=== PATIENT | female | born 1935 | race Caucasian/White ===

== ENCOUNTER 2021-10-26 15:06 | Emergency (ER) | payer OTHER, MEDICARE ==
--- OUTSIDE RECORDS SUMMARY | 2021-10-26 15:10 | XMS REPORT | Continuity of Care Document ---
:1935 Author Organization [facility] t Address [address] [place] [address] Care Team Providers Name Role Phone BECKY BRANT BANDA Primary Care Physician Unavailable SHANNON DELCID Attending Clinician Unavailable Shannon Delcid DO Attending Clinician YESICA GRIFFIN Attending Clinician Unavailable Danielle SORIANO, Mayuri Mckeon Attending Clinician 3, Ods Attending Clinician Unavailable Field-Hrt, Visual Attending Clinician Unavailable SHANNON DELCID Admitting Clinician Unavailable Payers Payer Name Policy Type Policy Number Effective Date Expiration Date S ource MEDICARE PART A \\T\\ [id number] 2001 B 00:00:00 [facility] [id number] 2012 MEDICARE SUPPLEMENT 00:00:00 MEDICARE PART A \\T\\ [id number] 2013 B - MEDICARE 00:00:00 [facility] MEDICARE [id number] SUPPLEMENT PLAN - [facility] Problems Condition Condition Condition Status Onset Resolution Last Treating Co mments Source Name Details Category Date Date Treatment Clinician Date OAG (open OAG (open Disease Active 2018-0 [place] [facility] angle angle 5-15 College glaucoma) glaucoma) 00:00: of suspect, suspect, 00 Medici n high risk, high risk, e bilateral bilateral Blepharopt Blepharopt Disease Active B osbaldo osis osis 5-17 College 00:00: of 00 Medicin e Open angle Open angle Disease Active 2012-02 Valentin roblero with with 1-06 College borderline borderline 00:00: of findings findings 00 Medici n and low and low e glaucoma glaucoma risk in risk in both eyes both eyes 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 2-13 Co llege eyes eyes 00:00: of 00 Medicin e Glaucoma Glaucoma Disease Active [place] [facility] suspect of suspect of 2-13 Co llege both eyes both eyes 00:00: of 00 Medicin e No known No known Disease Unive rs active active ity of problems problems [facility] Allergies, Adverse Reactions, Alerts Allergy Allergy Status Severity Reaction(s) Onset Inactive Treating Comm ents Source Name Type Date Date Clinician No Known DA Active U 2014-02 [facility] Allergie 0-22 Clear s 00:00: Guo 00 [facility] NO KNOWN Drug Active Univers ALLERGIE Class ity of S [facility] Social History Social Habit Start Date Stop Date Quantity Comments Source Exposure to Not sure [facility]-CoV-2 [facility] (event) Branch Alcohol intake 2021-05-26 2021-05-26 Current [facility] 00:00:00 00:00:00 non-drinker of [facility] alcohol Branch (finding) Tobacco use and 2017-12-18 2017-12-18 Never used Universit y of exposure 00:00:00 00:00:00 [facility] Tobacco Comment 2010-12-31 2010-12-31 lived with a [facility] of 00:00:00 00:00:00 smoker for 40 Medicine years Sex Ass[birth year] At [birth year] Universit y of 00:00:00 00:00:00 [facility] Smoking Status Start Date Stop Date Source Never smoker [facility] Medications Ordered Filled Start Stop Current Ordering Indication Dosage Frequency Signature Comments Components Source Medication Medication Date Date Medication? Clinician (SIG) Name Name iopamidol 2021- No [id number] 100mL 100 mL, Univers (ISOVUE 05-26 Intravenou ity o f 370-500 mL) 17:18: 17:18 s, ONCE, 1 [place] injection 00 :00 dose, On Medica l 100 mL 05/26/21 Branch at 1230, Routine NaCl 0.9% 2021- No 500mL at 999 Univ ers (NS) bolus 4-02 04-02 mL/hr, 500 it y of infusion 17:00: 18:29 mL, IV [place] 500 mL 00 :00 Infusion, Medical ONCE, 1 Branch dose, On 05/26/21 at 1200, STAT ARMOUR 0 Yes Take by [facility] THYROID OR 5-14 mouth. [place] 18:27: of 32 Medicin e LOSARTAN 0 Yes Take by [facility] POTASSIUM-H 5-14 mouth. Ruben august CTZ OR 18:27: of 32 Medicin e TRAMADOL 0 Yes Take by [facility] HCL OR 5-14 mouth. [place] 18:27: of 32 Medicin e aspirin 81 2018- Yes 81mg Take 81 mg [place] MG tablet 5-14 by mouth Ruben august 18:27: daily. of 32 Medicin e FISH OIL 2018-0 Yes [facility] 5-14 [place] 18:27: of 32 Medicin e Calcium 0 Yes Take by [facility] Carbonate-V 5-14 mouth. Ruben august itamin D 18:27: of (CALCIUM + 32 Medicin D OR) e Cyanocobala 0 Yes Take by [place] [facility] min 5-14 mouth. [place] (VITAMIN B 18:27: of 12 OR) 32 Medicin e metformin 0 Yes 500mg Take 500 [place] (GLUCOPHAGE 5-14 mg by [place] ) 500 MG 18:27: mouth 2 of tablet 32 times Medicin daily e (with meals). Multiple 0 Yes Take by [facility] Vitamins-Mi 5-14 mouth. Ruben august nerals 18:27: of (OCUVITE 32 Medicin ADULT 50+ e OR) acetaminoph 0 Yes [id number] 1{tbl} Take 1 Univers en-codeine 3-12 tablet by ity of 300-30 mg 00:00: mouth [place] tablet 00 every 8 Medical (eight) Branch hours as needed for Pain (scale 4-6). metFORMIN 2017-02 Yes 500mg Take 500 Uni vers 500 mg 0-25 mg by ity of tablet 19:19: mouth. [place] 58 Medical Branch levothyroxi 2017-02 Yes 50ug Take 50 Uni vers ne 50 mcg 0-25 mcg by ity of tablet 19:19: mouth [place] [address] every Medical morning. Branch losartan-hy 2017-02 Yes 1{tbl} Take 1 Tab Univers drochloroth 0-25 by mouth ity of iazide 19:18: daily. [place] (HYZAAR) Medical 100-12.5 mg Branch per tablet traMADOL 2017-02 Yes 50mg Take 50 mg Uni vers (ULTRAM) 50 0-25 by mouth ity of mg tablet 19:18: every 6 [place] [address] (six) Medical hours as Branch needed. VITAMIN B 2017-02 Yes Take by [facility] COMPLEX 0-25 mouth. ity of NO.12-NIACI 19:18: [place] N ORAL Medical Branch Fish 2017-02 Yes Take by [facility] [place] [facility] [place]-3 0-25 mouth. ity of Fatty Acids 19:18: [place] (FISH OIL) Medical 360-1,200 Branch mg Cap VITAMIN B 2017-02 Yes Take by [facility] COMP AND 0-25 mouth. ity of VIT C NO.6 19:18: [place] (VITAMIN B 12 Medical COMP WITH Branch VIT C NO.6 ORAL) CALCIUM 2017-02 Yes Take by [facility] [place] [facility] CARBONATE/V 0-25 mouth. ity of ITAMIN D3 19:18: [place] (CALCIUM Medical 500 + D, Branch D3, ORAL) aspirin 81 2017-02 Yes 81mg Take 81 mg U nivers mg chewable 0-25 by mouth ity of tablet 19:18: daily. [address] Biotin 1 mg 2017-02 Yes Take by Uni vers Tab 0-25 mouth. ity of 19:18: [address] Vital Signs Vital Name Observation Time Observation Value Comments Source Systolic blood 2021-05-26 18:17:00 154 mm[Hg] Univer sity of pressure [facility] Diastolic blood 2021-05-26 18:17:00 72 mm[Hg] [facility] rsity of pressure [facility] Respiratory rate 2021-05-26 18:17:00 14 /min [facility] [place] [facility] Oxygen saturation in 2021-05-26 18:17:00 98 /min [facility] Arterial blood by [facility] Pulse oximetry Branch Heart rate 2021-05-26 17:39:00 72 /min [facility] Body temperature 2021-05-26 16:33:00 36.78 [facility] [facility] [place] [facility] Body weight 2021-05-26 16:33:00 57.153 kg [facility] BMI 2021-05-26 16:33:00 23.05 kg/m2 [facility] Procedures Procedure Date / Time Performed Performing Clinician Sourc e URINALYSIS 2021-05-26 17:31:00 [facility] CT CERVICAL SPINE WO 2021-05-26 17:22:31 [facility] CONTRAST [facility] CT HEAD WO CONTRAST 2021-05-26 17:22:[facility] [place] [facility] ABDOMEN PELVIS W 2021-05-26 17:22:00 [facility] COMP. METABOLIC PANEL 2021-05-26 16:59:00 Singer Shannon [facility] ([id number]) [facility] CBC WITH DIFF 2021-05-26 16:59:00 [facility] LACTIC ACID WHOLE 2021-05-26 16:59:00 [facility] BLOOD [facility] Branch OCT, OPTIC NERVE - OU 2019-07-13 18:27:03 Mayuri Santos Mike [facility] BOTH EYES Medicine VILLATORO VISUAL FIELD 2019-07-13 18:27:01 Mayuri Santos Mike [facility] OU - BOTH EYES Medicine Plan of Care Planned Activity Planned Date Details Comments Source Future Scheduled TETANUS SHOT (ADULT) [facility] Test [code = TETANUS SHOT of [facility] (ADULT)] Future Scheduled FALL SCREEN [code = [facility] or [place] Test FALL SCREEN] of Medicine Future Scheduled OSTEOPOROSIS [facility] Arvin ege Test SCREENING [code = of Medicin e OSTEOPOROSIS SCREENING] Future Scheduled PNEUMOVAX >=65 [facility] Co llege Test (PPSV23) [code = of Medicine PNEUMOVAX >=65 (PPSV23)] Future Scheduled PREVNAR >= 65 [facility] Col lege Test (PCV13) [code = of Medicine PREVNAR >= 65 (PCV13)] Future Scheduled MEDICARE AWV [facility] Arvin ege Test (Initial) [code = of Medicin e MEDICARE AWV (Initial)] Future Scheduled FLU VACCINE > 6 [facility] C ollege Test MONTHS [code = FLU of Medici ne VACCINE > 6 MONTHS] Future Scheduled VILLATORO VISUAL 1 Occurrences [facility] Test FIELD - OU - BOTH starting 07/13/2019 of Medicine EYES [code = 88331] until 10/12/2020 Future Scheduled OCT, OPTIC NERVE - 1 Occurrences [facility] Test OU - BOTH EYES [code starting 07/13/2019 of Medicine = 13298] until 10/12/2020 Encounters Start End Encounter Admission Attending Care Care Encounter Source Date/Time Date/Time Type Type Clinicians Facility Department ID 2021-05-26 2021-05-26 Emergency X [facility] ERT [id number] Univers 11:35:00 13:35:00 SHANNON dawson of [facility] 2021-05-26 2021-05-26 Emergency [facility] [id number] Univers 11:35:00 13:35:00 Shannon MAHONEY 350.1.13.10 i ty [facility] [id number] [facility] [id number] [facility] 084 Branch 2020-10-12 2020-10-12 Outpatient SERVANDO GRIFFIN [facility] [id number] [facility] 13:51:12 16:04:54 YESICA august of Medicin e 2020-08-24 2020-08-24 Outpatient SERVANDO GRIFFIN [facility] [id number] [facility] 12:43:34 15:26:11 YESICA august of Medicin e 2019-07-13 2019-07-13 Office Mayuri Santos [facility] [id number] [facility] 12:58:46 13:38:46 Visit 3, Ods AMBULATOR 350.1.13.21 [place] Field-Hrt, Visual Y 0.2.7.2.686 [id number] [facility] carlos 300 e Results Test Description Test Time Test Comments Results Result Comments Source COMP. METABOLIC PANEL (86784) 2021-05-26 17:28:49 Test Item Value Reference Range Interpretation Comme nts NA (test code = 8563738583) 137 mmol/L 135-145 K (test code = 4201460957) 4.6 mmol/L 3.5-5.0 CL (test code = 3496393456) 101 mmol/L 98-108 CO2 TOTAL (test code = 6955245626) 24 mmol/L 23-31 AGAP (test code = 4833059771) 2-16 BUN (test code = 4106261651) 28 mg/dL 7-23 H GLUCOSE (test code = 9145577734) 116 mg/dL 70-110 H CREATININE (test code = 0.85 mg/dL 0.50-1.04 0392814507) TOTAL BILI (test code = 1.2 mg/dL 0.1-1.1 H 3808177162) CALCIUM (test code = 3621421734) 9.2 mg/dL 8.6-10.6 T PROTEIN (test code = 6283283650) 7.5 g/dL 6.3-8.2 ALBUMIN (test code = 8809190956) 4.6 g/dL 3.5-5.0 ALK PHOS (test code = 1748801530) 76 U/L 34-122 ALTv (test code = 1742-6) 17 U/L 5-35 AST(SGOT) (test code = 8864615640) 29 U/L 13-40 eGFR (test code = 9088422452) mL/min/1.73m2 SLICK (test code = SLICK) Association of Glomerular Filtration Rate (GFR) and Staging of Kidney Disease* + +-------- + ------+| GFR (mL/min/1.73 m2) ?| With Kidney Damage ?| ?Without Kidney Damage+ +-- + +| ?>90 ?| ?Stage one ?| ? Normal ?+ +------- + -------+| ?60-89 ?| ?Stage two ?| ? Decreased GFR ? + +-------- + ------+| ?30-59 ?| ?Stage three ?| ? Stage three ? + +-------- + ------+| ?15-29 ?| ?Stage four ? | ? Stage four ?+ +------- + -------+| ?<15 (or dialysis) ? ?| ?Stage five ? | ? Stage five ?+ +------- + -------+ *Each stage assumes the associated GFR level has been in effect for at least three months. ?Stages 1 to 5, with or without kidney disease, indicate chronic kidney disease. Notes: Determination of stages one and two (with eGFR >59mL/min/1.73 m2) requires estimation of kidney damage for at least three months as defined by structural or functional abnormalities of the kidney, manifested by either:Pathological abnormalities or Markers of kidney damage (including abnormalities in the composition of the blood or urine or abnormalities in imaging tests). Lab Interpretation (test code = Abnormal 22890-5) [facility] WITH [id number] 17:16:47 Test Item Value Reference Range Interpretation Comments WBC (test code = See_Comment [Automated 0190-2) message] The sy stem which generated this result transmitted reference range : 4.30 - 11.10 10*3/?L. The reference range was not used to interpret this result as normal/abnormal . RBC (test code = See_Comment [Automated 829-8) message] The sy stem which generated this result transmitted reference range : 3.93 - 5.25 10*6/?L. The reference range was not used to interpret this result as normal/abnormal . HGB (test code = 13.6 g/dL 11.6-15.0 718-7) HCT (test code = 42.1 % 35.7-45.2 4544-3) MCV (test code = 95.9 fL 80.6-95.5 H 787-2) MCH (test code = 31.0 pg 25.9-32.8 785-6) MCHC (test code = 32.3 g/dL 31.6-35.1 786-4) RDW-SD (test code = 54.6 fL 39.0-49.9 H 13213-4) RDW-CV (test code = 15.6 % 12.0-15.5 H 788-0) PLT (test code = See_Comment [Automated 777-3) message] The sy stem which generated this result transmitted reference range : 166 - 358 10*3/ ?L. The reference r jossue was not used to interpret this result as normal/abnormal . MPV (test code = 9.7 fL 9.5-12.9 51893-0) NRBC/100 WBC (test See_Comment [Automat ed code = 2802792002) message] The system which generated this result transmitted reference range : 0.0 - 10.0 /100 WBCs. The refer ence range was not u sed to interpret th is result as normal/abnormal . NRBC x10^3 (test code <0.01 See_Comment [Auto mated = 6670023339) message] The s ystem which generated this result transmitted reference range : 10*3/?L. The reference range was not used to interpret this result as normal/abnormal . GRAN MAT (NEUT) % 67.3 % (test code = 770-8) IMM GRAN % (test code 0.30 % = 3545392028) LYMPH % (test code = 21.7 % 736-9) MONO % (test code = 9.8 % 5905-5) EOS % (test code = 0.6 % 713-8) BASO % (test code = 0.3 % 706-2) GRAN MAT x10^3(ANC) 4.30 10*3/uL 1.88-7.09 (test code = 4673108997) IMM GRAN x10^3 (test <0.03 0.00-0.06 code = 1425405580) LYMPH x10^3 (test code 1.39 10*3/uL 1.32-3.29 = 731-0) MONO x10^3 (test code 0.63 10*3/uL 0.33-0.92 = 742-7) EOS x10^3 (test code = 0.04 10*3/uL 0.03-0.39 711-2) BASO x10^3 (test code <0.03 0.01-0.07 = 704-7) Lab Interpretation Abnormal (test code = 00278-3) [facility] [id number] 17:06:56 Test Item Value Reference Range Interpretation Comments LACTIC ACID (test code = 1.39 mmol/L 0.50-2.20 5863251839) Lab Interpretation (test code = Normal 32562-8) [facility] - OU - BOTH [id number] 19:00:13OCT Glaucoma RNFL Interpretation06/2019 OD OS Quality Good Good Interpretation Borderline N2020 G= 89Borderline YW3929 G= 87 Change Ytugcy0522 G= 482954 G= 851675 G= 90 Stable 2016 G= 437328 G= 895065 G= 85[facility] VISUAL FIELD - OU - BOTH [id number] 18:59:01VF Interpretation06/2019 OD24-2 OS24-2 Reliability Good Good Defect Scatter 2019 MD: -1.07 Scatter 2019 MD: -1.50 Deterioration Stable 2014 MD: -0.564447 MD: - 2.305751 MD: -0.361423 MD: -0.166388 MD: -1.92 [id number] MD: -0.699814 MD: - 2.704770 MD: -0.736850 MD: -2.545684 MD: -2.50[facility] XR FLUORO [id number] 12:20:00 Patient Name: RAVINDER AUSTIN Unit No: [id number] EXAMS: CPT CODE: [id number] XR [place]UORO NDL 75314 FLUOROSCOPICALLY GUIDED left prosthetic knee joint ASPIRATION COMMENT: After informed consent was obtained a 22-gauge needle is inserted into left prosthetic knee joint under fluoroscopic control using sterile technique. 2 mL of fluid was aspirated. This is sent to the lab for analysis. The patient tolerated the procedure well. 0.5 minutes of fluoroscopy time was used on this exam. at 1220 Reported and signed by: Vida Manley MD CC: Alexandra Matthews MD Technologist: Sanna Estrella RT.(R) Transcribed D/ (1220) [email or web address] [facility] NAME: RAVINDER AUSTIN [address] PHYS: Pascual Talley MD : 1935 AGE: 83 SEX: F [place], [place] [address] LOC: Y.LAB PHONE #: EXAM DATE: 05/07/2018 STATUS: DEP CLI FAX #: [phone] RAD #: D/C DT PAGE 1 Signed Report Patient Name: RAVINDER AUSTIN Unit No: [id number] EXAMS: CPT CODE: [id number] XR FLUORO [id number] (Continued) Orig Print D/T: S: 05/11/2018 (1223) [facility] [place] [facility] NAME: PATRICIA AUSTIN [address] PHYS: Alexandra Talley MD : 1935 AGE: 83 SEX: F [place], [place] [address] LOC: Y.LAB PHONE #: [phone] EXAM DATE: 05/07/2018 STATUS: DEP CLI FAX #: [phone] RAD #: D/C DT PAGE 2 Signed ReportCBC W/AUTO [id number] 12:31:00 Test Item Value Reference Range Interpretation Comments WHITE BLOOD CELL (test code = WBC) 11.5 K/mm3 5.8-11.0 H RED BLOOD CELL (test code = RBC) 4.27 M/mm3 4.2-5.4 N HEMOGLOBIN (test code = HGB) 12.8 g/dL 12-16 N HEMATOCRIT (test code = HCT) 38.1 % 37-47 N MEAN CELL VOLUME (test code = MCV) 89 fL 80-98 N MEAN CELL HGB (test code = MCH) 30.0 pg 27-34 N MEAN CELL HGB CONCENTRATION (test 33.6 g/dL 30.8-34.1 N code = MCHC) RED CELL DISTRIBUTION WIDTH (test 14.6 % 11-16 N code = RDW) PLT (test code = PLT) 261 K/mm3 130-400 N MEAN PLATELET VOLUME (test code = 10.8 fL 8.9-12.1 N MPV) NEUTROPHIL % (test code = NT%) 65.4 % 45-70 N LYMPHOCYTE % (test code = LY%) 26.0 % 20-40 N MONOCYTE % (test code = MO%) 7.8 % 3-10 N EOSINOPHIL % (test code = EO%) 0.3 % 1-5 L BASOPHIL % (test code = BA%) 0.2 % 0.0-1.1 N NEUTROPHIL # (test code = NT#) 7.53 K/mm3 2.00-7.50 H LYMPHOCYTE # (test code = LY#) 3.00 K/mm3 1.50-4.00 N MONOCYTE # (test code = MO#) 0.90 K/mm3 0.2-0.8 H EOSINOPHIL # (test code = EO#) 0.04 K/mm3 0.04-0.4 N BASOPHIL # (test code = BA#) 0.02 K/mm3 0.02-0.10 N MANUAL DIFF REQUIRED (test code = NO MANUAL DIFF MDIFF) NUCLEATED RED BLOOD CELL (test 0 % 0-0 N code = NRBC) SED [id number] 12:31:00 Test Item Value Reference Range Interpretation Comments SED RATE (test code = SEDW) 14 mm/hr 0-[id number] 12:04:00 Test Item Value Reference Range Interpretation Comments SYNOVIAL FLD COLOR (test BLOODY LT. YELLOW A code = COLSY) SYNOVIAL FLD APPEARANCE BLOODY CLEAR A (test code = APPSY) SYNOVIAL FLD VOLUME (test 0.5 mL code = VOLSY) SYNOVIAL FLD WBC (test code 4510.000 /MM3 0-200 H = WBCSY) SYNOVIAL FLD RBC (test code 2206382.000 /mm3 0-2 H = RBCSY) SYNOVIAL FLD POLY (test code 52 % 0-25 H = POLYSY) SYNOVIAL FLD LYMPHOCYTE 24 % 0-78 N (test code = LYMPHSY) SYNOVIAL FLD MONOCYTE (test 21 % 0-71 N code = MONOSY) SYNOVIAL FLD OTHER CELL EOSINOPHILS = 3 (test code = OTHERSY) SPECIMEN COMMENT: ASPIRATED PER DR MANLEY, LEFT KNEEC REACTIVE [id number] 11:55:00 Test Item Value Reference Range Interpretation Comments C REACTIVE PROTEIN (test code = < 0.2 mg/dL <0.9 CRP) CBC W/AUTO [id number] 11:45:00 Test Item Value Reference Range Interpretation Comments WHITE BLOOD CELL (test code = WBC) 11.5 K/mm3 5.8-11.0 H RED BLOOD CELL (test code = RBC) 4.27 M/mm3 4.2-5.4 N HEMOGLOBIN (test code = HGB) 12.8 g/dL 12-16 N HEMATOCRIT (test code = HCT) 38.1 % 37-47 N MEAN CELL VOLUME (test code = MCV) 89 fL 80-98 N MEAN CELL HGB (test code = MCH) 30.0 pg 27-34 N MEAN CELL HGB CONCENTRATION (test 33.6 g/dL 30.8-34.1 N code = MCHC) RED CELL DISTRIBUTION WIDTH (test 14.6 % 11-16 N code = RDW) PLT (test code = PLT) 261 K/mm3 130-400 N MEAN PLATELET VOLUME (test code = 10.8 fL 8.9-12.1 N MPV) NEUTROPHIL % (test code = NT%) 65.4 % 45-70 N LYMPHOCYTE % (test code = LY%) 26.0 % 20-40 N MONOCYTE % (test code = MO%) 7.8 % 3-10 N EOSINOPHIL % (test code = EO%) 0.3 % 1-5 L BASOPHIL % (test code = BA%) 0.2 % 0.0-1.1 N NEUTROPHIL # (test code = NT#) 7.53 K/mm3 2.00-7.50 H LYMPHOCYTE # (test code = LY#) 3.00 K/mm3 1.50-4.00 N MONOCYTE # (test code = MO#) 0.90 K/mm3 0.2-0.8 H EOSINOPHIL # (test code = EO#) 0.04 K/mm3 0.04-0.4 N BASOPHIL # (test code = BA#) 0.02 K/mm3 0.02-0.10 N MANUAL DIFF REQUIRED (test code = NO MANUAL DIFF MDIFF) NUCLEATED RED BLOOD CELL (test 0 % 0-0 N code = NRBC) SED [id number] 11:45:00 Test Item Value Reference Range Interpretation Comments SED RATE (test code = SEDW) mm/hr 0-[id number] 11:42:00 Test Item Value Reference Range Interpretation Comments SYNOVIAL FLD COLOR (test BLOODY LT. YELLOW A code = COLSY) SYNOVIAL FLD APPEARANCE BLOODY CLEAR A (test code = APPSY) SYNOVIAL FLD VOLUME (test 0.5 mL code = VOLSY) SYNOVIAL FLD WBC (test code 4510.000 /MM3 0-200 H = WBCSY) SYNOVIAL FLD RBC (test code 1663181.000 /mm3 0-2 H = RBCSY) SPECIMEN COMMENT: ASPIRATED PER DR MANLEY, LEFT KNEESYNOVIAL FLD CELL CT/DIFF 2018-05-07 11:41:00 Test Item Value Reference Range Interpretation Comments SYNOVIAL FLD COLOR (test LT. YELLOW code = COLSY) SYNOVIAL FLD APPEARANCE CLEAR (test code = APPSY) SYNOVIAL FLD VOLUME (test mL code = VOLSY) SYNOVIAL FLD WBC (test code 4510.000 /MM3 0-200 H = WBCSY) SYNOVIAL FLD RBC (test code 5057307.000 /mm3 0-2 H = RBCSY) SPECIMEN COMMENT: ASPIRATED PER DR MANLEY, LEFT KNEE"
--- NOTE | 2021-10-26 16:06 | RAD REPORT ---
EXAM DESCRIPTION: CT - CTHCSPWOC - 10/26/2021 3:46 pm CLINICAL HISTORY: Trauma, head and neck injury. trauma, head injury, blood thinners COMPARISON: No comparisons TECHNIQUE: Axial 5 mm thick images of the head were obtained. Axial 2 mm thick images of the cervical spine were obtained with sagittal and coronal reconstruction images generated and reviewed. All CT scans are performed using dose optimization technique as appropriate and may include automated exposure control or mA/KV adjustment according to patient size. FINDINGS: CT HEAD WITHOUT CONTRAST: No acute hemorrhage, hydrocephalus or extra-axial collection is identified.Moderate generalized brain atrophy is present with mild periventricular and deep white matter chronic microvascular ischemic ch anges.No areas of brain edema or midline shift. The paranasal sinuses and mastoids are clear.The calvarium is intact. CT CERVICAL SPINE WITHOUT CONTRAST: No fracture or subluxation.Mild cervical degenerative changes are present.No prevertebral soft tissue s swelling is identified. IMPRESSION: No acute intracranial or cervical spine findings.
--- NOTE | 2021-10-26 16:36 | RAD REPORT ---
EXAM DESCRIPTION: RAD - Lumbar Spine 3 Views - 10/26/2021 4:03 pm CLINICAL HISTORY: PAIN Radiculopathy COMPARISON: No comparisons FINDINGS: Diffuse osteopenia is seen. Disc thinning is present with vacuum disc degeneration at L2-3 and L3-4. Mild dextroscoliosis is present. Wedging of anterior superior aspects of the upper lumbar vertebra has a chronic appearance. Aortic atherosclerosis. 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 No acute fracture suspected, although degree of osteopenia does limit assessment.
--- NOTE | 2021-10-26 16:38 | RAD REPORT ---
EXAM DESCRIPTION: RAD - Thoracic Spine Ap/Lat - 10/26/2021 4:04 pm CLINICAL HISTORY: fall Radiculopathy COMPARISON: No comparisons FINDINGS: Diffuse osteopenia is noted. Mild wedge compression deformity of lower thoracic vertebral bodies are present, likely chronic. No significant malalignment. IMPRESSION: Mild thoracic spondylosis is present. No acute finding suspected.
[2021-10-26] MEDS ORDERED: ACETAMINOPHEN 325 MG TABLET ONE (16:45)
--- NOTE | 2021-10-26 17:14 | EDPHYS ---
Physician Documentation [facility] Name: Anna Cuello Age: 86 yrs Sex: Female : 1935 Arrival Date: 10/26/2021 Time: 15:18 Bed 2 Private MD: ED Physician Saeed Kim HPI: 10/26 23:43 This 86 yrs old Female presents to ER via EMS with complaints of fall. kb 23:43 Details of fall: The patient fell from an upright position, while walking. Onset: The kb symptoms/episode began/occurred just prior to arrival. Associated injuries: The patient sustained injury to the head, abrasion, hematoma, pain, neck injury, pain, pain with movement, tenderness, upper back injury, pain, pain with movement, tenderness, injury to the low back, pain, pain with movement, tenderness. Severity of symptoms: At their worst the symptoms were moderate, in the emergency department the symptoms are unchanged. The patient has not experienced similar symptoms in the past. The patient has not recently seen a physician. Pt was shopping at [employer] when her walker got away from her and she fell backwards. c/o headache, neck and back pain. Denies loc. Historical: - Allergies: 15:22 No Known Allergies; ld1 - Home Meds: 15:22 [employer] Thyroid 120 mg oral tab 1 tab once daily [Active]; allopurinol 300 mg Oral tab 1 tab ld1 once daily [Active]; metformin 500 mg Oral Tb24 1 tab once daily [Active]; tramadol 50 mg Oral tab 1 tab every 4-6 hours [Active]; losartan-hydrochlorothiazide 100-12.5 mg oral tab 1 tab once daily [Active]; methenamine hippurate 1 gram oral tab 1 tab 2 times per day [Active]; Xarelto 15 mg oral tab 1 tab once daily [Active]; amiodarone 200 mg Oral tab 1 tab once daily [Active]; - PMHx: 15:22 Hypothyroidism; Gout; Diabetes mellitus; Hypertensive disorder; ld1 - PSHx: 15:22 Total abdominal hysterectomy; ld1 - Immunization history:: Adult Immunizations up to date, Client reports receiving the 2nd dose of the Covid vaccine. - Social history:: Smoking status: Patient denies any tobacco usage or history of. Patient/guardian denies using alcohol. - Immunization history: Last tetanus immunization: unknown. ROS: 23:43 Constitutional: Negative for fever, chills, and weight loss. kb 23:43 Neck: Positive for pain with movement, pain at rest, bony tenderness. 23:43 Back: Positive for pain at rest, pain with movement, of the thoracic area and lumbar area. 23:43 Skin: Positive for abrasion(s). 23:43 Neuro: Positive for headache. 23:43 All other systems are negative. Exam: 23:43 Constitutional: This is a well developed, well nourished patient who is awake, alert, kb and in no acute distress. Eyes: Pupils equal round and reactive to light, extra-ocular motions intact. Lids and lashes normal. Conjunctiva and sclera are non-icteric and not injected. Cornea within normal limits. Periorbital areas with no swelling, redness, or edema. ENT: Moist Mucous membranes Cardiovascular: Regular rate and rhythm with a normal S1 and S2. No gallops, murmurs, or rubs. No pulse deficits. Respiratory: Respirations even and unlabored. No increased work of breathing. Talking in full sentences Abdomen/GI: Soft, non-tender. No distention MS/ Extremity: Pulses equal, no cyanosis. Neurovascular intact. Full, normal range of motion. Neuro: Awake and alert, GCS 15, oriented to person, place, time, and situation. Moves all extremities. Normal gait. Psych: Awake, alert, with orientation to person, place and time. Behavior, mood, and affect are within normal limits. 23:43 Head/face: Noted is no obvious of injury or deformity except abrasion(s), that are mild, of the right occipital area, hematoma, that is moderate, of the right occipital area. 23:43 Neck: C-spine: vertebral tenderness, that is mild, diffusely. 23:43 Back: vertebral tenderness, is appreciated at thoracic spine and lumbar spine. 23:43 Skin: injury, abrasion(s), small abrasion noted, of the right occipital area. Vital Signs: 15:21 BP 159 / 73; Pulse 84; Resp 18; Temp 97.9(TE); Pulse Ox 100% on R/A; Weight 63.96 kg; ld1 Height 5 ft. 4 in. (162.56 cm); Pain 9/10; 17:09 BP 176 / 94; Pulse 73; Resp 18; Pulse Ox 100% on R/A; Pain 5/10; ld1 15:21 Body Mass Index 24.20 (63.96 kg, 162.56 cm) ld1 Edmundo Coma Score: 15:28 Eye Response: spontaneous(4). Verbal Response: oriented(5). Motor Response: obeys ld1 commands(6). Total: 15. Trauma Score (Adult): 15:28 Eye Response: spontaneous(1); Verbal Response: oriented(1); Motor Response: obeys ld1 commands(2); Systolic BP: > 89 mm Hg(4); Respiratory Rate: 10 to 29 per min(4); [place] Score: 15; Trauma Score: 12 MDM: 15:18 Patient medically screened. kb 23:45 Data reviewed: vital signs, nurses notes. Data interpreted: Pulse oximetry: on room air kb is 100 %. Interpretation: normal. Counseling: I had a detailed discussion with the patient and/or guardian regarding: the historical points, exam findings, and any diagnostic results supporting the discharge/admit diagnosis, radiology results, the need for outpatient follow up, a family practitioner, to return to the emergency department if symptoms worsen or persist or if there are any questions or concerns that arise at home. 10/26 15:19 Order name: CT Head C Spine; Complete Time: 16:10 kb 10/26 15:19 Order name: Lumbar Spine (3 Views) XRAY; Complete Time: 16:53 kb 10/26 15:45 Order name: Thoracic Spine Ap/Lat; Complete Time: 16:53 EDMS Administered Medications: 17:09 Drug: Tylenol 650 mg Route: PO; ld1 Disposition Summary: 10/26/21 17:13 Discharge Ordered Location: Home kb Condition: Stable kb Diagnosis - Fall on same level from slipping, tripping and stumbling without subsequent kb striking against object - Unspecified injury of head, initial encounter kb - Abrasion of scalp kb - Cervicalgia kb - Back pain kb Followup: kb - With: Emergency Department - When: As needed - Reason: Worsening of condition Followup: kb - With: Private Physician - When: 2 - 3 days - Reason: Recheck today's complaints, Continuance of care, Re-evaluation by your physician Discharge Instructions: - Discharge Summary Sheet kb - Hematoma, [id number] kb - Musculoskeletal Pain kb - Head Injury, Adult, [id number] kb Forms: - Medication Reconciliation Form kb - Thank You Letter kb - Antibiotic Education kb - Prescription Opioid Use kb Addendum: 10/30/2021 07:36 Co-signature as Attending Physician, Saeed Kim MD. r n Signatures: Dispatcher [employer] EDMS Krystal Brady, RN OBGYN-C RN OBGYN-Ckb Saeed Kim MD MD rn Dibbern, Lauren, RN RN ld1 Corrections: (The following items were deleted from the chart) 10/26 15:26 15:22 PMHx: Hyperthyroidism; ld1 ld1 15:44 15:23 Thoracic Spine W obliques ordered. EDMS EDMS
--- NOTE | 2021-10-26 17:14 | ER ---
Nurse's Notes [facility] Name: Anna Cuello Age: 86 yrs Sex: Female : 1935 Arrival Date: 10/26/2021 Time: 15:18 Bed 2 Private MD: Diagnosis: Fall on same level from slipping, tripping and stumbling without subsequent striking against object;Unspecified injury of head, initial encounter;Abrasion of scalp;Cervicalgia;Back pain Presentation: 10/26 15:21 Chief complaint: EMS states: toned out to [employer] due to a fall. Pt reports walker ld1 getting "away from her", pt fell backwards and hit head on concrete. Pt c/o pain in the back of head. Denies LOC - pt is on blood thinners. Coronavirus screen: At this time, the client does not indicate any symptoms associated with coronavirus-19. Ebola Screen: No symptoms or risks identified at this time. Initial Sepsis Screen: Does the patient meet any 2 criteria? No. Patient's initial sepsis screen is negative. Does the patient have a suspected source of infection? No. Patient's initial sepsis screen is negative. Initial Sepsis Screen: Does the patient meet any 2 criteria?. Risk Assessment: Do you want to hurt yourself or someone else? Patient reports no desire to harm self or others. Onset of symptoms was October 26, 2021. 15:21 Method Of Arrival: EMS: [facility] ld1 15:21 Acuity: JERALD 3 ld1 15:28 Care prior to arrival: None. Mechanism of Injury: Fall from standing position. Trauma ld1 event details: Injury occurred in the [facility], Injury occurred: in a public building. Injury occurred: October 26, 2021. Triage Assessment: 15:22 General: Appears in no apparent distress. comfortable, Behavior is calm, cooperative, ld1 appropriate for age. Pain: Complains of pain in scalp Pain does not radiate. Pain currently is 9 out of 10 on a pain scale. Quality of pain is described as throbbing. EENT: No signs and/or symptoms were reported regarding the EENT system. EENT: Neuro: Neuro: Level of Consciousness is awake, alert, obeys commands, Oriented to person, place, time, situation, Appropriate for age Reports headache. Cardiovascular: Capillary refill < 3 seconds Patient's skin is warm and dry. Rhythm is irregular. Respiratory: Airway is patent Respiratory effort is even, unlabored. GI: Abdomen is round non-distended. : No signs and/or symptoms were reported regarding the genitourinary system. Derm: No signs and/or symptoms reported regarding the dermatologic system. Musculoskeletal: No signs and/or symptoms reported regarding the musculoskeletal system. Trauma Activation: Alert Physician: ED Physician; Name: ; Notified At: 15:19; Arrived At: Physician: General Surgeon; Name: ; Notified At: 15:19; Arrived At: Physician: Radiology; Name: ; Notified At: 15:19; Arrived At: Physician: Respiratory; Name: ; Notified At: 15:19; Arrived At: Physician: Lab; Name: ; Notified At: 15:19; Arrived At: Historical: - Allergies: 15:22 No Known Allergies; ld1 - Home Meds: 15:22 [employer] Thyroid 120 mg oral tab 1 tab once daily [Active]; allopurinol 300 mg Oral tab 1 tab ld1 once daily [Active]; metformin 500 mg Oral Tb24 1 tab once daily [Active]; tramadol 50 mg Oral tab 1 tab every 4-6 hours [Active]; losartan-hydrochlorothiazide 100-12.5 mg oral tab 1 tab once daily [Active]; methenamine hippurate 1 gram oral tab 1 tab 2 times per day [Active]; Xarelto 15 mg oral tab 1 tab once daily [Active]; amiodarone 200 mg Oral tab 1 tab once daily [Active]; - PMHx: 15:22 Hypothyroidism; Gout; Diabetes mellitus; Hypertensive disorder; ld1 - PSHx: 15:22 Total abdominal hysterectomy; ld1 - Immunization history:: Adult Immunizations up to date, Client reports receiving the 2nd dose of the Covid vaccine. - Social history:: Smoking status: Patient denies any tobacco usage or history of. Patient/guardian denies using alcohol. - Immunization history: Last tetanus immunization: unknown. Screenin:28 Abuse screen: Denies threats or abuse. Denies injuries from another. Tuberculosis ld1 screening: No symptoms or risk factors identified. 15:31 Nutritional screening: No deficits noted. Fall Risk None identified. ld1 Primary Survey: 15:28 NO uncontrolled hemorrhage observed. Breathing/Chest: Spontaneous respiratory effort, ld1 equal unlabored respirations, breath sounds clear bilaterally, regular pattern, symmetrical chest rise and fall. Circulation: No external hemorrhage present. Regular and strong central pulse, skin warm/dry/normal color. Disability Client is alert. Exposure/Environment: All clothing and personal items were removed. Forensic evidence collection is not deemed to be indicated at this time. Items placed in patient belonging bag. There is no evidence of uncontrolled external bleeding. Reassessment Breathing: Spontaneous respiratory effort, equal unlabored respirations, breath sounds clear bilaterally, regular pattern with symmetrical chest rise and fall. Circulation: No external hemorrhage noted. Regular and strong central pulse, skin warm/dry/normal color. Disability: Alert. Assessment: 15:27 Reassessment: See triage assessment. ld1 15:28 General: Appears in no apparent distress. comfortable, Behavior is calm, cooperative, ld1 appropriate for age. Pain: Complains of pain in scalp Pain does not radiate. Pain currently is 9 out of 10 on a pain scale. Quality of pain is described as throbbing, Pain began suddenly. Neuro: Level of Consciousness is awake, alert, obeys commands, Oriented to person, place, time, situation. EENT: No signs and/or symptoms were reported regarding the EENT system. Cardiovascular: Capillary refill < 3 seconds Patient's skin is warm and dry. Rhythm is irregular. Respiratory: Airway is patent Respiratory effort is even, unlabored. GI: Abdomen is round non-distended. : No signs and/or symptoms were reported regarding the genitourinary system. Derm: No signs and/or symptoms reported regarding the dermatologic system. Musculoskeletal: No signs and/or symptoms reported regarding the musculoskeletal system. Vital Signs: 15:21 BP 159 / 73; Pulse 84; Resp 18; Temp 97.9(TE); Pulse Ox 100% on R/A; Weight 63.96 kg; ld1 Height 5 ft. 4 in. (162.56 cm); Pain 9/10; 17:09 BP 176 / 94; Pulse 73; Resp 18; Pulse Ox 100% on R/A; Pain 5/10; ld1 15:21 Body Mass Index 24.20 (63.96 kg, 162.56 cm) ld1 Edmundo Coma Score: 15:28 Eye Response: spontaneous(4). Verbal Response: oriented(5). Motor Response: obeys ld1 commands(6). Total: 15. Trauma Score (Adult): 15:28 Eye Response: spontaneous(1); Verbal Response: oriented(1); Motor Response: obeys ld1 commands(2); Systolic BP: > 89 mm Hg(4); Respiratory Rate: 10 to 29 per min(4); [place] Score: 15; Trauma Score: 12 ED Course: 15:18 Patient arrived in ED. eb 15:18 Krystal Brady FNP-C is [facility]. kb 15:18 Saeed Kim MD is Attending Physician. kb 15:21 Nikki Barton RN is Primary Nurse. ld1 15:22 Triage completed. ld1 15:22 Arm band placed on right wrist. ld1 15:28 Patient has correct armband on for positive identification. Placed in gown. Bed in low ld1 position. Call light in reach. Side rails up X2. Patient maintains SpO2 saturation greater than 95% on room air. 15:28 Patient maintains SpO2 saturation greater than 95% on room air. ld1 15:31 No provider procedures requiring assistance completed. ld1 15:48 CT Head C Spine In Process Unspecified. EDMS 16:07 Lumbar Spine (3 Views) XRAY In Process Unspecified. EDMS 16:07 Thoracic Spine Ap/Lat In Process Unspecified. EDMS 17:09 Patient did not have IV access during this emergency room visit. ld1 17:09 Thermoregulation: warm blanket given to patient. ld1 Administered Medications: 17:09 Drug: Tylenol 650 mg Route: PO; ld1 Medication: 17:10 VIS not applicable for this client. ld1 Intake: 15:28 PO: 50ml (Water); Total: 50ml. ld1 Outcome: 17:09 Discharged to home via wheelchair, with family. ld1 17:09 Condition: stable 17:09 Discharge instructions given to patient, Instructed on discharge instructions, follow up and referral plans. Demonstrated understanding of instructions, follow-up care. 17:09 Patient's length of stay was not longer than 2 hours. ld1 17:13 Discharge ordered by . kb 17:19 Patient left the ED. ld1 Signatures: Dispatcher [employer] EDMS Jose Antonio, Krystal, [employer]UCKING [employer]WING MACHINE OPERATOR-C CHUCKING [employer] SAWING MACHINE OPERATOR-Ckb Carissa Fried Lauren, RN RN ld1 Corrections: (The following items were deleted from the chart) 15:26 15:22 PMHx: Hyperthyroidism; ld1 ld1
[2021-10-26 18:26] VITALS: TEMP 97.9; O2SAT 100
[2021-10-26 18:28] VITALS: BP 176/94
== END 2021-10-26 17:19 | disposition home or self-care (01) ==
LOC: ER 15:06
DX: S00.01XA Abrasion of scalp, initial encounter (principal); M54.2 Cervicalgia; M54.9 Dorsalgia, unspecified; W01.0XXA Fall on same level from slipping, tripping and stumbling without subsequent striking against object, initial encounter; E11.9 Type 2 diabetes mellitus without complications; I10 Essential (primary) hypertension; E03.9 Hypothyroidism, unspecified; Z79.01 Long term (current) use of anticoagulants
CPT/HCPCS: 70450; 72070; 72100; 72125; 99284

== ENCOUNTER 2024-05-08 14:27 | Emergency (ER) | payer OTHER, MEDICARE ==
--- OUTSIDE RECORDS SUMMARY | 2024-05-08 14:34 | XMS REPORT | Continuity of Care Document ---
Author Name Unknown Address [address] [facility] [address] [place] [address] [facility] [place] Address [address] [facility] [address] [place] [address] Care Team Providers Care Entry Analyst Name Role Phone MAYCOL PATEL Primary Care Physician Unavailab MIKE Wallace Attending Clinician Unavail able MIKE WALDEN Attending Clinician Unavail able JANETTE MUÑOZ Attending Clinician Unavailable JANETTE MUÑOZ Attending Clinician Unavailable JENNIFER HORTA Attending Clinician Unavailable Jennifer England Attending Clinician [phone] Unknown, Attending Attending Clinician UnavailMike Vuong MD Attending Clinician [phone] Alisha Escalera MD Attending Clinician [phone] ALISHA ESCALERA Attending Clinician Unavailable KAVYA TUBBS Attending Clinician UnavailKavya Chow Attending Clinician [phone] HILDA ALARCON Attending Clinician Unavailable Hilda Roach Attending Clinician [phone] Unknown, Attending Attending Clinician Unavailab jared Radiology Attending Clinician Unavailable RADIOLOGY Attending Clinician Unavailable Mike Walden MD Attending Clinician +[phone] [email or web address] Attending Clinician Unavail able NINA SAENZ Attending Clinician Unavailable Doctor Unassigned, [employer] Attending Clinician U everton Cooper RN, Cassandra Attending Clinician Unavailable Jong SORIANO, Beau Attending Clinician +- [phone] Jaki SORIANO, Gabrielle Attending Clinician [phone] ABE CARL Attending Clinician Unavailable Abe Carl DO Attending Clinician [phone] Jennifer Engalnd Attending Clinician + [phone] Samantha Attending Clinician UnavailRENNY [place] Attending Clinician Unavailable Renny Werner MD Attending Clinician +[phone] LIBIA NGUYEN Attending Clinician Unavailab Libia Delvalle DO Attending Clinician +[phone] [email or web address]_Tino_H Admitting Clinician Unavail able Beau Sunshine MD Admitting Clinician + [phone] BEAU SUNSHINE Admitting Clinician Unavailable Samantha Admitting Clinician Unavaila ABE Sheehan Admitting Clinician Unavailable RENNY WERNER Admitting Clinician Unavailable LIBIA NGUYEN Admitting Clinician Unavailab le Payers Payer Name Policy Type Policy Number Effective Date Expirati on Date Source MEDICARE PART A \\T\\ B [id number] 2001 00:00:00 [facility] MEDICARE SUPPLEMENT [id number] 2012 00:00:00 [place] [employer] [id number] 2001 00:00:00 [facility] OPTIONS (MEDICARE SUPPLEMENT) [id number] 2015 00:00:00 Problems Condition Name Condition Details Condition Category Status Onset Date Resolution Date Last Treatment Date Treating Clinician Comments Source Vaginitis Vaginitis Problem Active 805 00:00: 00 [facility] Bursitis of hip Bursitis of Hip Problem Active 130 00:00: 00 [facility] Hematoma Hematoma Disease Active 09-23 00:00: 00 [facility] Thoracic back pain Thoracic Back Pain Problem Active 07-02 00:00: 00 [facility] Low back pain Low Back Pain Problem Active 07-02 00:00: 00 [facility] Osteoporos is Osteoporos is Problem Active 07-02 00:00: 00 [facility] Compressio n fracture of thoracic spine Compressio n Fracture of Thoracic Spine Problem Active 07-02 00:00: 00 [facility] 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 Problem Active 07-02 00:00: 00 [facility] Pain of left shoulder joint Pain of Left Shoulder Joint Problem Active 06-01 00:00: 00 [facility] 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 Osteoarthr itis of Joint of Left Shoulder Region Problem Active 06-01 00:00: 00 [facility] Contractur e of Achilles tendon Contractur e of Achilles Tendon Problem Active 2016-02 00:00: 00 [facility] Plantar fasciitis Plantar Fasciitis Problem Active 2016-02 00:00: 00 [facility] Idiopathic osteoarthr itis Idiopathic Osteoarthr itis Problem Active 2016-02 00:00: 00 [facility] Urinary incontinen ce due to urethral sphincter incompeten ce Urinary Incontinen ce Due to Urethral Sphincter Incompeten ce Problem Active 2014-02 00:00: 00 [facility] Disorder of urethra Disorder of Urethra Problem Active 2014-02 00:00: 00 [facility] Posterior vaginal wall prolapse Posterior Vaginal Wall Prolapse Problem Active 2014-02 00:00: 00 [facility] Pelvic congestion syndrome Pelvic Congestion Syndrome Problem Active 2014-02 00:00: 00 [facility] Finding of female genital functions Finding of Female Genital Functions Problem Active 2014-02 00:00: 00 [facility] Urethral sphincter function - finding Urethral Sphincter Function - Finding Problem Active 2015-1 0-05 00:00: 00 [facility] Midline cystocele Midline Cystocele Problem Active 09-23 00:00: 00 [facility] 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 Female Proctocele without Uterine Prolapse Problem Active 09-23 00:00: 00 [facility] Uterovagin al prolapse Uterovagin al Prolapse Problem Active 09-23 00:00: 00 [facility] Urinary incontinen ce Urinary Incontinen ce Problem Active 09-23 00:00: 00 [facility] Mixed urinary incontinen ce Mixed Urinary Incontinen ce Problem Active 09-23 00:00: 00 [facility] Increased frequency of urination Increased Frequency of Urination Problem Active 09-23 00:00: 00 [facility] Urgent desire to urinate Urgent Desire to Urinate Problem Active 09-23 00:00: 00 [facility] Incomplete uterovagin al prolapse Incomplete Uterovagin al Prolapse Problem Active 08-09 00:00: 00 [facility] Vaginitis and vulvovagin itis Vaginitis and Vulvovagin itis Problem Active 04-18 00:00: 00 [facility] Lateral cystocele Lateral Cystocele Problem Active 04-18 00:00: 00 [facility] 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 Problem Active 09-07 00:00: 00 [facility] Deep vein phlebitis and thrombophl ebitis of the leg Deep Vein Phlebitis and Thrombophl ebitis of the Leg Problem Active 10-03 00:00: 00 [facility] Unstable knee Unstable Knee Problem Active 10-03 00:00: 00 [facility] Radiculiti s due to displaceme nt of lumbar interverte bral disc Radiculiti s Due to Displaceme nt of Lumbar Interverte bral Disc Problem Active 07-14 00:00: 00 [facility] Spondyloli sthesis L5/S1 level Spondyloli sthesis L5/S1 Level Problem Active 07-14 00:00: 00 [facility] Degenerati on of lumbar interverte bral disc Degenerati on of Lumbar Interverte bral Disc Problem Active 05-16 00:00: 00 [facility] Procedure aiding diagnosis Procedure Aiding Diagnosis Problem Active 2009-02 00:00: 00 [facility] Myofascial low back pain Myofascial Low Back Pain Problem Active 2009-02 00:00: 00 [facility] Atrophic vaginitis Atrophic [facility]aginitis [facility] Granulatio n of tissue Granulatio n of Tissue Problem Active [facility] No known active problems No known active problems Disease [facility] Allergies, Adverse Reactions, Alerts Allergy Name Allergy Type Status Severity Reaction(s) Onset Date Inactive Date Treating Clinician Comments Source CIPROFLO XACIN DRUG INGREDI Active Rash 09-23 00:00: 00 [facility] Ciproflo xacin Propensi ty to adverse reaction s Active Rash 09-23 00:00: 00 [facility] No Known Allergie s DA Active U 2014-02 00:00: 00 [facility] SHELLFIS H DERIVED Allergy to substanc e Active [facility] NO KNOWN ALLERGIE S Drug Class Active [facility] Social History Social Habit Start Date Stop Date Quantity Comments Source Gender identity [facility] function 2024-04-12 00:00:00 2024-04-12 00:00:00 [facility] Alcoholic beverage intake 2024-04-12 00:00:00 2024-04-12 00:00:00 Current non-drinker of alcohol (finding) [facility] Alcohol intake 2022-12-16 00:00:00 2022-12-16 00:00:00 Current non-drinker of alcohol (finding) [facility] Tobacco use and exposure 2022-09-23 00:00:00 2022-09-23 00:00:00 Smokeless tobacco non-user [facility] Exposure to SARS-CoV-2 (event) 2022-07-14 00:00:00 2022-07-24 09:04:00 Not sure [facility] Sex assigned at 1935 00:00:00 1935 00:00:00 [facility] Smoking Status Start Date Stop Date Source Never smoked tobacco [facility] Medications Ordered Medication Name Filled Medication Name Start Date Stop Date Current Medication? Ordering Clinician Indication Dosage Frequency Signature (SIG) Comments Components Source ondansetron 4 mg disintegrat ing tablet 04-23 00:00: 00 04-29 05:59 :00 Yes [id number] 4mg Take 1 tablet by mouth every 8 (eight) hours as needed for Nausea and Vomiting (N/V) for up to 5 days. [facility] rivastigmin e 9.5 mg/24 hour transdermal patch 04-15 00:00: 00 04-15 00:00 :00 Yes [id number] 1{patch } Apply 1 Patch to skin in the morning. [facility] cefdinir 300 mg capsule 04-13 00:00: 00 04-21 05:59 :00 Yes [id number] 300mg Take 1 capsule by mouth every 12 (twelve) hours for 7 days. [facility] Nitrofurant oin&Nit. Macrocryst 100 mg capsule 03-28 00:00: 00 04-03 05:59 :00 Yes [id number] 100mg Take 1 capsule by mouth in the morning and 1 capsule in the evening. Do all this for 5 days. [facility] rivastigmin e 9.5 mg/24 hour patch 2023-02 00:00: 00 04-12 00:00 :00 No [id number] 1{patch } Apply 1 Patch to skin in the morning. [facility] rivastigmin e 9.5 mg/24 hour patch -05 00:00: 00 12-07 00:00 :00 No [id number] APPLY 1 PATCH TOPICALLY TO THE SKIN IN THE MORNING [facility] traMADOL (ULTRAM) 50 mg tablet 2022-02 0 15:19: 59 12-16 00:00 :00 No 50mg Take 50 mg by mouth every 6 (six) hours as needed. [facility] aspirin 81 mg chewable tablet 2022-02 15:19: 46 12-16 00:00 :00 No 81mg Take 81 mg by mouth daily. [facility] polyethylen e glycol 3350 17 gram powder 10-01 00:00: 00 Yes [id number] 17g Take 1 Packet by mouth in the morning. [facility] traMADOL (ULTRAM) 50 mg tablet 09-30 17:51: 41 Yes 50mg Take 50 mg by mouth every 6 (six) hours as needed. [facility] aspirin 81 mg chewable tablet 09-30 17:51: 41 Yes 81mg Take 81 mg by mouth daily. [facility] CALCIUM CARBONATE/V ITAMIN D3 (CALCIUM 500 + D, D3, ORAL) 09-30 17:51: 41 Yes Take by mouth. [facility] Fish Oil-Covel-3 Fatty Acids (FISH OIL) 360-1,200 mg Cap 09-30 17:51: 41 Yes Take by mouth. [facility] Biotin 1 mg Tab 09-30 17:51: 41 Yes Take by mouth. [facility] levothyroxi ne 50 mcg tablet 09-30 17:51: 41 Yes 50ug Take 1 tablet by mouth every morning. [facility] metFORMIN 500 mg tablet 09-30 12:35: 06 09-30 00:00 :00 No 500mg Take 500 mg by mouth. [facility] acetaminoph en 325 mg tablet 09-30 00:00: 00 Yes [id number] 650mg Take 2 tablets by mouth every 6 (six) hours as needed for Pain (scale 4-6). [facility] amitriptyli ne 10 mg tablet 09-30 00:00: 00 12-07 00:00 :00 No [id number] 10mg Take 1 tablet by mouth at bedtime. [facility] traMADOL (ULTRAM) 50 mg tablet 09-29 13:37: 13 Yes 50mg Take 50 mg by mouth every 6 (six) hours as needed. [facility] VITAMIN B COMPLEX NO.12-NIACI N ORAL 09-29 13:37: 13 Yes Take by mouth. [facility] Fish Oil-Covel-3 Fatty Acids (FISH OIL) 360-1,200 mg Cap 09-29 13:37: 13 Yes Take by mouth. [facility] aspirin 81 mg chewable tablet 09-29 13:37: 13 Yes 81mg Take 81 mg by mouth daily. [facility] Biotin 1 mg Tab 09-29 13:37: 13 Yes Take by mouth. [facility] metFORMIN 500 mg tablet 09-29 13:37: 13 Yes 500mg Take 500 mg by mouth. [facility] levothyroxi ne 50 mcg tablet 09-29 13:37: 13 Yes 50ug Take 50 mcg by mouth every morning. [facility] iopamidol (ISOVUE 300-500 mL) injection 200 mL 09-29 02:00: 00 09-29 02:00 :00 No [id number] 200mL 200 mL, Intravenou s, ONCE, 1 dose, On 09/28/22 at 2100, Routine [facility] rivaroxaban 20 mg tablet 09-29 00:00: 00 10-30 04:59 :00 No 20mg Take 1 tablet by mouth in the morning for 30 days. Indication s: Atrial FIbrillati on [facility] acetaminoph en 325 mg tablet 09-29 00:00: 00 10-14 04:59 :00 No [id number] 650mg Take 2 tablets by mouth every 6 (six) hours as needed for Pain (scale 1-3) for up to 14 days. [facility] amitriptyli ne 10 mg tablet 09-29 00:00: 00 10-14 04:59 :00 No [id number] 10mg Take 1 tablet by mouth at bedtime for 14 days. [facility] polyethylen e glycol 3350 powder 17 g 09-27 19:30: 00 Yes 17g 17 g, Oral, DAILY, First dose on Fri09/27/22 at 1430, Until Discontinu ed, Routine [facility] ondansetron (ZOFRAN (PF)) injection 4 mg 09-27 19:16: 44 Yes 4mg 4 mg, Slow IV Push, Q6HPRN, Nausea and Vomiting (N/V), Starting on Fri09/27/22 at 1416
Do ses of ondansetro n 16 mg and above need to be administer ed via IV piggyback. For Dose >=24mg ECG monitoring is advisable.
[facility] bisacodyL (DULCOLAX) suppository 10 mg 09-27 19:16: 29 Yes 10mg 10 mg, Rectal, QHSPRN, Starting on Fri09/27/22 at 1416, Until Discontinu ed, Routine, Constipati on unresolved by oral medication s [facility] glycerin/mi neral oil (AGLO ENEMA) (COMPOUNDED ) Enem 225 mL 09-27 17:45: 00 09-27 19:27 :00 No 225mL 225 mL, Rectal, ONCE, 1 dose, On Fri09/27/22 at 1245, Routine [facility] melatonin (MELATIN) tablet 3 mg 09-27 06:15: 00 09-27 06:04 :00 No 3mg 3 mg, Oral, ONCE, 1 dose, On Fri09/27/22 at 0115, Routine [facility] iopamidol (ISOVUE 370-500 mL) injection 60 mL 09-26 20:50: 00 09-26 20:50 :00 No [id number] 60mL 60 mL, Intravenou s, ONCE, 1 dose, On Jalyn 09/26/22 at 1615, Routine [facility] NaCl 0.9% (NS) bolus infusion 500 mL 09-26 18:45: 00 09-26 21:38 :07 No 500mL at 999 mL/hr, 500 mL, IV Piggyback, ONCE, 1 dose, On Fri09/26/22 at 1345, STAT [facility] lactated ringers IV infusion 500 mL 09-26 17:00: 00 09-26 19:07 :11 No 500mL at 999 mL/hr, 500 mL, Intravenou s, ONCE, 1 dose, On Fri09/26/22 at 1200, STAT [facility] ondansetron (ZOFRAN (PF)) injection 4 mg 09-26 14:00: 00 09-26 13:21 :00 No 4mg 4 mg, Slow IV Push, ONCE, On Fri09/26/22 at 0900, For 1 dose
Do ses of ondansetro n 16 mg and above need to be administer ed via IV piggyback. For Dose >=24mg ECG monitoring is advisable.
[facility] ondansetron (ZOFRAN (PF)) injection 4 mg 09-26 05:15: 00 09-26 05:14 :00 No 4mg 4 mg, Slow IV Push, ONCE, On Fri09/26/22 at 0015, For 1 dose
Do ses of ondansetro n 16 mg and above need to be administer ed via IV piggyback. For Dose >=24mg ECG monitoring is advisable.
[facility] sodium chloride tablet 1 g 09-25 22:00: 00 Yes 1g 1 g, Oral, TID MEALS, First dose on Fri09/25/22 at 1700, Until Discontinu ed, Routine [facility] heparin (porcine) injection 5,000 Units 09-25 19:00: 00 09-25 19:59 :41 No 5000U 5,000 Units, Subcutaneo us, Q8H, First dose on Fri09/25/22 at 1400, Until Discontinu ed, Routine [facility] levothyroxi ne (SYNTHROID) tablet 50 mcg 09-25 11:00: 00 Yes 50ug 50 mcg, Oral, QAM-0600, First dose on Fri09/25/22 at 0600, Until Discontinu ed, Routine [facility] traMADOL (ULTRAM) 50 mg tablet 09-24 14:19: 14 Yes 50mg Take 50 mg by mouth every 6 (six) hours as needed. [facility] VITAMIN B COMPLEX NO.12-NIACI N ORAL 09-24 14:19: 14 Yes Take by mouth. [facility] Fish Oil-Covel-3 Fatty Acids (FISH OIL) 360-1,200 mg Cap 09-24 14:19: 14 Yes Take by mouth. [facility] aspirin 81 mg chewable tablet 09-24 14:19: 14 Yes 81mg Take 81 mg by mouth daily. [facility] Biotin 1 mg Tab 09-24 14:19: 14 Yes Take by mouth. [facility] metFORMIN 500 mg tablet 09-24 14:19: 14 Yes 500mg Take 500 mg by mouth. [facility] pantoprazol e (PROTONIX) EC tablet 20 mg 09-24 14:00: 00 Yes 20mg 20 mg, Oral, DAILY, First dose on Fri09/24/22 at 0900, Until Discontinu ed, Routine [facility] levothyroxi ne 50 mcg tablet 09-24 11:02: 13 Yes 50ug Take 50 mcg by mouth every morning. [facility] iopamidol (ISOVUE 300-100 mL) injection 300 mL 09-24 02:00: 00 09-24 02:00 :00 No [id number] 300mL 300 mL, Intravenou s, ONCE, 1 dose, On Fri09/23/22 at 2100, Routine [facility] FENTanyl PF (SUBLIMAZE (PF)) injection 09-23 21:46: 50 09-23 21:46 :50 No Slow IV Push, PRN, Starting on Fri09/23/22 at 1646, Until Fri09/23/22 at 1646, Routine, Intra-op [facility] lactated ringers IV infusion 1,000 mL 09-23 21:30: 00 09-24 13:06 :53 No 1000mL at 42 mL/hr, 1,000 mL, IV Infusion, CONTINUOUS , Starting on Fri09/23/22 at 1630, Until Fri09/24/22 at 0806, Routine [facility] acetaminoph en (TYLENOL) tablet 650 mg 09-23 21:14: 01 Yes 650mg 650 mg, Oral, Q6HPRN, Starting on Fri09/23/22 at 1614, Until Discontinu ed, Routine, Pain (scale 1-3) [facility] lactated ringers IV infusion 1,000 mL 09-23 20:45: 00 09-23 20:25 :00 No 1000mL at 999 mL/hr, 1,000 mL, Intravenou s, ONCE, 1 dose, On Fri09/23/22 at 1545, STAT [facility] iopamidol (ISOVUE 370-500 mL) injection 100 mL 09-23 16:21: 00 09-23 16:21 :00 No [id number] 100mL 100 mL, Intravenou s, ONCE, 1 dose, On Fri09/23/22 at 1145, Routine [facility] NaCl 0.9% (NS) IV infusion 1,000 mL 09-23 16:15: 00 09-23 18:15 :00 No 1000mL at 999 mL/hr, Intravenou s, ONCE, 1 dose, On Fri09/23/22 at 1115, AGNIESZKA [facility] rivastigmin e 9.5 mg/24 hour patch 08-16 00:00: 00 02-28 00:00 :00 No [id number] 1{patch } Apply 1 Patch to skin in the morning. [facility] cephALEXin 500 mg capsule 07-24 00:00: 00 08-01 04:59 :00 No [id number] 500mg Take 1 capsule by mouth in the morning and 1 capsule in the evening. Do all this for 7 days. [facility] morpHINE (2 mg/mL) injection 2 mg 06-17 17:45: 00 06-17 17:22 :00 No 2mg 2 mg, Slow IV Push, ONCE, 1 dose, On Fri06/17/22 at 1245, STAT [facility] iopamidol (ISOVUE 370-500 mL) injection 80 mL 06-17 16:58: 00 06-17 16:58 :00 No [id number] 80mL 80 mL, Intravenou s, ONCE, 1 dose, On Fri06/17/22 at 1215, Routine [facility] ondansetron (ZOFRAN (PF)) injection 4 mg 06-17 16:45: 00 06-17 17:19 :00 No 4mg 4 mg, Slow IV Push, ONCE, 1 dose, On Fri06/17/22 at 1145, AGNISEZKA [facility] acetaminoph en (TYLENOL) tablet 650 mg 06-17 16:45: 00 06-17 17:15 :00 No 650mg 650 mg, Oral, ONCE, 1 dose, On Fri06/17/22 at 1145, AGNIESZKA [facility] iopamidol (ISOVUE 370-500 mL) injection 100 mL 05-26 17:18: 00 05-26 17:18 :00 No [id number] 100mL 100 mL, Intravenou s, ONCE, 1 dose, On 05/26/21 at 1230, Routine [facility] NaCl 0.9% (NS) bolus infusion 500 mL 05-26 17:00: 00 05-26 18:29 :00 No 500mL at 999 mL/hr, 500 mL, IV Infusion, ONCE, 1 dose, On 05/26/21 at 1200, STAT [facility] acetaminoph en-codeine 300-30 mg tablet -12 00:00: 00 09-30 00:00 :00 No [id number] 1{tbl} Take 1 tablet by mouth every 8 (eight) hours as needed for Pain (scale 4-6). [facility] metFORMIN 500 mg tablet 2017-02 19:19: 58 Yes 500mg Take 500 mg by mouth. [facility] levothyroxi ne 50 mcg tablet 2017-02 19:19: 58 Yes 50ug Take 50 mcg by mouth every morning. [facility] CALCIUM CARBONATE/V ITAMIN D3 (CALCIUM 500 + D, D3, ORAL) 2017-02 19:18: 12 Yes Take by mouth. [facility] aspirin 81 mg chewable tablet 2017-02 19:18: 12 Yes 81mg Take 81 mg by mouth daily. [facility] Biotin 1 mg Tab 2017-02 19:18: 12 Yes Take by mouth. [facility] traMADOL (ULTRAM) 50 mg tablet 2017-02 19:18: 12 Yes 50mg Take 50 mg by mouth every 6 (six) hours as needed. [facility] Fish Oil-Covel-3 Fatty Acids (FISH OIL) 360-1,200 mg Cap 2017-02 19:18: 12 Yes Take by mouth. [facility] Fish Oil-Covel-3 Fatty Acids (FISH OIL) 360-1,200 mg Cap 2017-02 19:18: 12 Yes Take by mouth. [facility] [place] Thyroid 60 mg tablet [place] Thyroid 60 mg tablet 10-01 00:00: 00 No [place] Thyroid 60 mg tablet [facility] Ultram 50 mg tablet Ultram 50 mg tablet 10-01 00:00: 00 No Ultram 50 mg tablet [facility] [place] Thyroid 60 mg tablet [place] Thyroid 60 mg tablet 10-01 00:00: 00 No [place] Thyroid 60 mg tablet [facility] Ultram 50 mg tablet Ultram 50 mg tablet 10-01 00:00: 00 No Ultram 50 mg tablet [facility] hydrocodone 5 mg-acetamin ophen 325 mg tablet hydrocodone 5 mg-acetamin ophen 325 mg tablet No hydrocodon e 5 mg-acetami nophen 325 mg tablet [facility] hydroxychlo roquine 200 mg tablet hydroxychlo roquine 200 mg tablet No hydroxychl oroquine 200 mg tablet [facility] ivermectin 3 mg tablet ivermectin 3 mg tablet No ivermectin 3 mg tablet [facility] losartan 100 mg-hydrochl orothiazide 12.5 mg tablet RX by other MD losartan 100 mg-hydrochl orothiazide 12.5 mg tablet RX by other MD No losartan 100 mg-hydroch lorothiazi de 12.5 mg tablet RX by other MD [facility] losartan 100 mg-hydrochl orothiazide 25 mg tablet losartan 100 mg-hydrochl orothiazide 25 mg tablet No losartan 100 mg-hydroch lorothiazi de 25 mg tablet [facility] methenamine hippurate 1 gram tablet methenamine hippurate 1 gram tablet No methenamin e hippurate 1 gram tablet [facility] metoprolol succinate ER 50 mg tablet,exte nded release 24 hr metoprolol succinate ER 50 mg tablet,exte nded release 24 hr No metoprolol succinate ER 50 mg tablet,ext ended release 24 hr [facility] mupirocin 2 % topical ointment mupirocin 2 % topical ointment No mupirocin 2 % topical ointment [facility] prednisone 10 mg tablet Take 1 tablet every day by oral route. prednisone 10 mg tablet Take 1 tablet every day by oral route. No prednisone 10 mg tablet Take 1 tablet every day by oral route. [facility] rivastigmin e 4.6 mg/24 hour transdermal patch APPLY 1 PATCH TO THE SKIN EVERY MORNING rivastigmin e 4.6 mg/24 hour transdermal patch APPLY 1 PATCH TO THE SKIN EVERY MORNING No rivastigmi ne 4.6 mg/24 hour transderma l patch APPLY 1 PATCH TO THE SKIN EVERY MORNING [facility] Xarelto 15 mg tablet Xarelto 15 mg tablet No Xarelto 15 mg tablet [facility] allopurinol 300 mg tablet allopurinol 300 mg tablet No allopurino l 300 mg tablet [facility] [place] Thyroid 60 mg tablet 1 tablet, 60 MG, Once a day [place] Thyroid 60 mg tablet 1 tablet, 60 MG, Once a day No [place] Thyroid 60 mg tablet 1 tablet, 60 MG, Once a day [facility] aspirin 81 mg tablet 1 tablet, 81 MG, Once a day aspirin 81 mg tablet 1 tablet, 81 MG, Once a day No aspirin 81 mg tablet 1 tablet, 81 MG, Once a [facility] diclofenac sodium 50 mg tablet,avtar yed release diclofenac sodium 50 mg tablet,avtar yed release No diclofenac sodium 50 mg tablet,del ayed release [facility] fluconazole 150 mg tablet Take 1 tablet every day by oral route for 5 days. fluconazole 150 mg tablet Take 1 tablet every day by oral route for 5 days. No 1 Q1D fluconazol e 150 mg tablet Take 1 tablet every day by oral route for 5 days. [facility] losartan 100 mg-hydrochl orothiazide 12.5 mg tablet losartan 100 mg-hydrochl orothiazide 12.5 mg tablet No losartan 100 mg-hydroch lorothiazi de 12.5 mg tablet [facility] losartan 100 mg-hydrochl orothiazide 25 mg tablet losartan 100 mg-hydrochl orothiazide 25 mg tablet No losartan 100 mg-hydroch lorothiazi de 25 mg tablet [facility] metformin ER 500 mg tablet,exte nded release 24 hr metformin ER 500 mg tablet,exte nded release 24 hr No metformin ER 500 mg tablet,ext ended release 24 hr [facility] methenamine hippurate 1 gram tablet TAKE ONE TABLET BY MOUTH TWICE A DAY methenamine hippurate 1 gram tablet TAKE ONE TABLET BY MOUTH TWICE A DAY No methenamin e hippurate 1 gram tablet TAKE ONE TABLET BY MOUTH TWICE A DAY [facility] metoprolol succinate ER 50 mg tablet,exte nded release 24 hr metoprolol succinate ER 50 mg tablet,exte nded release 24 hr No metoprolol succinate ER 50 mg tablet,ext ended release 24 hr [facility] Adult Low Dose Aspirin 81 mg tablet,avtar yed release RX by other Adult Low Dose Aspirin 81 mg tablet,avtar yed release RX by other No Adult Low Dose Aspirin 81 mg tablet,del ayed release RX by other MD [facility] allopurinol 300 mg tablet allopurinol 300 mg tablet No allopurino l 300 mg tablet [facility] mupirocin 2 % topical ointment mupirocin 2 % topical ointment No mupirocin 2 % topical ointment [facility] amiodarone 200 mg tablet amiodarone 200 mg tablet No amiodarone 200 mg tablet [facility] nystatin 100,000 unit/gram topical powder APPLY TO THE AFFECTED AREA(S) BY TOPICAL ROUTE 2 TIMES PER DAY nystatin 100,000 unit/gram topical powder APPLY TO THE AFFECTED AREA(S) BY TOPICAL ROUTE 2 TIMES PER DAY No nystatin 100,000 unit/gram topical powder APPLY TO THE AFFECTED AREA(S) BY TOPICAL ROUTE 2 TIMES PER DAY [facility] azithromyci n 500 mg tablet azithromyci n 500 mg tablet No azithromyc in 500 mg tablet [facility] diclofenac 1 % topical gel APPLY 2 GRAMS TO THE AFFECTED AREA(S) BY TOPICAL ROUTE 4 TIMES PER DAY diclofenac 1 % topical gel APPLY 2 GRAMS TO THE AFFECTED AREA(S) BY TOPICAL ROUTE 4 TIMES PER DAY No diclofenac 1 % topical gel APPLY 2 GRAMS TO THE AFFECTED AREA(S) BY TOPICAL ROUTE 4 TIMES PER DAY [facility] terconazole 0.4 % vaginal cream Insert 1 applicatorf ul every day by vaginal route for 7 days. terconazole 0.4 % vaginal cream Insert 1 applicatorf ul every day by vaginal route for 7 days. No 1applic ator(s) ful Q1D terconazol e 0.4 % vaginal cream Insert 1 applicator ful every day by vaginal route for 7 days. [facility] hydrocodone 5 mg-acetamin ophen 325 mg tablet hydrocodone 5 mg-acetamin ophen 325 mg tablet No hydrocodon e 5 mg-acetami nophen 325 mg tablet [facility] Vitamin B-6 Vitamin B-6 No Vi tamin B-6 [facility] hydroxychlo roquine 200 mg tablet hydroxychlo roquine 200 mg tablet No hydroxychl oroquine 200 mg tablet [facility] ivermectin 3 mg tablet ivermectin 3 mg tablet No ivermectin 3 mg tablet [facility] Vitamin B12 Vitamin B12 No Vi tamin B12 [facility] Vitamin C Vitamin C No Vitamin C [facility] losartan 100 mg-hydrochl orothiazide 12.5 mg tablet RX by other losartan 100 mg-hydrochl orothiazide 12.5 mg tablet RX by other MD No losartan 100 mg-hydroch lorothiazi de 12.5 mg tablet RX by other MD [facility] losartan 100 mg-hydrochl orothiazide 25 mg tablet losartan 100 mg-hydrochl orothiazide 25 mg tablet No losartan 100 mg-hydroch lorothiazi de 25 mg tablet [facility] Vitamin D3 Vitamin D3 No Vitamin D3 [facility] methenamine hippurate 1 gram tablet methenamine hippurate 1 gram tablet No methenamin e hippurate 1 gram tablet [facility] Xarelto 15 mg tablet Xarelto 15 mg tablet No Xarelto 15 mg tablet [facility] prednisone 10 mg tablet Take 1 tablet every day by oral route. prednisone 10 mg tablet Take 1 tablet every day by oral route. No prednisone 10 mg tablet Take 1 tablet every day by oral route. [facility] Xarelto 15 mg tablet Xarelto 15 mg tablet No Xarelto 15 mg tablet [facility] clindamycin 2 % vaginal cream Insert 1 applicatorf ul every day by vaginal route for 5 days. clindamycin 2 % vaginal cream Insert 1 applicatorf ul every day by vaginal route for 5 days. No clindamyci n 2 % vaginal cream Insert 1 applicator ful every day by vaginal route for 5 days. [facility] Adult Low Dose Aspirin 81 mg tablet,avtar yed release RX by other Adult Low Dose Aspirin 81 mg tablet,avtar yed release RX by other MD No Adult Low Dose Aspirin 81 mg tablet,del ayed release RX by other MD [facility] allopurinol 300 mg tablet allopurinol 300 mg tablet No allopurino l 300 mg tablet [facility] estradiol 0.01% (0.1 mg/gram) vaginal cream Insert 0.5 g twice a week by vaginal route at bedtime for 90 days. estradiol 0.01% (0.1 mg/gram) vaginal cream Insert 0.5 g twice a week by vaginal route at bedtime for 90 days. No .5g Q3.5D estradiol 0.01% (0.1 mg/gram) vaginal cream Insert 0.5 g twice a week by vaginal route at bedtime for 90 days. [facility] amiodarone 200 mg tablet amiodarone 200 mg tablet No amiodarone 200 mg tablet [facility] amitriptyli ne 10 mg tablet amitriptyli ne 10 mg tablet No amitriptyl ine 10 mg tablet [facility] azithromyci n 500 mg tablet azithromyci n 500 mg tablet No azithromyc in 500 mg tablet [facility] cephalexin 500 mg capsule TAKE ONE CAPSULE BY MOUTH EVERY MORNING AND 1 CAPSULE EVERY EVENING FOR 7 DAYS cephalexin 500 mg capsule TAKE ONE CAPSULE BY MOUTH EVERY MORNING AND 1 CAPSULE EVERY EVENING FOR 7 DAYS No cephalexin 500 mg capsule TAKE ONE CAPSULE BY MOUTH EVERY MORNING AND 1 CAPSULE EVERY EVENING FOR 7 DAYS [facility] diclofenac 1 % topical gel APPLY 2 GRAMS TO THE AFFECTED AREA(S) BY TOPICAL ROUTE 4 TIMES PER DAY diclofenac 1 % topical gel APPLY 2 GRAMS TO THE AFFECTED AREA(S) BY TOPICAL ROUTE 4 TIMES PER DAY No diclofenac 1 % topical gel APPLY 2 GRAMS TO THE AFFECTED AREA(S) BY TOPICAL ROUTE 4 TIMES PER DAY [facility] diclofenac sodium 50 mg tablet,avtar yed release diclofenac sodium 50 mg tablet,avtar yed release No diclofenac sodium 50 mg tablet,del ayed release [facility] fluconazole 150 mg tablet fluconazole 150 mg tablet No fluconazol e 150 mg tablet [facility] Immunizations Ordered Immunization Name Filled Immunization Name Date Status Comments Source Influenza, adjuvanted, trivalent, PF (FLUAD) 2023-12-08 00:00:00 Completed [facility] Vital Signs Vital Name Observation Time Observation Value Comments S aaronrachael Systolic blood pressure 2024-04-23 15:47:00 120 mm[Hg] [facility] Diastolic blood pressure 2024-04-23 15:47:00 76 mm[Hg] [facility] Heart rate 2024-04-23 15:47:00 76 /min [facility] Body temperature 2024-04-23 15:47:00 36.61 Mena [facility] Respiratory rate 2024-04-23 15:47:00 18 /min [facility] Body weight 2024-04-23 15:47:00 49.896 kg Univ [facility] BMI 2024-04-23 15:47:00 21.48 kg/m2 [facility] Oxygen saturation in Arterial blood by Pulse oximetry 2024-04-23 15:47:00 100 /min [facility] Respiratory rate 2024-04-13 15:56:00 18 /min [facility] Body weight 2024-04-13 15:56:00 49.896 kg Univ [facility] BMI 2024-04-13 15:56:00 21.48 kg/m2 [facility] Oxygen saturation in Arterial blood by Pulse oximetry 2024-04-13 15:56:00 100 /min [facility] Systolic blood pressure 2024-04-13 15:56:00 105 mm[Hg] [facility] Diastolic blood pressure 2024-04-13 15:56:00 58 mm[Hg] [facility] Heart rate 2024-04-13 15:56:00 67 /min [facility] Body temperature 2024-04-13 15:56:00 36.39 Mena [facility] Systolic blood pressure 2024-04-12 16:33:00 115 mm[Hg] [facility] Diastolic blood pressure 2024-04-12 16:33:00 77 mm[Hg] [facility] Heart rate 2024-04-12 16:33:00 60 /min [facility] Body height 2024-04-12 16:33:00 152.4 cm [facility] Body weight 2024-04-12 16:33:00 50.349 kg Univ [facility] BMI 2024-04-12 16:33:00 21.68 kg/m2 [facility] Systolic blood pressure 2024-03-28 20:36:00 138 mm[Hg] [facility] Diastolic blood pressure 2024-03-28 20:36:00 79 mm[Hg] [facility] Heart rate 2024-03-28 20:36:00 77 /min [facility] Body temperature 2024-03-28 20:36:00 36.44 Mena [facility] Respiratory rate 2024-03-28 20:36:00 16 /min [facility] Body height 2024-03-28 20:36:00 144.8 cm [facility] Body weight 2024-03-28 20:36:00 49.896 kg [facility] BMI 2024-03-28 20:36:00 23.80 kg/m2 [facility] Oxygen saturation in Arterial blood by Pulse oximetry 2024-03-28 20:36:00 96 /min [facility] Systolic blood pressure 2024-03-27 16:21:00 128 mm[Hg] [facility] Diastolic blood pressure 2024-03-27 16:21:00 79 mm[Hg] [facility] Heart rate 2024-03-27 16:21:00 93 /min [facility] Body temperature 2024-03-27 16:21:00 36.89 Mena [facility] Respiratory rate 2024-03-27 16:21:00 21 /min [facility] Body height 2024-03-27 16:21:00 144.8 cm [facility] Body weight 2024-03-27 16:21:00 49.896 kg [facility] BMI 2024-03-27 16:21:00 23.80 kg/m2 [facility] Oxygen saturation in Arterial blood by Pulse oximetry 2024-03-27 16:21:00 97 /min [facility] Body Weight 2023-12-15 00:00:00 127 [lb_av] [facility] BP Systolic 2023-12-15 00:00:00 122 mm[Hg] [facility] Diastolic 2023-12-15 00:00:00 63 mm[Hg] [facility] Systolic blood pressure 2023-12-08 15:10:00 137 mm[Hg] [facility] Diastolic blood pressure 2023-12-08 15:10:00 74 mm[Hg] [facility] Heart rate 2023-12-08 15:10:00 68 /min [facility] Respiratory rate 2023-12-08 15:10:00 18 /min [facility] Body height 2023-12-08 15:10:00 147.3 cm [facility] Oxygen saturation in Arterial blood by Pulse oximetry 2023-12-08 15:10:00 99 /min [facility] BP Systolic 2023-09-29 00:00:00 130 mm[Hg] [facility] BP Diastolic 2023-09-29 00:00:00 67 mm[Hg] [facility] Body Weight 2023-09-29 00:00:00 127 [lb_av] [facility] Systolic blood pressure 2023-09-04 19:54:00 119 mm[Hg] [facility] Diastolic blood pressure 2023-09-04 19:54:00 69 mm[Hg] [facility] Heart rate 2023-09-04 19:54:00 79 /min [facility] Body temperature 2023-09-04 19:54:00 36.11 Mena [facility] Respiratory rate 2023-09-04 19:54:00 18 /min [facility] Body weight 2023-09-04 19:54:00 58.06 kg [facility] BMI 2023-09-04 19:54:00 26.75 kg/m2 [facility] Oxygen saturation in Arterial blood by Pulse oximetry 2023-09-04 19:54:00 100 /min [facility] Height 2023-03-25 00:00:00 58 [in_i] [facility] Body Weight 2023-03-25 00:00:00 122 [lb_av] [facility] BMI (Body Mass Index) 2023-03-25 00:00:00 25.5 kg/m2 [facility] Systolic blood pressure 2022-12-16 19:45:00 123 mm[Hg] [facility] Diastolic blood pressure 2022-12-16 19:45:00 75 mm[Hg] [facility] Heart rate 2022-12-16 19:45:00 64 /min [facility] Respiratory rate 2022-12-16 19:45:00 18 /min [facility] Body height 2022-12-16 19:45:00 147.3 cm [facility] Body weight 2022-12-16 19:45:00 55.339 kg [facility] BMI 2022-12-16 19:45:00 25.50 kg/m2 [facility] Oxygen saturation in Arterial blood by Pulse oximetry 2022-12-16 19:45:00 99 /min [facility] Systolic blood pressure 2022-09-30 16:57:00 127 mm[Hg] [facility] Diastolic blood pressure 2022-09-30 16:57:00 68 mm[Hg] [facility] Heart rate 2022-09-30 16:57:00 69 /min [facility] Body temperature 2022-09-30 16:57:00 36.56 Mena [facility] Respiratory rate 2022-09-30 16:57:00 18 /min [facility] Oxygen saturation in Arterial blood by Pulse oximetry 2022-09-30 16:57:00 95 /min [facility] Body height 2022-09-24 01:08:00 147.3 cm [facility] Body weight 2022-09-24 01:08:00 56 kg [facility] BMI 2022-09-24 01:08:00 25.80 kg/m2 [facility] Systolic blood pressure 2022-09-23 18:15:00 104 mm[Hg] [facility] Diastolic blood pressure 2022-09-23 18:15:00 80 mm[Hg] [facility] Heart rate 2022-09-23 18:15:00 81 /min [facility] Body temperature 2022-09-23 18:15:00 36.11 Mena [facility] Respiratory rate 2022-09-23 18:15:00 14 /min [facility] Oxygen saturation in Arterial blood by Pulse oximetry 2022-09-23 18:15:00 96 /min [facility] Body height 2022-09-23 16:06:00 152.4 cm [facility] Body weight 2022-09-23 16:06:00 53.978 kg [facility] BMI 2022-09-23 16:06:00 23.24 kg/m2 [facility] Systolic blood pressure 2022-08-16 15:02:00 108 mm[Hg] [facility] Diastolic blood pressure 2022-08-16 15:02:00 70 mm[Hg] [facility] Heart rate 2022-08-16 15:02:00 74 /min [facility] Body height 2022-08-16 15:02:00 147.3 cm [facility] Body weight 2022-08-16 15:02:00 58.968 kg [facility] BMI 2022-08-16 15:02:00 27.17 kg/m2 [facility] Oxygen saturation in Arterial blood by Pulse oximetry 2022-08-16 15:02:00 98 /min [facility] Systolic blood pressure 2022-07-24 14:25:00 105 mm[Hg] [facility] Diastolic blood pressure 2022-07-24 14:25:00 74 mm[Hg] [facility] Heart rate 2022-07-24 14:25:00 87 /min [facility] Body temperature 2022-07-24 14:25:00 36.56 Mena [facility] Respiratory rate 2022-07-24 14:25:00 16 /min [facility] Body height 2022-07-24 14:25:00 147.3 cm [facility] Body weight 2022-07-24 14:25:00 54.545 kg [facility] BMI 2022-07-24 14:25:00 25.13 kg/m2 [facility] Oxygen saturation in Arterial blood by Pulse oximetry 2022-07-24 14:25:00 97 /min [facility] Systolic blood pressure 2022-07-04 22:10:00 145 mm[Hg] [facility] Diastolic blood pressure 2022-07-04 22:10:00 80 mm[Hg] [facility] Respiratory rate 2022-07-04 22:10:00 14 /min [facility] Oxygen saturation in Arterial blood by Pulse oximetry 2022-07-04 22:10:00 96 /min [facility] Heart rate 2022-07-04 20:53:00 73 /min [facility] Body temperature 2022-07-04 20:53:00 35.83 Mena [facility] Body height 2022-07-04 20:53:00 157.5 cm [facility] Body weight 2022-07-04 20:53:00 55.339 kg [facility] BMI 2022-07-04 20:53:00 22.31 kg/m2 [facility] Height 2022-07-02 00:00:00 57 [in_i] [facility] BMI (Body Mass Index) 2022-07-02 00:00:00 25.8 kg/m2 [facility] Body Weight 2022-07-02 00:00:00 119 [lb_av] [facility] Systolic blood pressure 2022-06-17 20:00:00 153 mm[Hg] [facility] Diastolic blood pressure 2022-06-17 20:00:00 79 mm[Hg] [facility] Heart rate 2022-06-17 20:00:00 74 /min [facility] Respiratory rate 2022-06-17 20:00:00 15 /min [facility] Oxygen saturation in Arterial blood by Pulse oximetry 2022-06-17 20:00:00 97 /min [facility] Body temperature 2022-06-17 15:30:00 36.44 Mena [facility] Body height 2022-06-17 15:30:00 152.4 cm [facility] Body weight 2022-06-17 15:30:00 55.339 kg [facility] BMI 2022-06-17 15:30:00 23.83 kg/m2 [facility] Systolic blood pressure 2021-12-26 00:29:00 148 mm[Hg] [facility] Diastolic blood pressure 2021-12-26 00:29:00 65 mm[Hg] [facility] Heart rate 2021-12-26 00:29:00 66 /min [facility] Respiratory rate 2021-12-26 00:29:00 16 /min [facility] Oxygen saturation in Arterial blood by Pulse oximetry 2021-12-26 00:29:00 97 /min [facility] Body temperature 2021-12-25 22:55:00 36.28 Mena [facility] Body weight 2021-12-25 22:55:00 56.7 kg [facility] BMI 2021-12-25 22:55:00 22.86 kg/m2 [facility] Systolic blood pressure 2021-05-26 18:17:00 154 mm[Hg] [facility] Diastolic blood pressure 2021-05-26 18:17:00 72 mm[Hg] [facility] Respiratory rate 2021-05-26 18:17:00 14 /min [facility] Oxygen saturation in Arterial blood by Pulse oximetry 2021-05-26 18:17:00 98 /min [facility] Heart rate 2021-05-26 17:39:00 72 /min [facility] Body temperature 2021-05-26 16:33:00 36.78 Mena [facility] Body weight 2021-05-26 16:33:00 57.153 kg [facility] BMI 2021-05-26 16:33:00 23.05 kg/m2 [facility] Systolic blood pressure 2022-09-30 16:57:00 127 mm[Hg] [facility] Diastolic blood pressure 2022-09-30 16:57:00 68 mm[Hg] [facility] Heart rate 2022-09-30 16:57:00 69 /min [facility] Body temperature 2022-09-30 16:57:00 36.56 Mena [facility] Respiratory rate 2022-09-30 16:57:00 18 /min [facility] Oxygen saturation in Arterial blood by Pulse oximetry 2022-09-30 16:57:00 95 /min [facility] Systolic blood pressure 2022-09-25 15:00:00 124 mm[Hg] [facility] Diastolic blood pressure 2022-09-25 15:00:00 56 mm[Hg] [facility] Heart rate 2022-09-25 15:00:00 63 /min [facility] Respiratory rate 2022-09-25 15:00:00 11 /min [facility] Body temperature 2022-09-25 13:00:00 36.06 Mena [facility] Oxygen saturation in Arterial blood by Pulse oximetry 2022-09-25 13:00:00 91 /min [facility] Body height 2022-09-24 01:08:00 147.3 cm [facility] Body weight 2022-09-24 01:08:00 56 kg [facility] BMI 2022-09-24 01:08:00 25.80 kg/m2 [facility] Procedures Procedure Date / Time Performed Performing Clinician Source POCT URINALYSIS 2024-04-13 00:00:00 Alisha Escalera [facility] URINE CULTURE 2024-03-28 20:55:00 Alisha Escalera [facility] POCT URINALYSIS 2024-03-28 20:44:00 Alisha Escalera [facility] FLU VACC([id number]),65+YR,0.5 ML,IM,ADJUVANTED,TIV(FLUAD ) 2023-12-08 15:24:52 Mike Walden [facility] POCT URINALYSIS 2023-09-04 00:00:00 Kavya Tubbs [facility] RADEX PELVIS 1/2 VIEWS 2023-03-25 00:00:00 [facility] RADEX SPI LUMBOSAC 2/3 VIEWS 2023-03-25 00:00:00 [facility] XR HIPS 2 VW LEFT 2023-03-17 18:40:30 Requisition, Pap er [facility] XR PELVIS <3 VW 2023-03-17 18:40:19 Requisition, Paper [facility] PATIENT QUESTIONNAIRE 2022-10-08 05:01:00 Doctor Unassigned, [place] [facility] BASIC METABOLIC PANEL (NA, K, CL, CO2, GLUCOSE, BUN, CREATININE, CA) 2022-09-30 10:43:00 Raymundo Umana [facility] CBC WITH DIFF 2022-09-30 10:43:00 Jm Peraltad io, [facility] MAGNESIUM 2022-09-30 10:43:00 Jm menendez, [facility] PHOSPHORUS 2022-09-30 10:43:00 Jm menendez, [facility] PHOSPHORUS 2022-09-30 10:43:00 Jmtimmy Peraltad io, [facility] MAGNESIUM 2022-09-30 10:43:00 Jm Kathrynd io, [facility] BASIC METABOLIC PANEL (NA, K, CL, CO2, GLUCOSE, BUN, CREATININE, CA) 2022-09-30 10:43:[address] [facility] CBC WITH DIFF 2022-09-30 10:43:00 Jm menendez, [facility] PHOSPHORUS 2022-09-29 09:54:00 [facility] MAGNESIUM 2022-09-29 09:54:00 [facility] BASIC METABOLIC PANEL (NA, K, CL, CO2, GLUCOSE, BUN, CREATININE, CA) 2022-09-29 09:54:00 [facility]y [facility] CBC WITH DIFF 2022-09-29 09:54:00 [facility] PHOSPHORUS 2022-09-29 09:54:00 [facility] MAGNESIUM 2022-09-29 09:54:00 [facility] BASIC METABOLIC PANEL (NA, K, CL, CO2, GLUCOSE, BUN, CREATININE, CA) 2022-09-29 09:54:00 [facility] CBC WITH DIFF 2022-09-29 09:54:00 [facility] IR EMBOLIZATION ARTERIAL OR VENOUS HEMORRHAGE OR LYMPHATIC EXTRAVASATION 2022-09-29 01:05:00 [facility] IR EMBOLIZATION ARTERIAL OR VENOUS HEMORRHAGE OR LYMPHATIC EXTRAVASATION 2022-09-29 01:05:00 [facility] PREPARE PACKED RBC 2022-09-28 20:15:41 Adri [facility] PREPARE PACKED RBC 2022-09-28 20:15:41 [facility] HB ABO GROUPING 2022-09-28 18:36[facility] (NA, K, CL, CO2, GLUCOSE, BUN, CREATININE, CA) 2022-09-28 18:36:00 Adri [facility] PROTHROMBIN TIME / INR 2022-09-28 18:36:00 Surekha Rush [facility] BASIC METABOLIC PANEL (NA, K, CL, CO2, GLUCOSE, BUN, CREATININE, CA) 2022-09-28 18:36:00 Adri [facility] PROTHROMBIN TIME / INR 2022-09-28 18:36:00 Surekha Rush [facility] HB ABO GROUPING 2022-09-28 18:36:00 Yovany Rush [facility] PHOSPHORUS 2022-09-28 11:19:00 [facility] MAGNESIUM 2022-09-28 11:19:00 [facility] BASIC METABOLIC PANEL (NA, K, CL, CO2, GLUCOSE, BUN, CREATININE, CA) 2022-09-28 11:19:00 [facility]y [facility] CBC WITH DIFF 2022-09-28 11:19:00 [facility] PHOSPHORUS 2022-09-28 11:19:00 [facility] MAGNESIUM 2022-09-28 11:19:00 [facility] BASIC METABOLIC PANEL (NA, K, CL, CO2, GLUCOSE, BUN, CREATININE, CA) 2022-09-28 11:19:00 [facility] CBC WITH DIFF 2022-09-28 11:19:00 [facility] POCT GLUCOSE (AUTOMATED) 2022-09-27 13:21:00 Joseph Sunshine [facility] POCT GLUCOSE (AUTOMATED) 2022-09-27 13:21:00 Joseph Sunshine [facility] PHOSPHORUS 2022-09-27 13:20:00 [facility] MAGNESIUM 2022-09-27 13:20:00 [facility] BASIC METABOLIC PANEL (NA, K, CL, CO2, GLUCOSE, BUN, CREATININE, CA) 2022-09-27 13:20:00 [facility] CBC WITH DIFF 2022-09-27 13:20:00 [facility] PHOSPHORUS 2022-09-27 13:20:00 [facility] MAGNESIUM 2022-09-27 13:20:00 [facility] BASIC METABOLIC PANEL (NA, K, CL, CO2, GLUCOSE, BUN, CREATININE, CA) 2022-09-27 13:20:00 [facility] CBC WITH DIFF 2022-09-27 13:20:00 [facility] SODIUM URINE 2022-09-27 09:50:00 Gabrielle Pollack [facility] SODIUM URINE 2022-09-27 09:50:00 Gabrielle Pollack [facility] CT ABDOMEN PELVIS W CONTRAST 2022-09-26 21:00:50 Adri [facility] CT ABDOMEN PELVIS W CONTRAST 2022-09-26 21:00:50 Adri, Feras [facility] XR KUB 2022-09-26 17:20:00 [facility] X[facility] KUB 2022-09-26 17:20:00 Yovany Rush [facility] POCT GLUCOSE (AUTOMATED) 2022-09-26 13:23:00 Joseph Sunshine [facility] POCT GLUCOSE (AUTOMATED) 2022-09-26 13:23:00 Joseph Sunshine [facility] PHOSPHORUS 2022-09-26 08:44:00 [facility] MAGNESIUM 2022-09-26 08:44:00 [facility] BASIC METABOLIC PANEL (NA, K, CL, CO2, GLUCOSE, BUN, CREATININE, CA) 2022-09-26 08:44:00 [facility] CBC WITH DIFF 2022-09-26 08:44:00 [facility] PHOSPHORUS 2022-09-26 08:44:00 [facility] MAGNESIUM 2022-09-26 08:44:00 vEie [facility] BASIC METABOLIC PANEL (NA, K, CL, CO2, GLUCOSE, BUN, CREATININE, CA) 2022-09-26 08:44:00 [facility] CBC WITH DIFF 2022-09-26 08:44:00 [facility] CBC WITHOUT DIFF 2022-09-26 01:46:00 JenniferGeorginaWendy U [facility] CBC WITHOUT DIFF 2022-09-26 01:46:00 JenniferBriena U [facility] URINALYSIS 2022-09-25 15:20:00 [facility] URINE CULTURE 2022-09-25 15:20:00 Yovany Rush [facility] URINALYSIS 2022-09-25 15:20:00 [facility] URINE CULTURE 2022-09-25 15:20:00 Adri, Feras [facility] CBC WITHOUT DIFF 2022-09-25 14:30:00 JenniferWendy johnson [facility] FIBRINOGEN 2022-09-25 14:30:00 Adri, [facility] ACTIVATED PARTIAL THRMPLAS SANIA 2022-09-25 14:30:00 Adri, [facility] PROTHROMBIN TIME / INR 2022-09-25 14:30:00 Adri, [facility] CBC WITHOUT DIFF 2022-09-25 14:30:00 JenniferWendy [facility] PROTHROMBIN TIME / INR 2022-09-25 14:30:00 Adri, Surekha [facility] ACTIVATED PARTIAL THRMPLAS SANIA 2022-09-25 14:30:00 Adri, [facility] FIBRINOGEN 2022-09-25 14:30:00 Adri, [facility] PHOSPHORUS 2022-09-25 09:24:00 [facility] MAGNESIUM 2022-09-25 09:24:00 [facility] BASIC METABOLIC PANEL (NA, K, CL, CO2, GLUCOSE, BUN, CREATININE, CA) 2022-09-25 09:24:00 [facility] CBC WITH DIFF 2022-09-25 09:24:00 [facility] PHOSPHORUS 2022-09-25 09:24:00 [facility] MAGNESIUM 2022-09-25 09:24:00 [facility] BASIC METABOLIC PANEL (NA, K, CL, CO2, GLUCOSE, BUN, CREATININE, CA) 2022-09-25 09:24:00 [facility] CBC WITH DIFF 2022-09-25 09:24:00 [facility] XR KNEE <3 VW RIGHT 2022-09-25 08:11:00 Ellis Rogers [facility] XR KNEE <3 VW RIGHT 2022-09-25 08:11:00 Ellis Rogers [facility] CBC WITHOUT DIFF 2022-09-25 01:05:00 Jennifer Wendy Avila [facility] CBC WITHOUT DIFF 2022-09-25 01:05:00 Wendy Rodriguez [facility] CBC WITHOUT DIFF 2022-09-24 14:45:00 Juan David finnegan [facility] CBC WITHOUT DIFF 2022-09-24 14:45:00 Juan David finnegan [facility] PHOSPHORUS 2022-09-24 10:14:00 [facility] MAGNESIUM 2022-09-24 10:14:00 [facility] BASIC METABOLIC PANEL (NA, K, CL, CO2, GLUCOSE, BUN, CREATININE, CA) 2022-09-24 10:14:00 [facility] CBC WITH DIFF 2022-09-24 10:14:00 [facility] PHOSPHORUS 2022-09-24 10:14:00 [facility] MAGNESIUM 2022-09-24 10:14:00 [facility] BASIC METABOLIC PANEL (NA, K, CL, CO2, GLUCOSE, BUN, CREATININE, CA) 2022-09-24 10:14:00 [facility] CBC WITH DIFF 2022-09-24 10:14:00 [facility] CBC WITHOUT DIFF 2022-09-24 06:37:00 Juan David finnegan [facility] CBC WITHOUT DIFF 2022-09-24 06:37:00 Juan David finnegan [facility] CBC WITHOUT DIFF 2022-09-24 03:19:00 Juan David finnegan [facility] CBC WITHOUT DIFF 2022-09-24 03:19:00 Juan David finnegan [facility] XR HIP 1 VW RIGHT 2022-09-24 01:22:00 Jeri Bond [facility] XR FEMUR 2 VW RIGHT 2022-09-24 01:22:00 Jeri Bond [facility] XR FEMUR 2 VW RIGHT 2022-09-24 01:22:00 Jeri Bond [facility] XR HIP 1 VW RIGHT 2022-09-24 01:22:00 Jeri Bond [facility] IR EMBOLIZATION ARTERIAL OR VENOUS HEMORRHAGE OR LYMPHATIC EXTRAVASATION 2022-09-24 00:05:48 Juan David Adhikari [facility] IR EMBOLIZATION ARTERIAL OR VENOUS HEMORRHAGE OR LYMPHATIC EXTRAVASATION 2022-09-24 00:05:48 Juan David Adhikari [facility] CBC WITHOUT DIFF 2022-09-23 19:55:00 Juan David finnegan [facility] COMP. METABOLIC PANEL ([id number]) 2022-09-23 19:55:00 Jong [facility] LIPASE 2022-09-23 19:55:00 Jong [facility] PROTHROMBIN TIME / INR 2022-09-23 19:55:00 Hakan Sunshine [facility] ACTIVATED PARTIAL THRMPLAS SANIA 2022-09-23 19:55:00 Jong [facility] HB ABO GROUPING 2022-09-23 19:55:00 Beau Sunshine [facility] LIPASE 2022-09-23 19:55:00 Beau Sunshine [facility] COMP. METABOLIC PANEL ([id number]) 2022-09-23 19:55:00 Jong [facility] CBC WITHOUT DIFF 2022-09-23 19:55:00 Juan David finnegan [facility] PROTHROMBIN TIME / INR 2022-09-23 19:55:00 Hakan Sunshine [facility] ACTIVATED PARTIAL THRMPLAS SANIA 2022-09-23 19:55:00 Jong [facility] HB ABO GROUPING 2022-09-23 19:55:00 Beau Sunshine [facility] ABORH CONFIRMATION (LAB ONLY) 2022-09-23 17:01:00 Abe Carl [facility] ABORH CONFIRMATION (LAB ONLY) 2022-09-23 17:01:00 Carl, [facility] CT TRAUMA HEAD WO CONTRAST 2022-09-23 16:32:30 Singer [facility] CT TRAUMA THORAX W CONTRAST 2022-09-23 16:32:30 Singer [facility] CT TRAUMA CERVICAL SPINE WO CONTRAST 2022-09-23 16:32:30 Singer [facility] CT TRAUMA ABDOMEN PELVIS W CONTRAST 2022-09-23 16:32:30 Carl, [facility] CT TRAUMA HEAD WO CONTRAST 2022-09-23 16:32:30 Carl, [facility] CT TRAUMA CERVICAL SPINE WO CONTRAST 2022-09-23 16:32:30 Carl [facility] CT TRAUMA ABDOMEN PELVIS W CONTRAST 2022-09-23 16:32:30 Singer [facility] CT TRAUMA THORAX W CONTRAST 2022-09-23 16:32:30 Singer [facility] XR CHEST 1 VW 2022-09-23 16:29:36 Singer [facility] XR CHEST 1 VW 2022-09-23 16:29:36 Singer [facility] LIPASE 2022-09-23 16:10:00 Singer Abe [facility] COMP. METABOLIC PANEL ([id number]) 2022-09-23 16:10:00 Singer [facility] CBC WITHOUT DIFF 2022-09-23 16:10:00 Abe Carl [facility] PROTHROMBIN TIME / INR 2022-09-23 16:10:00 Jaison Carl [facility] ACTIVATED PARTIAL THRMPLAS SANIA 2022-09-23 16:10:00 Singer [facility] HB ABO GROUPING 2022-09-23 16:10:00 Abe Carl [facility] CBC WITHOUT DIFF 2022-09-23 16:10:00 Abe Carl [facility] COMP. METABOLIC PANEL ([id number]) 2022-09-23 16:10:00 Carl, Abe [facility] LIPASE 2022-09-23 16:10:00 Abe Carl [facility] PROTHROMBIN TIME / INR 2022-09-23 16:10:00 Jaison alberts [facility] ACTIVATED PARTIAL THRMPLAS SANIA 2022-09-23 16:10:00 Abe Carl [facility] HB ABO GROUPING 2022-09-23 16:10:00 [facility]RE[facility]IZATIONS 2022-09-23 05:01:00 Doctor Unassigned, [employer] [facility] EMERGENCY DEPARTMENT DOCUMENTS 2022-09-23 05:01:00 Doctor Unassigned, [employer] [facility] EMERGENCY DEPARTMENT DOCUMENTS 2022-09-23 05:01:00 Doctor Unassigned, [employer] [facility] EMERGENCY SERVICES AGREEMENTS AND AUTHORIZATIONS 2022-09-23 05:01:00 Doctor Unassigned, [employer] [facility] NOTICE OF BILLING PRACTICES FOR MEDICARE PATIENTS 2022-08-16 14:51:41 Doctor Unassigned, [employer] [facility] NOTICE OF BILLING PRACTICES FOR MEDICARE PATIENTS 2022-08-16 14:51:41 Doctor Unassigned, [employer] [facility] POCT URINALYSIS 2022-07-24 14:28:00 Alisha Escalera [facility] POCT URINALYSIS 2022-07-24 14:28:00 Alisha Escalera [facility] URINE CULTURE 2022-07-24 14:27:00 Alisha Escalera [facility] PATIENT FINANCIAL POLICY 2022-07-24 14:04:26 Doctor Unassigned, [employer] [facility] NO SHOW OR MISSED APPOINTMENT POLICY ACKNOWLEDGEMENT 2022-07-24 14:04:01 Doctor Unassigned, [employer] [facility] ASSIGNMENT OF BENEFITS 2022-07-24 14:03:34 Docto r Unassigned, [employer] [facility] CONSENT/REFUSAL FOR DIAGNOSIS AND TREATMENT 2022-07-24 14:03:10 Doctor Unassigned, [employer] [facility] CONSENT/REFUSAL FOR DIAGNOSIS AND TREATMENT 2022-07-24 14:03:10 Doctor Unassigned, [employer] [facility] CT CERVICAL SPINE WO CONTRAST 2022-07-04 22:07:17 Abe Carl [facility] CT HEAD WO CONTRAST 2022-07-04 22:07:17 Cici Carl [facility] CT HEAD WO CONTRAST 2022-07-04 22:07:17 Cici Carl [facility] CT CERVICAL SPINE WO CONTRAST 2022-07-04 22:07:17 Abe Carl [facility] EMERGENCY SERVICES AGREEMENTS AND AUTHORIZATIONS 2022-07-04 05:01:00 Doctor Unassigned, [employer] [facility] EMERGENCY DEPARTMENT DOCUMENTS 2022-07-04 05:01:00 Doctor Unassigned, [employer] [facility] XR, thoracic spine, 2 view 2022-07-02 00:00:00 [facility] DEXA, axial skeleton + vertebral fracture assessment 2022-07-02 00:00:00 [facility] HB ECG ROUTINE & RHYTHM STRIP 2022-06-17 17:36:30 Renny Werner [facility] TROPONIN I 2022-06-17 17:13:00 Renny Werner [facility] COMP. METABOLIC PANEL ([id number]) 2022-06-17 17:13:00 Renny Werner [facility] CBC WITH DIFF 2022-06-17 17:13:00 Renny Werner [facility] CT TRAUMA THORAX W CONTRAST 2022-06-17 17:09:48 Renny Werner [facility] CT TRAUMA ABDOMEN PELVIS W CONTRAST 2022-06-17 17:09:48 Renny Werner [facility] CT TRAUMA HEAD WO CONTRAST 2022-06-17 17:08:39 Renny Werner [facility] CT TRAUMA CERVICAL SPINE WO CONTRAST 2022-06-17 17:08:39 Renny Werner [facility] CT TRAUMA THORACIC SPINE WO CONTRAST 2022-06-17 17:08:39 Renny Werner [facility] CT TRAUMA LUMBAR SPINE WO CONTRAST 2022-06-17 17:08:39 Renny Werner [facility] CT TRAUMA HEAD WO CONTRAST 2021-12-25 23:36:02 Libia Bronson [facility] CT TRAUMA CERVICAL SPINE WO CONTRAST 2021-12-25 23:36:02 Libia Nguyen [facility] URINALYSIS 2021-05-26 17:31:00 Abe Carl [facility] CT CERVICAL SPINE WO CONTRAST 2021-05-26 17:22:31 Abe Carl [facility] CT HEAD WO CONTRAST 2021-05-26 17:22:31 Cici Carl [facility] CT ABDOMEN PELVIS W CONTRAST 2021-05-26 17:22:00 Singer [facility] COMP. METABOLIC PANEL ([id number]) 2021-05-26 16:59:00 Singer [facility] CBC WITH DIFF 2021-05-26 16:59:00 Singer [facility] LACTIC ACID WHOLE BLOOD 2021-05-26 16:59:00 Singer [facility] Tubal Ligation 1973-05-25 00:00:00 [facility] Hyste[facility] Knee Replacement [facility] Pacemaker/Defibrillator [facility] Encounters Start Date/Time End Date/Time Encounter Type Admission Type Attending [facility] Care Facility Care Department Encounter ID Source 2024-05-08 12:40:00 2024-05-08 12:40:00 Outpatient R JANETTE MUÑOZ SHAHNAZ [facility] [id number] [facility] 2024-04-23 09:30:00 2024-04-23 10:10:50 Outpatient R JENNIFER HORTA [facility] [id number] [facility] 2024-04-23 09:30:00 2024-04-23 10:10:50 Urgent Care Jennifer Horta Unknown, [facility] 1.2.840.114 350.1.13.10 4.2.7.2.686 [id number] [facility] 2024-04-15 00:00:00 2024-04-15 16:51:08 Telephone Mike Walden [facility] DENZEL GARCIA?BRIAN [facility] 1..840.114 350.1.13.10 4.2.7.2.686 [id number] [facility] 2024-04-13 09:20:00 2024-04-13 09:40:00 Urgent Care HortaJennifer Unknown, Attending [facility] RADHA?BRIAN [facility] 1.840.114 350.1.13.10 4.2.7.2.686 [id number] [facility] 2024-04-13 09:20:00 2024-04-13 09:20:00 Outpatient R JENNIFER HORTA [facility] [id number] [facility] 2024-04-12 10:40:00 2024-04-12 11:19:28 Office Visit Mike Walden [facility] 1.840.114 350.1.13.10 4.2.7.2.686 [id number] [facility] 2024-04-12 10:40:00 2024-04-12 11:19:28 Outpatient R MIKE WALDEN [facility] [id number] [facility] 2024-03-31 00:00:00 2024-03-31 18:44:59 Telephone Jw Alisha [facility] 1..840.114 350.1.13.10 4.2.7.2.686 [id number] [facility] 2024-03-30 00:00:00 2024-03-30 10:52:21 Telephone Jw Alisha [facility] 1..840.114 350.1.13.10 4.2.7.2.686 [id number] [facility] 2024-03-29 00:00:00 2024-03-29 10:04:51 Telephone Mike Walden Chidi [facility] 1.2.840.114 350.1.13.10 4.2.7.2.686 [id number] [facility] 2024-03-28 14:20:00 2024-03-28 14:57:40 Outpatient R ALISHA ESCALERA [facility] [id number] [facility] 2024-03-28 14:20:00 2024-03-28 14:57:40 Urgent Care Alisha Escalera Unknown, Attending [facility] 1.2.840.114 350.1.13.10 4.2.7.2.686 [id number] [facility] 2024-03-27 10:40:00 2024-03-27 11:07:19 Outpatient R KAVYA TUBBS [facility] [id number] [facility] 2024-03-27 10:40:00 2024-03-27 11:00:00 Urgent Care Kavya Tubbs Unknown, Attending [facility] 1.2.840.114 350.1.13.10 4.2.7.2.686 [id number] [facility] 2023-12-15 00:00:00 2023-12-15 00:00:00 CHARANJIT Zhang: [address], [address], [place] [address] , Ph. [phone] [facility] _[facility] Office* [id number] [facility] 2023-12-08 15:20:00 2023-12-08 15:20:00 Office Visit Yahir, Mike Chidi [facility] 1..840.114 350.1.13.10 4.2.7.2.686 [id number] [facility] 2023-12-08 15:20:00 2023-12-08 13:53:31 Outpatient R MIKE WALDEN [facility] [id number] [facility] 2023-09-29 00:00:00 2023-09-29 00:00:00 CHARANJIT Zhang: [address], [address], [place] [address] , Ph. [phone] [facility] _[place] [facility]* [id number] [facility] 2023-09-04 15:00:00 2023-09-04 15:09:28 Outpatient R HILDA ALARCON [facility] [id number] [facility] 2023-09-04 15:00:00 2023-09-04 15:09:28 Urgent Care Hilda Alarcon Unknown, Attending [facility] 1..840.114 350.1.13.10 4.2.7.2.686 [id number] [facility] 2023-03-25 00:00:00 2023-03-25 00:00:00 Naz Isidro MD: [address] [place] [address] , Ph. [phone] [facility] - [facility] [place] - [facility] [id number] [facility] 2023-03-17 12:20:09 2023-03-17 23:59:00 Hospital Encounter Radiology [facility] 1..840.114 350.1.13.10 4.2.7.2.686 [id number] [facility] 2023-03-17 12:17:05 2023-03-17 12:19:00 Outpatient R RADIOLOGY [facility] [id number] [facility] 2023-03-17 12:17:05 2023-03-17 12:19:00 Hospital Encounter Radiology [facility] 1.114 350.1.13.10 4.2.7.2.686 [id number] [facility] 2023-02-26 00:00:00 2023-02-26 00:00:[address] [facility] [address] 1.84.114 350.1.13.10 4.2.7.2.686 [id number] [facility] 2023-02-19 00:00:00 2023-02-19 00:00:00 Outpatient [facility] _Fisher_H [facility] [id number] [facility] 2022-12-16 15:00:00 2022-12-16 15:34:04 Outpatient R MIKE WALDEN [facility] [id number] [facility] 2022-12-16 15:00:00 2022-12-16 15:34:04 Office Visit Yahir Mike Murillo [facility] RADHA?[facility]RIAN [facility] 1.84.114 350.1.13.10 4.2.7.2.686 [id number] [facility] 2022-10-08 00:00:00 2022-10-08 00:00:00 Orders Only Doctor Unassigned, [place] [facility] 1.114 350.1.13.10 4.2.7.2.686 [id number] [facility] 2022-10-04 00:00:00 2022-10-04 00:00:00 Telephone Yahir Mike [facility] RADHA?[facility] 1.2.840.114 350.1.13.10 4.2.7.2.686 [id number] [facility] 2022-10-01 00:00:00 2022-10-01 00:00:00 Transition of Care Cassandra Cooper 1.2.840.114 350.1.13.10 4.2.7.2.686 [id number] [facility] 2022-09-23 14:33:00 2022-09-30 15:30:00 Hospital [facility] 1.2.840.114 350.1.13.10 4.2.7.2.686 [id number] [facility] 2022-09-25 00:00:00 2022-09-25 00:00:00 Mike Maloney 1.2.840.1 22911.1.1 3.104.2.7 .3.078302 .8 [id number] [facility] 2022-09-23 10:58:00 2022-09-23 13:20:00 Emergency X [facility] ERT [id number] [facility] 2022-09-23 10:58:00 2022-09-23 13:20:00 Emergency X ABE CARL [facility] ERT [id number] [facility] 2022-09-23 10:58:00 2022-09-23 13:20:00 Emergency Abe Carl 1.2.840.1 88464.1.1 3.104.2.7 .3.181916 .8 [id number] [facility] 2022-09-23 00:00:00 2022-09-23 00:00:00 Travel 1.2.840.1 70006.1.1 3.104.2.7 .3.152204 .8 1.2.840.114 350.1.13.10 4.2.7.3.698 [id number] [facility] 2022-08-24 00:00:00 2022-08-24 00:00:00 Outpatient [facility] _Fisher_[facility] [id number] [facility] 2022-08-16 10:20:00 2022-08-16 11:15:44 Outpatient MIKE DODD [facility] [id number] [facility] 2022-08-16 10:20:00 2022-08-16 11:15:44 Office Visit Mike Walden 1.2.840.1 00513.1.1 3.104.2.7 .3.076957 .8 [id number] [facility] 2022-08-16 00:00:00 2022-08-16 00:00:00 Orders Only Doctor Unassigned, [employer] 1.2.840.1 31775.1.1 3.104.2.7 .3.942778 .8 [id number] [facility] 2022-08-16 00:00:00 2022-08-16 00:00:00 Telephone Mike Walden Gene 1.2.840.1 41251.1.1 3.104.2.7 .3.435100 .8 [id number] [facility] 2022-08-16 00:00:00 2022-08-16 00:00:00 Travel 1.2.840.1 58880.1.1 3.104.2.7 .3.241297 .8 1.2.840.114 350.1.13.10 4.2.7.3.698 [id number] [facility] 2022-07-24 09:20:00 2022-07-24 09:41:38 Urgent Care Unknown, Attending Jennifer Horta 1.2.840.1 89701.1.1 3.104.2.7 .3.578994 .8 [id number] [facility] 2022-07-24 09:20:00 2022-07-24 09:20:00 Outpatient R JENNIFER HORTA [facility] [id number] [facility] 2022-07-24 00:00:00 2022-07-24 00:00:00 Orders Only Doctor Unassigned, [employer] 1.2.840.1 88189.1.1 3.104.2.7 .3.012537 .8 [id number] [facility] 2022-07-24 00:00:00 2022-07-24 00:00:00 Travel 1.2.840.1 69068.1.1 3.104.2.7 .3.128836 .8 1.2.840.114 350.1.13.10 4.2.7.3.698 [id number] [facility] 2022-07-16 00:00:00 2022-07-16 00:00:00 Outpatient DINA_Dana parson_ [facility] AOSM [id number] [facility] 2022-07-04 15:50:00 2022-07-04 17:59:00 Emergency X [facility] ERT [id number] [facility] 2022-07-04 15:50:00 2022-07-04 17:59:00 Emergency Singer Abe 1.2.840.1 22450.1.1 3.104.2.7 .3.214194 .8 [id number] [facility] 2022-07-04 00:00:00 2022-07-04 00:00:00 Travel 1.2.840.1 68586.1.1 3.104.2.7 .3.937684 .8 1.2.840.114 350.1.13.10 4.2.7.3.698 084.8 [id number] [facility] 2022-07-02 00:00:00 2022-07-02 00:00:00 Outpatient FOG_Dana Ovalle AO AO [id number] [facility] 2022-07-02 00:00:00 2022-07-02 00:00:00 Outpatient FOG_Dana Ovalle AO AO [id number] [facility] 2022-07-02 00:00:00 2022-07-02 00:00:00 Ashutosh Bhandari MD: [address] [place] [phone] , Ph. [phone] [facility] [place] [facility] [place] [facility] F[facility] [id number] [facility] 2022-06-17 10:23:00 2022-06-17 15:50:00 Emergency X [facility] ERT [id number] [facility] [facility] 20[facility]-17 10:23:00 2022-06-17 15:50:00 Emergency Renny Werner [facility] [id number] 350.1.13.10 4.2.7.2.686 [id number] [id number] [facility] 2021-12-25 17:57:00 2021-12-25 19:32:00 Emergency X [facility] ERT [id number] [facility] 2021-12-25 17:57:00 2021-12-25 19:32:00 Emergency Libia Nguyen [facility] .2.840.114 350.1.13.10 4.2.7.2.686 [id number] [id number] [facility] 2021-06-04 00:00:00 2021-06-04 00:00:00 Outpatient FOG_Dana Ovalle [facility] [id number] [facility] 2021-05-26 11:35:00 2021-05-26 13:35:00 Emergency X [facility] ERT [id number] [facility] 2021-05-26 11:35:00 2021-05-26 13:35:00 Emergency Abe Carl [facility] [id number] 350.1.13.10 4.2.7.2.686 [id number] [id number] [facility] Results Test Description Test Time Test Comments Results Result Co mments Source [facility] Specific [id number] 20:52:00* Test Item Value Reference Range Interpretation Comme nts POCT U SP GRAV (test code = 3255) 1.015 mg/dl 1.005-1.025 POCT PH U (test code = 3254) 5 mg/dl 5-8 POCT U LEUK EST (test code = 3263) + Negative - Negative POCT U NIT (test code = 3262) negative Negative - Negati ve POCT U PROT (test code = 3259) Negative Negative - Negative POCT U GLU (test code = 3256) negative Negative - Negati ve POCT U KETONE (test code = 3258) negative Negative - Negative POCT U UROBILI (test code = 3260) normal 0.2-1 POCT U BILI (test code = 3261) negative Negative - Negative POCT U BLD (test code = 3257) about 250 Negative - Negati ve POCT U COLOR (test code = 3266) pale yellow POCT U APPEAR (test code = 3267) clear Lab Interpretation (test cod e = 81395-9) Abnormal [facility] W Specific [id number] 19:55:00* Test Item Value Reference Range Interpretation Comme nts POCT U SP GRAV (test code = 3255) 1.015 mg/dl 1.005-1.025 POCT PH U (test code = 3254) 5 mg/dl 5-8 POCT U LEUK EST (test code = 3263) negative Negative - Negative POCT U NIT (test code = 3262) negative Negative - Negati ve POCT U PROT (test code = 3259) negative Negative - Negative POCT U GLU (test code = 3256) negative Negative - Negati ve POCT U KETONE (test code = 3258) negative Negative - Negative POCT U UROBILI (test code = 3260) negative 0.2-1 POCT U BILI (test code = 3261) negative Negative - Negative POCT U BLD (test code = 3257) about 50 Negative - Negati ve POCT U COLOR (test code = 3266) yellow POCT U APPEAR (test code = 3267) hazy [facility] 2 VW [id number] 00:48:52XR PELVIS <3 VW, XR HIPS 2 VW LEFT HISTORY: ?left hip pain COMPARISON: ?none available. Findings:The osseous structures are demineralized. 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 Metallic coils project over the rightproximal thigh. No abnormal soft tissue calcification.[facility] PELVIS <3 [id number] 00:48:52XR PELVIS <3 VW, XR HIPS 2 VW LEFT HISTORY: ?left hip pain COMPARISON: ?none available. Findings:The osseous structures are demineralized. 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 Metallic coils project over the rightproximal thigh. No abnormal soft tissue calcification.[facility]2023-08-07 11:34:36* Test Item Value Reference Range Interpretation Comme nts PHOSPHORUS (test code = 5614809056) 3.5 mg/dL 2.5-5.0 Lab Interpretation (test cod e = 92091-5) Normal [facility]2023-08-07 11:34:36* Test Item Value Reference Range Interpretation Comme nts MAGNESIUM (test code = 6026213310) 2.1 mg/dL 1.7-2.4 Lab Interpretation (test cod e = 96910-7) Normal [facility] (NA, K, CL, CO2, GLUCOSE, BUN, CREATININE, CA)2022-09-30 11:34:36* Test Item Value Reference Range Interpretation Comme nts NA (test code = 8933907736) 133 mmol/L 135-145 L K (test code = 0234151540) 4.2 mmol/L 3.5-5.0 CL (test code = 2386259660) 105 mmol/L 98-108 CO2 TOTAL (test code = 9383713247) 21 mmol/L 23-31 L AGAP (test code = 2899963736) 7 2-16 BUN (test code = 1336230358) 18 mg/dL 7-23 GLUCOSE (test code = 0647549714) 92 mg/dL 70-110 CREATININE (test code = 4801158174) 0.84 mg/dL 0.50-1.04 CALCIUM (test code = 1998984160) 7.8 mg/dL 8.6-10.6 L eGFR (test code = 3313342069) 64.3 mL/min/1.73m2 SLICK (test code = SLICK) Association of Glomerular Filtration Rate (GFR) and Staging of Kidney Disease* + --+ --+ ------+| GFR (mL/min/1.73 m2) ?| With Kidney Damage ?| ?Without Kidney Damage+ --------+ --------+ +| ?>90 ?| ?Stage one ?| ? Normal ?+ ---+ ---+ -------+| ?60-89 ?| ?Stage two ?| ? Decreased GFR ? + --+ --+ ------+| ?30-59 ?| ?Stage three ?| ? Stage three ? + --+ --+ ------+| ?15-29 ?| ?Stage four ? | ? Stage four ?+ ---+ ---+ -------+| ?<15 (or dialysis) ? ?| ?Stage five ? | ? Stage five ?+ ---+ ---+ -------+ *Each stage assumes the associated GFR [...] imaging tests). Lab Interpretation (test code = 69780-4) Abnormal [facility] METABOLIC PANEL (NA, K, CL, CO2, GLUCOSE, BUN, CREATININE, CA)2022-09-30 11:34:36* Test Item Value Reference Range Interpretation Comme nts NA (test code = 3168152489) 133 mmol/L 135-145 L K (test code = 7103270317) 4.2 mmol/L 3.5-5.0 CL (test code = 8372637301) 105 mmol/L 98-108 CO2 TOTAL (test code = 0004098120) 21 mmol/L 23-31 L AGAP (test code = 2864352278) 7 2-16 BUN (test code = 2293982213) 18 mg/dL 7-23 GLUCOSE (test code = 1166125500) 92 mg/dL 70-110 CREATININE (test code = 5078844244) 0.84 mg/dL 0.50-1.04 CALCIUM (test code = 6294419457) 7.8 mg/dL 8.6-10.6 L eGFR (test code = 6515852368) 64.3 mL/min/1.73m2 SLCIK (test code = SLICK) Association of Glomerular Filtration Rate (GFR) and Staging of Kidney Disease* + --+ --+ ------+| GFR (mL/min/1.73 m2) ?| With Kidney Damage ?| ?Without Kidney Damage+ --------+ --------+ +| ?>90 ?| ?Stage one ?| ? Normal ?+ ---+ ---+ -------+| ?60-89 ?| ?Stage two ?| ? Decreased GFR ? + --+ --+ ------+| ?30-59 ?| ?Stage three ?| ? Stage three ? + --+ --+ ------+| ?15-29 ?| ?Stage four ? | ? Stage four ?+ ---+ ---+ -------+| ?<15 (or dialysis) ? ?| ?Stage five ? | ? Stage five ?+ ---+ ---+ -------+ *Each stage assumes the associated GFR [...] imaging tests). Lab Interpretation (test code = 37771-9) Abnormal [facility]2023-08-07 11:34:36* Test Item Value Reference Range Interpretation Comme nts MAGNESIUM (test code = 4193163528) 2.1 mg/dL 1.7-2.4 Lab Interpretation (test cod e = 32427-9) Normal [facility]2023-08-07 11:34:36* Test Item Value Reference Range Interpretation Comme nts PHOSPHORUS (test code = 9684606695) 3.5 mg/dL 2.5-5.0 Lab Interpretation (test cod e = 88501-3) Normal [facility] WITH [id number] 11:05:15* Test Item Value Reference Range Interpretation Comme nts WBC (test code = 6690-2) 7.37 See_Comment [Automated messa ge] The system which generated this result transmitted reference range: 4.30 - 11.10 10*3/?L. The reference range was not used to interpret this result as normal/abnormal. RBC (test code = 789-8) 2.64 See_Comment L [Automated messa ge] The system which generated this result transmitted reference range: 3.93 - 5.25 10*6/?L. The reference range was not used to interpret this result as normal/abnormal. HGB (test code = 718-7) 8.1 g/dL 11.6-15.0 L HCT (test code = 4544-3) 24.6 % 35.7-45.2 L MCV (test code = 787-2) 93.2 fL 80.6-95.5 MCH (test code = 785-6) 30.7 pg 25.9-32.8 MCHC (test code = 786-4) 32.9 g/dL 31.6-35.1 RDW-SD (test code = 79407-9) 56.2 fL 39.0-49.9 H RDW-CV (test code = 788-0) 17.1 % 12.0-15.5 H PLT (test code = 777-3) 215 See_Comment [Automated messa ge] The system which generated this result transmitted reference range: 166 - 358 10*3/?L. The reference range was not used to interpret this result as normal/abnormal. MPV (test code = 03305-6) 9.5 fL 9.5-12.9 NRBC/100 WBC (test code = 8851365311) 0.0 See_Comment [Automated me ssage] The system which generated this result transmitted reference range: 0.0 - 10.0 /100 WBCs. The reference range was not used to interpret this result as normal/abnormal. NRBC x10^3 (test code = 3549269938) See_Comment [Automated messa ge] The system which generated this result transmitted reference range: 10*3/?L. The reference range was not used to interpret this result as normal/abnormal. GRAN MAT (NEUT) % (test code = 770-8) 61.2 % IMM GRAN % (test code = 8647799578) 0.50 % LYMPH % (test code = 736-9) 22.4 % MONO % (test code = 5905-5) 13.0 % EOS % (test code = 713-8) 2.6 % BASO % (test code = 706-2) 0.3 % GRAN MAT x10^3(ANC) (test code = 1600119466) 4.51 10*3/uL 1.88-7.09 IMM GRAN x10^3 (test code = 8086202709) 0.04 10*3/uL 0.00-0.06 LYMPH x10^3 (test code = 731-0) 1.65 10*3/uL 1.32-3.29 MONO x10^3 (test code = 742-7) 0.96 10*3/uL 0.33-0.92 H EOS x10^3 (test code = 711-2) 0.19 10*3/uL 0.03-0.39 BASO x10^3 (test code = 704-7) 0.01-0.07 Lab Interpretation (test code = 15044-2) Abnormal [facility] WITH [id number] 11:05:15* Test Item Value Reference Range Interpretation Comme nts WBC (test code = 6690-2) 7.37 See_Comment [Automated messa ge] The system which generated this result transmitted reference range: 4.30 - 11.10 10*3/?L. The reference range was not used to interpret this result as normal/abnormal. RBC (test code = 789-8) 2.64 See_Comment L [Automated messa ge] The system which generated this result transmitted reference range: 3.93 - 5.25 10*6/?L. The reference range was not used to interpret this result as normal/abnormal. HGB (test code = 718-7) 8.1 g/dL 11.6-15.0 L HCT (test code = 4544-3) 24.6 % 35.7-45.2 L MCV (test code = 787-2) 93.2 fL 80.6-95.5 MCH (test code = 785-6) 30.7 pg 25.9-32.8 MCHC (test code = 786-4) 32.9 g/dL 31.6-35.1 RDW-SD (test code = 39295-5) 56.2 fL 39.0-49.9 H RDW-CV (test code = 788-0) 17.1 % 12.0-15.5 H PLT (test code = 777-3) 215 See_Comment [Automated messa ge] The system which generated this result transmitted reference range: 166 - 358 10*3/?L. The reference range was not used to interpret this result as normal/abnormal. MPV (test code = 29042-6) 9.5 fL 9.5-12.9 NRBC/100 WBC (test code = 8920348285) 0.0 See_Comment [Automated [facility] ssage] The system which generated this result transmitted reference range: 0.0 - 10.0 /100 WBCs. The reference range was not used to interpret this result as normal/abnormal. NRBC x10^3 (test code = 4165576463) See_Comment [Automated messa ge] The system which generated this result transmitted reference range: 10*3/?L. The reference range was not used to interpret this result as normal/abnormal. GRAN MAT (NEUT) % (test code = 770-8) 61.2 % IMM GRAN % (test code = 0791645760) 0.50 % LYMPH % (test code = 736-9) 22.4 % MONO % (test code = 5905-5) 13.0 % EOS % (test code = 713-8) 2.6 % BASO % (test code = 706-2) 0.3 % GRAN MAT x10^3(ANC) (test code = 1792791064) 4.51 10*3/uL 1.88-7.09 IMM GRAN x10^3 (test code = 7241089537) 0.04 10*3/uL 0.00-0.06 LYMPH x10^3 (test code = 731-0) 1.65 10*3/uL 1.32-3.29 MONO x10^3 (test code = 742-7) 0.96 10*3/uL 0.33-0.92 H EOS x10^3 (test code = 711-2) 0.19 10*3/uL 0.03-0.39 BASO x10^3 (test code = 704-7) 0.01-0.07 Lab Interpretation (test code = 27764-0) Abnormal [facility] Packed RBC (in units), 1 Units 2022-09-28 20:15:41* Test Item Value Reference Range Interpretation Comme nts Cross Match Result (test code = 4409) Compatible ISBT Blood Type Code (test code = 297871) 6200 Unit Blood Type (test code = 4410) A Pos Unit Number (test code = 4411) [id number] Blood Expiration Date & Time (test code = 579744) [id number] Status Information (test code = 4412) Issued Product Identification (test code = 4413) Red Blood Cells Product Code (test code = 4414) [id number] Performed at [facility] B Laboratory Services [facility] Blood [address] [place] [address]Hdgb Free: [phone] No. [id number] [facility] Packed RBC (in units), 1 Units 2022-09-28 20:15:41* Test Item Value Reference Range Interpretation Comme nts Cross Match Result (test code = 4409) Compatible ISBT Blood Type Code (test code = 370566) 6200 Unit Blood Type (test code = 4410) A Pos Unit Number (test code = 4411) [id number] Blood Expiration Date & Time (test code = 879173) [id number] Status Information (test code = 4412) Issued Product Identification (test code = 4413) Red Blood Cells Product Code (test code = 4414) [id number] Performed at [facility] Laboratory Services - [facility] Blood [address] [address]Sopt Free: [phone] No. [id number] [facility] and Screen - ONCE [id number] 18:52:00* Test Item Value Reference Range Interpretation Comme nts ABO & RH (test code = 20) A POSITIVE IAT (test code = 1185) Negative [facility] - ONCE [id number] 18:52:00* Test Item Value Reference Range Interpretation Comme nts ABO & RH (test code = 20) A POSITIVE IAT (test code = 1185) Negative [facility] (NA, K, CL, CO2, GLUCOSE, BUN, CREATININE, CA)2022-09-27 13:59:08* Test Item Value Reference Range Interpretation Comme nts NA (test code = 6857830367) 136 mmol/L 135-145 K (test code = 0774007723) 5.0 mmol/L 3.5-5.0 Slight hemolysis CL (test code = 3362425573) 105 mmol/L 98-108 CO2 TOTAL (test code = 9175632181) 26 mmol/L 23-31 AGAP (test code = 5568963523) 5 2-16 BUN (test code = 0343232040) 16 mg/dL 7-23 Slight hemolysis GLUCOSE (test code = 0187816040) 88 mg/dL 70-110 CREATININE (test code = 3032734631) 0.71 mg/dL 0.50-1.04 CALCIUM (test code = 2862936819) 8.0 mg/dL 8.6-10.6 L eGFR (test code = 8807679545) 78.1 mL/min/1.73m2 SLICK (test code = SLICK) Association of Glomerular Filtration Rate (GFR) and Staging of Kidney Disease* + -----+ --------+ +| GFR (mL/min/1.73 m2) ?| With Kidney Damage ?| ?Without Kidney Damage+ +------- +---- --+| ?>90 ?| ?Stage one ?| ? Normal ?+ ------+ ---------+--------- +| ?60-89 ?| ?Stage two ?| ? Decreased GFR ? + -----+ --------+ +| ?30-59 ?| ?Stage three ?| ? Stage three ? + -----+ --------+ +| ?15-29 ?| ?Stage four ? | ? Stage four ?+ ------+ ---------+--------- +| ?<15 (or dialysis) ? ?| ?Stage five ? | ? Stage five ?+ ------+ ---------+--------- + *Each stage assumes the associated GFR level [...] imaging tests). Lab Interpretation (test code = 33030-5) Abnormal [facility]2023-[facility]-04 13:59:08* Test Item Value Reference Range Interpretation Comme nts PHOSPHORUS (test code = 5933829535) 2.7 mg/dL 2.5-5.0 Lab Interpretation (test cod e = 32691-8) Normal [facility]2023-[facility]-04 13:59:08* Test Item Value Reference Range Interpretation Comme nts MAGNESIUM (test code = 2909269617) 2.1 mg/dL 1.7-2.4 Lab Interpretation (test cod e = 51621-7) Normal [facility] WITH [id number] 13:33:50* Test Item Value Reference Range Interpretation Comme nts WBC (test code = 6690-2) 8.17 See_Comment [Automated [employer]] The system which generated this result transmitted reference range: 4.30 - 11.10 10*3/?L. The reference range was not used to interpret this result as normal/abnormal. RBC (test code = 789-8) 2.31 See_Comment L [Automated messa ge] The system which generated this result transmitted reference range: 3.93 - 5.25 10*6/?L. The reference range was not used to interpret this result as normal/abnormal. HGB (test code = 718-7) 7.1 g/dL 11.6-15.0 L HCT (test code = 4544-3) 21.7 % 35.7-45.2 L MCV (test code = 787-2) 93.9 fL 80.6-95.5 MCH (test code = 785-6) 30.7 pg 25.9-32.8 MCHC (test code = 786-4) 32.7 g/dL 31.6-35.1 RDW-SD (test code = 14613-2) 51.5 fL 39.0-49.9 H RDW-CV (test code = 788-0) 15.5 % 12.0-15.5 PLT (test code = 777-3) 219 See_Comment [Automated messa ge] The system which generated this result transmitted reference range: 166 - 358 10*3/?L. The reference range was not used to interpret this result as normal/abnormal. MPV (test code = 42429-1) 9.9 fL 9.5-12.9 NRBC/100 WBC (test code = 1984296536) 0.0 See_Comment [Automated [facility] ssage] The system which generated this result transmitted reference range: 0.0 - 10.0 /100 WBCs. The reference range was not used to interpret this result as normal/abnormal. NRBC x10^3 (test code = 2393866239) See_Comment [Automated messa ge] The system which generated this result transmitted reference range: 10*3/?L. The reference range was not used to interpret this result as normal/abnormal. GRAN MAT (NEUT) % (test code = 770-8) 65.9 % IMM GRAN % (test code = 5797685629) 0.40 % LYMPH % (test code = 736-9) 20.9 % MONO % (test code = 5905-5) 10.9 % EOS % (test code = 713-8) 1.8 % BASO % (test code = 706-2) 0.1 % GRAN MAT x10^3(ANC) (test code = 3387807638) 5.38 10*3/uL 1.88-7.09 IMM GRAN x10^3 (test code = 1755281932) 0.03 10*3/uL 0.00-0.06 LYMPH x10^3 (test code = 731-0) 1.71 10*3/uL 1.32-3.29 MONO x10^3 (test code = 742-7) 0.89 10*3/uL 0.33-0.92 EOS x10^3 (test code = 711-2) 0.15 10*3/uL 0.03-0.39 BASO x10^3 (test code = 704-7) 0.01-0.07 Lab Interpretation (test code = 48159-0) Abnormal [facility] GLUCOSE (AUTOMATED)2022-09-27 13:22:50* Test Item Value Reference Range Interpretation Comme [facility] POCT GLU (test code = 4954463770) 107 mg/dL 70-110 Lab Interpretation (test cod e = 11773-5) Normal [facility] GLUCOSE (AUTOMATED)2022-09-27 13:22:50* Test Item Value Reference Range Interpretation Comme nts POCT GLU (test code = 3583114287) 107 mg/dL 70-110 Lab Interpretation (test cod e = 71200-9) Normal [facility] GLUCOSE (AUTOMATED)2022-09-26 13:28:15* Test Item Value Reference Range Interpretation Comme [facility] POCT GLU (test code = 9678345940) 135 mg/dL 70-110 H Lab Interpretation (test cod e = 54188-2) Abnormal [facility]wood[facility]th[facility] Time / [id number] 15:04:31* Test Item Value Reference Range Interpretation Comme nts PROTIME PATIENT (test code = 5964-2) 12.6 See_Comment [Automated [employer] ge] The system which generated this result transmitted reference range: 10.1 - 12.6 Seconds. The reference range was not used to interpret this result as normal/abnormal. INR (test code = 6301-6) 1.1 Normal INR <1.1; Warfarin Therapeutic range 2.0 to 3.0 or 2.5 to 3.5, depending upon the indications. Lab Interpretation (test code = 69285-8) Normal [facility] [id number] 15:04:31* Test Item Value Reference Range Interpretation Comme nts APTT Patient (test code = 3173-2) 30 See_Comment [Automated messa ge] The system which generated this result transmitted reference range: 26 - 36 Seconds. The reference range was not used to interpret this result as normal/abnormal. Lab Interpretation (test code = 68691-3) Normal [facility]wood[facility]2023-08-02 15:04:31* Test Item Value Reference Range Interpretation Comme nts Fibrinogen (test code = 2947596486) 291 mg/dL 167-453 Lab Interpretation (test cod e = 65565-8) Normal [facility] [id number] 15:04:31* Test Item Value Reference Range Interpretation Comme nts APTT Patient (test code = 3173-2) 30 See_Comment [Automated messa ge] The system which generated this result transmitted reference range: 26 - 36 Seconds. The reference range was not used to interpret this result as normal/abnormal. Lab Interpretation (test code = 14845-0) Normal [facility]2023-08-02 15:04:31* Test Item Value Reference Range Interpretation Comme nts Fibrinogen (test code = 7811385692) 291 mg/dL 167-453 Lab Interpretation (test cod e = 66422-5) Normal [facility]2023-08-02 15:04:31* Test Item Value Reference Range Interpretation Comme nts Fibrinogen (test code = 1458567212) 291 mg/dL 167-453 Lab Interpretation (test cod e = 48076-5) Normal [facility] [id number] 15:04:31* Test Item Value Reference Range Interpretation Comme nts APTT Patient (test code = 3173-2) 30 See_Comment [Automated messa ge] The system which generated this result transmitted reference range: 26 - 36 Seconds. The reference range was not used to interpret this result as normal/abnormal. Lab Interpretation (test code = 09869-8) Normal [facility]woodPro[facility] Time / [id number] 15:04:31* Test Item Value Reference Range Interpretation Comme nts PROTIME PATIENT (test code = 5964-2) 12.6 See_Comment [Automated messa ge] The system which generated this result transmitted reference range: 10.1 - 12.6 Seconds. The reference range was not used to interpret this result as normal/abnormal. INR (test code = 6301-6) 1.1 Normal INR <1.1; Warfarin Therapeutic range 2.0 to 3.0 or 2.5 to 3.5, depending upon the indications. Lab Interpretation (test code = 86371-3) Normal [facility] WITHOUT [id number] 14:45:10* Test Item Value Reference Range Interpretation Comme nts WBC (test code = 6690-2) 8.20 See_Comment [Automated message] The system which generated this result transmitted reference range: 4.30 - 11.10 10*3/?L. The reference range was not used to interpret this result as normal/abnormal. RBC (test code = 789-8) 2.45 See_Comment L [Automated message] The system which generated this result transmitted reference range: 3.93 - 5.25 10*6/?L. The reference range was not used to interpret this result as normal/abnormal. HGB (test code = 718-7) 7.6 g/dL 11.6-15.0 L HCT (test code = 4544-3) 23.4 % 35.7-45.2 L MCH (test code = 785-6) 31.0 pg 25.9-32.8 MCV (test code = 787-2) 95.5 fL 80.6-95.5 MCHC (test code = 786-4) 32.5 g/dL 31.6-35.1 PLT (test code = 777-3) 191 See_Comment [Automated message] The system which generated this result transmitted reference range: 166 - 358 10*3/?L. The reference range was not used to interpret this result as normal/abnormal. MPV (test code = 60771-7) 9.9 fL 9.5-12.9 RDW-CV (test code = 788-0) 15.1 % 12.0-15.5 RDW-SD (test code = 38884-2) 52.1 fL 39.0-49.9 H NRBC x10^3 (test code = 9636617132) See_Comment [Automated messa ge] The system which generated this result transmitted reference range: 10*3/?L. The reference range was not used to interpret this result as normal/abnormal. NRBC/100 WBC (test code = 4802713141) 0.0 See_Comment [Automated messa ge] The system which generated this result transmitted reference range: 0.0 - 10.0 /100 WBCs. The reference range was not used to interpret this result as normal/abnormal. IPF % (test code = 2896309094) Lab Interpretation (test code = 22720-1) Abnormal [facility] WITHOUT [id number] 14:45:10* Test Item Value Reference Range Interpretation Comme nts WBC (test code = 6690-2) 8.20 See_Comment [Automated message] The system which generated this result transmitted reference range: 4.30 - 11.10 10*3/?L. The reference range was not used to interpret this result as normal/abnormal. RBC (test code = 789-8) 2.45 See_Comment L [Automated message] The system which generated this result transmitted reference range: 3.93 - 5.25 10*6/?L. The reference range was not used to interpret this result as normal/abnormal. HGB (test code = 718-7) 7.6 g/dL 11.6-15.0 L HCT (test code = 4544-3) 23.4 % 35.7-45.2 L MCH (test code = 785-6) 31.0 pg 25.9-32.8 MCV (test code = 787-2) 95.5 fL 80.6-95.5 MCHC (test code = 786-4) 32.5 g/dL 31.6-35.1 PLT (test code = 777-3) 191 See_Comment [Automated message] The system which generated this result transmitted reference range: 166 - 358 10*3/?L. The reference range was not used to interpret this result as normal/abnormal. MPV (test code = 19781-4) 9.9 fL 9.5-12.9 RDW-CV (test code = 788-0) 15.1 % 12.0-15.5 RDW-SD (test code = 65504-7) 52.1 fL 39.0-49.9 H NRBC x10^3 (test code = 0350640895) See_Comment [Automated messa ge] The system which generated this result transmitted reference range: 10*3/?L. The reference range was not used to interpret this result as normal/abnormal. NRBC/100 WBC (test code = 9749614981) 0.0 See_Comment [Automated messa ge] The system which generated this result transmitted reference range: 0.0 - 10.0 /100 WBCs. The reference range was not used to interpret this result as normal/abnormal. IPF % (test code = 0039339643) Lab Interpretation (test code = 25232-0) Abnormal [facility] WITHOUT [id number] 06:46:54* Test Item Value Reference Range Interpretation Comme nts WBC (test code = 6690-2) 10.61 See_Comment [Automated message] The system which generated this result transmitted reference range: 4.30 - 11.10 10*3/?L. The reference range was not used to interpret this result as normal/abnormal. RBC (test code = 789-8) 2.75 See_Comment L [Automated message] The system which generated this result transmitted reference range: 3.93 - 5.25 10*6/?L. The reference range was not used to interpret this result as normal/abnormal. HGB (test code = 718-7) 8.5 g/dL 11.6-15.0 L HCT (test code = 4544-3) 25.7 % 35.7-45.2 L MCH (test code = 785-6) 30.9 pg 25.9-32.8 MCV (test code = 787-2) 93.5 fL 80.6-95.5 MCHC (test code = 786-4) 33.1 g/dL 31.6-35.1 PLT (test code = 777-3) 185 See_Comment [Automated message] The system which generated this result transmitted reference range: 166 - 358 10*3/?L. The reference range was not used to interpret this result as normal/abnormal. MPV (test code = 73998-2) 9.8 fL 9.5-12.9 RDW-CV (test code = 788-0) 15.1 % 12.0-15.5 RDW-SD (test code = 31220-1) 51.7 fL 39.0-49.9 H NRBC x10^3 (test code = 4372337709) See_Comment [Automated [employer]] The system which generated this result transmitted reference range: 10*3/?L. The reference range was not used to interpret this result as normal/abnormal. NRBC/100 WBC (test code = 8761790305) 0.0 See_Comment [Automated [employer]] The system which generated this result transmitted reference range: 0.0 - 10.0 /100 WBCs. The reference range was not used to interpret this result as normal/abnormal. IPF % (test code = 3411783792) Lab Interpretation (test code = 37347-8) Abnormal [facility] Confirmation (Lab Only)2022-09-23 17:25:00* Test Item Value Reference Range Interpretation Comme nts ABO & RH (test code = 20) A Positive [facility] Confirmation (Lab Only)2022-09-23 17:25:00* Test Item Value Reference Range Interpretation Comme nts ABO & RH (test code = 20) A Positive [facility] Confirmation (Lab Only)2022-09-23 17:25:00* Test Item Value Reference Range Interpretation Comme nts ABO & [facility] (test code = 20) [facility] Test Item Value Reference Range Interpretation Comme nts NA (test code = 7476125233) 134 mmol/L 135-145 L K (test code = 3899538413) 4.6 mmol/L 3.5-5.0 CL (test code = 7593009633) 102 mmol/L 98-108 CO2 TOTAL (test code = 9377164416) 24 mmol/L 23-31 AGAP (test code = 2787962564) 8 2-16 BUN (test code = 9176894184) 29 mg/dL 7-23 H GLUCOSE (test code = 7929711873) 146 mg/dL 70-110 H CREATININE (test code = 1773887373) 1.04 mg/dL 0.50-1.04 TOTAL BILI (test code = 1883757495) 1.1 mg/dL 0.1-1.1 CALCIUM (test code = 0544093795) 8.5 mg/dL 8.6-10.6 L T PROTEIN (test code = 9609471108) 6.2 g/dL 6.3-8.2 L ALBUMIN (test code = 0789636750) 3.5 g/dL 3.5-5.0 ALK PHOS (test code = 7313041978) 69 U/L 34-122 ALTv (test code = 1742-6) 15 U/L 5-35 AST(SGOT) (test code = 8665951072) 27 U/L 13-40 eGFR (test code = 1098272944) 50.2 mL/min/1.73m2 SLICK (test code = SLICK) Association of Glomerular Filtration Rate (GFR) and Staging of Kidney Disease* + --+ --+ ------+| GFR (mL/min/1.73 m2) ?| With Kidney Damage ?| ?Without Kidney Damage+ --------+ --------+ +| ?>90 ?| ?Stage one ?| ? Normal ?+ ---+ ---+ -------+| ?60-89 ?| ?Stage two ?| ? Decreased GFR ? + --+ --+ ------+| ?30-59 ?| ?Stage three ?| ? Stage three ? + --+ --+ ------+| ?15-29 ?| ?Stage four ? | ? Stage four ?+ ---+ ---+ -------+| ?<15 (or dialysis) ? ?| ?Stage five ? | ? Stage five ?+ ---+ ---+ -------+ *Each stage assumes the associated GFR [...] imaging tests). Lab Interpretation (test code = 83048-2) [facility] 16:36:20* Test Item Value Reference Range Interpretation Comme [facility] LIPASE (test code = 4947114371) 92 U/L 0-220 Lab Interpretation (test cod e = 38411-6) Normal [facility]23[facility] 16:31:21* Test Item Value Reference Range Interpretation Comme [facility] APTT Patient (test code = 3173-2) 32 See_Comment [Automated message] The system which generated this result transmitted reference range: 23 - 38 Seconds. The reference range was not used to interpret this result as normal/abnormal. SLICK (test code = SLICK) [facility] patient population mean normal value for aPTT is 30 seconds. Lab Interpretation (test code = 07865-7) Normal [facility]wood[facility]throm[facility] Time / [id number] 16:29:19* Test Item Value Reference Range Interpretation Comme [facility] PROTIME PATIENT (test code = 5964-2) 21.4 See_Comment H [Automated messa ge] The system which generated this result transmitted reference range: 12.0 - 14.7 Seconds. The reference range was not used to interpret this result as normal/abnormal. INR (test code = 6301-6) 1.9 Normal INR <1.1; Warfarin Therapeutic range 2.0 to 3.0 or 2.5 to 3.5, depending upon the indications. Lab Interpretation (test code = 63893-0) Abnormal [facility]wood[facility] Without [id number] 16:17:21* Test Item Value Reference Range Interpretation Comme [facility] WBC (test code = 6690-2) 11.67 See_Comment H [Automated message] The system which generated this result transmitted reference range: 4.30 - 11.10 10*3/?L. The reference range was not used to interpret this result as normal/abnormal. RBC (test code = 789-8) 3.71 See_Comment L [Automated message] The system which generated this result transmitted reference range: 3.93 - 5.25 10*6/?L. The reference range was not used to interpret this result as normal/abnormal. HGB (test code = 718-7) 11.5 g/dL 11.6-15.0 L HCT (test code = 4544-3) 35.2 % 35.7-45.2 L MCH (test code = 785-6) 31.0 pg 25.9-32.8 MCV (test code = 787-2) 94.9 fL 80.6-95.5 MCHC (test code = 786-4) 32.7 g/dL 31.6-35.1 PLT (test code = 777-3) 224 See_Comment [Automated message] The system which generated this result transmitted reference range: 166 - 358 10*3/?L. The reference range was not used to interpret this result as normal/abnormal. MPV (test code = 85632-2) 9.8 fL 9.5-12.9 RDW-CV (test code = 788-0) 14.5 % 12.0-15.5 RDW-SD (test code = 05615-3) 50.3 fL 39.0-49.9 H NRBC x10^3 (test code = 5089522121) See_Comment [Automated [employer]] The system which generated this result transmitted reference range: 10*3/?L. The reference range was not used to interpret this result as normal/abnormal. NRBC/100 WBC (test code = 5622359464) 0.0 See_Comment [Automated [employer]] The system which generated this result transmitted reference range: 0.0 - 10.0 /100 WBCs. The reference range was not used to interpret this result as normal/abnormal. IPF % (test code = 7701756195) Lab Interpretation (test code = 16474-4) [facility]wood[facility] - The Type and Screen expires at midnight on the 3rd day after it was drawn. A current Type and Screen is required when RBCs are requested. For all other blood products, a Type and Scr een performed during the current hospitalizati...2022-09-23 16:14:00* Test Item Value Reference Range Interpretation Comme nts ABO & RH (test code = 20) A Positive IAT (test code = 1185) Negative [facility]woodPO[facility] URINAL[facility] W SPECIFIC [id number] 14:28:00* Test Item Value Reference Range Interpretation Comme nts POCT U SP GRAV (test code = 3255) 1.005 mg/dl 1.005-1.025 POCT PH U (test code = 3254) 6 mg/dl 5-8 POCT U LEUK EST (test code = 3263) trace Negative - Negative POCT U NIT (test code = 3262) negative Negative - Negati ve POCT U PROT (test code = 3259) negative Negative - Negative POCT U GLU (test code = 3256) negative Negative - Negati ve POCT U KETONE (test code = 3258) negative Negative - Negative POCT U UROBILI (test code = 3260) negative 0.2-1 POCT U BILI (test code = 3261) negative Negative - Negative POCT U BLD (test code = 3257) about 250 Negative - Negati ve POCT U COLOR (test code = 3266) yellow POCT U APPEAR (test code = 3267) [facility] URINALYSIS W SPECIFIC [id number] 14:28:00* Test Item Value Reference Range Interpretation Comme nts POCT U SP GRAV (test code = 3255) 1.005 mg/dl 1.005-1.025 POCT PH U (test code = 3254) 6 mg/dl 5-8 POCT U LEUK EST (test code = 3263) trace Negative - Negative POCT U NIT (test code = 3262) negative Negative - Negati ve POCT U PROT (test code = 3259) negative Negative - Negative POCT U GLU (test code = 3256) negative Negative - Negati ve POCT U KETONE (test code = 3258) negative Negative - Negative POCT U UROBILI (test code = 3260) negative 0.2-1 POCT U BILI (test code = 3261) negative Negative - Negative POCT U BLD (test code = 3257) about 250 Negative - Negati ve POCT U COLOR (test code = 3266) yellow POCT U APPEAR (test code = 3267) [facility] URINALYSIS W SPECIFIC [id number] 14:28:00* Test Item Value Reference Range Interpretation Comme nts POCT U SP GRAV (test code = 3255) 1.005 mg/dl 1.005-1.025 POCT PH U (test code = 3254) 6 mg/dl 5-8 POCT U LEUK EST (test code = 3263) trace Negative - Negative POCT U NIT (test code = 3262) negative Negative - Negati ve POCT U PROT (test code = 3259) negative Negative - Negative POCT U GLU (test code = 3256) negative Negative - Negati ve POCT U KETONE (test code = 3258) negative Negative - Negative POCT U UROBILI (test code = 3260) negative 0.2-1 POCT U BILI (test code = 3261) negative Negative - Negative POCT U BLD (test code = 3257) about 250 Negative - Negati ve POCT U COLOR (test code = 3266) yellow POCT U APPEAR (test code = 3267) [facility]woodTROPONIN [id number] 18:08:25* Test Item Value Reference Range Interpretation Comme nts TROPONIN I (test code = 8991999586) 0.002 ng/mL <=0.034 SLICK (test code = SLICK) Reference (Normal) Range (defined by the 99th percentile reference limit): <= 0.034 ng/mL Note: Cardiac troponin begins to rise 3-4 hours after the onset of ischemia. Repeat in 4-6 hours if the sample was drawn within 3-4 hours of the onset of the symptom and found normal. Diagnosis of myocardial injury is made with acute changes in cTn concentrations with at least one serial sample above the 99th percentile upper reference limit (URL), taken together with the patient's clinical presentation. Biotin has been reported to cause a negative bias, interpret results relative to patient's use of biotin. Lab Interpretation (test code = 00896-1) Normal [facility]wood[facility]. METABOLIC PANEL (51806)2022-06-17 17:58:24* Test Item Value Reference Range Interpretation Comme nts NA (test code = 1117414294) 136 mmol/L 135-145 K (test code = 3190732394) 4.7 mmol/L 3.5-5.0 CL (test code = 2920780883) 106 mmol/L 98-108 CO2 TOTAL (test code = 5838773455) 25 mmol/L 23-31 AGAP (test code = 7872459321) 5 2-16 BUN (test code = 4516319148) 27 mg/dL 7-23 H GLUCOSE (test code = 4607966186) 100 mg/dL 70-110 CREATININE (test code = 5379644684) 0.84 mg/dL 0.50-1.04 TOTAL BILI (test code = 9170241308) 1.0 mg/dL 0.1-1.1 CALCIUM (test code = 5951254236) 8.5 mg/dL 8.6-10.6 L T PROTEIN (test code = 5736016666) 6.4 g/dL 6.3-8.2 ALBUMIN (test code = 8958266429) 3.7 g/dL 3.5-5.0 ALK PHOS (test code = 6519711125) 69 U/L 34-122 ALTv (test code = 1742-6) 20 U/L 5-35 AST(SGOT) (test code = 6005694576) 34 U/L 13-40 eGFR (test code = 5117047439) 64.3 mL/min/1.73m2 SLICK (test code = SLICK) Association of Glomerular Filtration Rate (GFR) and Staging of Kidney Disease* + --+ --+ ------+| GFR (mL/min/1.73 m2) ?| With Kidney Damage ?| ?Without Kidney Damage+ --------+ --------+ +| ?>90 ?| ?Stage one ?| ? Normal ?+ ---+ ---+ -------+| ?60-89 ?| ?Stage two ?| ? Decreased GFR ? + --+ --+ ------+| ?30-59 ?| ?Stage three ?| ? Stage three ? + --+ --+ ------+| ?15-29 ?| ?Stage four ? | ? Stage four ?+ ---+ ---+ -------+| ?<15 (or dialysis) ? ?| ?Stage five ? | ? Stage five ?+ ---+ ---+ -------+ *Each stage assumes the associated GFR [...] imaging tests). Lab Interpretation (test code = 46757-0) Abnormal [facility] WITH [id number] 17:42:40* Test Item Value Reference Range Interpretation Comme nts WBC (test code = 6690-2) 8.31 See_Comment [Automated [employer]] The system which generated this result transmitted reference range: 4.30 - 11.10 10*3/?L. The reference range was not used to interpret this result as normal/abnormal. RBC (test code = 789-8) 3.86 See_Comment L [Automated [employer]] The system which generated this result transmitted reference range: 3.93 - 5.25 10*6/?L. The reference range was not used to interpret this result as normal/abnormal. HGB (test code = 718-7) 12.1 g/dL 11.6-15.0 HCT (test code = 4544-3) 36.3 % 35.7-45.2 MCV (test code = 787-2) 94.0 fL 80.6-95.5 MCH (test code = 785-6) 31.3 pg 25.9-32.8 MCHC (test code = 786-4) 33.3 g/dL 31.6-35.1 RDW-SD (test code = 25251-2) 48.1 fL 39.0-49.9 RDW-CV (test code = 788-0) 14.1 % 12.0-15.5 PLT (test code = 777-3) 205 See_Comment [Automated [employer]] The system which generated this result transmitted reference range: 166 - 358 10*3/?L. The reference range was not used to interpret this result as normal/abnormal. MPV (test code = 33988-0) 10.1 fL 9.5-12.9 NRBC/100 WBC (test code = 0437387819) 0.0 See_Comment [Automated [facility] ssage] The system which generated this result transmitted reference range: 0.0 - 10.0 /100 WBCs. The reference range was not used to interpret this result as normal/abnormal. NRBC x10^3 (test code = 2382718577) See_Comment [Automated messa ge] The system which generated this result transmitted reference range: 10*3/?L. The reference range was not used to interpret this result as normal/abnormal. GRAN MAT (NEUT) % (test code = 770-8) 75.9 % IMM GRAN % (test code = 3739985244) 0.20 % LYMPH % (test code = 736-9) 16.8 % MONO % (test code = 5905-5) 6.5 % EOS % (test code = 713-8) 0.4 % BASO % (test code = 706-2) 0.2 % GRAN MAT x10^3(ANC) (test code = 8134930202) 6.30 10*3/uL 1.88-7.09 IMM GRAN x10^3 (test code = 9967469633) 0.00-0.06 LYMPH x10^3 (test code = 731-0) 1.40 10*3/uL 1.32-3.29 MONO x10^3 (test code = 742-7) 0.54 10*3/uL 0.33-0.92 EOS x10^3 (test code = 711-2) 0.03 10*3/uL 0.03-0.39 BASO x10^3 (test code = 704-7) 0.01-0.07 Lab Interpretation (test code = 86513-0) Abnormal [facility]. METABOLIC PANEL (87385)2021-05-26 17:28:49* Test Item Value Reference Range Interpretation Comme nts NA (test code = 6485809796) 137 mmol/L 135-145 K (test code = 5447176651) 4.6 mmol/L 3.5-5.0 CL (test code = 2748665180) 101 mmol/L 98-108 CO2 TOTAL (test code = 8574381489) 24 mmol/L 23-31 AGAP (test code = 4512902441) 2-16 BUN (test code = 9623612696) 28 mg/dL 7-23 H GLUCOSE (test code = 3749930830) 116 mg/dL 70-110 H CREATININE (test code = 9976105257) 0.85 mg/dL 0.50-1.04 TOTAL BILI (test code = 5337418153) 1.2 mg/dL 0.1-1.1 H CALCIUM (test code = 2810679391) 9.2 mg/dL 8.6-10.6 T PROTEIN (test code = 8965791728) 7.5 g/dL 6.3-8.2 ALBUMIN (test code = 0423026233) 4.6 g/dL 3.5-5.0 ALK PHOS (test code = 3595010053) 76 U/L 34-122 ALTv (test code = 1742-6) 17 U/L 5-35 AST(SGOT) (test code = 6636523682) 29 U/L 13-40 eGFR (test code = 7364363705) mL/min/1.73m2 SLICK (test code = SLICK) Association of Glomerular Filtration Rate (GFR) and Staging of Kidney Disease* + --+ --+ ------+| GFR (mL/min/1.73 m2) ?| With Kidney Damage ?| ?Without Kidney Damage+ --------+ --------+ +| ?>90 ?| ?Stage one ?| ? Normal ?+ ---+ ---+ -------+| ?60-89 ?| ?Stage two ?| ? Decreased GFR ? + --+ --+ ------+| ?30-59 ?| ?Stage three ?| ? Stage three ? + --+ --+ ------+| ?15-29 ?| ?Stage four ? | ? Stage four ?+ ---+ ---+ -------+| ?<15 (or dialysis) ? ?| ?Stage five ? | ? Stage five ?+ ---+ ---+ -------+ *Each stage assumes the associated GFR [...] imaging tests). Lab Interpretation (test code = 02506-0) Abnormal [facility] WITH [id number] 17:16:47* Test Item Value Reference Range Interpretation Comme nts WBC (test code = 6690-2) See_Comment [Automated messa ge] The system which generated this result transmitted reference range: 4.30 - 11.10 10*3/?L. The reference range was not used to interpret this result as normal/abnormal. RBC (test code = 789-8) See_Comment [Automated messa ge] The system which generated this result transmitted reference range: 3.93 - 5.25 10*6/?L. The reference range was not used to interpret this result as normal/abnormal. HGB (test code = 718-7) 13.6 g/dL 11.6-15.0 HCT (test code = 4544-3) 42.1 % 35.7-45.2 MCV (test code = 787-2) 95.9 fL 80.6-95.5 H MCH (test code = 785-6) 31.0 pg 25.9-32.8 MCHC (test code = 786-4) 32.3 g/dL 31.6-35.1 RDW-SD (test code = 07824-2) 54.6 fL 39.0-49.9 H RDW-CV (test code = 788-0) 15.6 % 12.0-15.5 H PLT (test code = 777-3) See_Comment [Automated messa ge] The system which generated this result transmitted reference range: 166 - 358 10*3/?L. The reference range was not used to interpret this result as normal/abnormal. MPV (test code = 13949-4) 9.7 fL 9.5-12.9 NRBC/100 WBC (test code = 5099527474) See_Comment [Automated [facility] ssage] The system which generated this result transmitted reference range: 0.0 - 10.0 /100 WBCs. The reference range was not used to interpret this result as normal/abnormal. NRBC x10^3 (test code = 1539123757) <0.01 See_Comment [Automated messa ge] The system which generated this result transmitted reference range: 10*3/?L. The reference range was not used to interpret this result as normal/abnormal. GRAN MAT (NEUT) % (test code = 770-8) 67.3 % IMM GRAN % (test code = 5349067287) 0.30 % LYMPH % (test code = 736-9) 21.7 % MONO % (test code = 5905-5) 9.8 % EOS % (test code = 713-8) 0.6 % BASO % (test code = 706-2) 0.3 % GRAN MAT x10^3(ANC) (test code = 0244424121) 4.30 10*3/uL 1.88-7.09 IMM GRAN x10^3 (test code = 3075004040) <0.03 0.00-0.06 LYMPH x10^3 (test code = 731-0) 1.39 10*3/uL 1.32-3.29 MONO x10^3 (test code = 742-7) 0.63 10*3/uL 0.33-0.92 EOS x10^3 (test code = 711-2) 0.04 10*3/uL 0.03-0.39 BASO x10^3 (test code = 704-7) <0.03 0.01-0.07 Lab Interpretation (test code = 14022-0) [facility] Whole [id number] 17:06:56* Test Item Value Reference Range Interpretation Comme nts LACTIC ACID (test code = 8190743851) 1.39 mmol/L 0.50-2.20 Lab Interpretation (test cod e = 59890-6) Normal [facility] XR FLUORO [id number] 12:20:00Patient Name: RAVINDER AUSTIN Unit No: [id number] EXAMS: CPT CODE: [id number] [place]R [place]O NDL [address] FLUOROSCOPICALLY GUIDED left prosthetic knee joint ASPIRATION COMMENT: After informed consent wasobtained a 22-gauge needle is inserted into left prosthetic knee joint under fluoroscopic control using sterile technique. 2 mL of fluid was aspirated. This is sent to the lab for analysis. The patient tolerated the procedure well. 0.5 minutes of fluoroscopy time was used on this exam. at 1220 Reported and signed by: Vida Sharma MD CC: Alexandra Matthews MD Technologist: Sanna Estrella RT.(R) Transcribed D/ (1220) [facility] NAME: RAVINDER AUSTIN [address] [facility] PHYS: Alexandra Talley MD : 1935 AGE: 83 SEX: F [place] [address] LOC: Y.LAB PHONE #: [phone] EXAM DATE: 05/07/2018 STATUS: DEP CLI FAX #: [phone] RAD #: D/C DT PAGE 1 Signed Report Patient Name: RAVINDER AUSTIN Unit No: [id number] EXAMS: CPT CODE: [id number] XR FLUORO NDL 76584 (Continued) Orig Print D/T: S: 05/11/2018 (1223) [facility] NAME: RAVINDER AUSTIN [address] [facility] PHYS: Alexandra Talley MD : 1935 AGE: 83 SEX: [place] [address] LOC: Y.LAB PHONE #: [phone] EXAM DATE: 05/07/2018 S TATUS: DEP CLI FAX #: [phone] RAD #: D/C DT PAGE 2 Signed ReportCBC W/AUTO [id number] 12:31:00* Test Item Value Reference Range Interpretation Comme nts WHITE BLOOD CELL (test code = WBC) [...] 27-34 N MEAN CELL HGB CONCENTRATION (test code = MCHC) 33.6 g/dL 30.8-34.1 N RED CELL DISTRIBUTION WIDTH (test code = RDW) 14.6 % 11-16 N PLT (test code = PLT) 261 K/mm3 130-400 N MEAN PLATELET VOLUME (test c ode = MPV) 10.8 fL 8.9-12.1 N NEUTROPHIL % (test code = NT%) 65.4 [...] K/mm3 0.02-0.10 N MANUAL DIFF REQUIRED (test c ode = MDIFF) NO MANUAL DIFF NUCLEATED RED BLOOD CELL (te st code = NRBC) 0 % 0-0 N SED [id number] 12:31:00* Test Item Value Reference Range Interpretation Comme nts SED RATE (test code = SEDW) 14 mm/hr 0-[id number] 12:04:00* Test Item Value Reference Range Interpretation Comme nts SYNOVIAL FLD COLOR (test code = COLSY) BLOODY LT. YELLOW A SYNOVIAL FLD APPEARANCE (test code = APPSY) BLOODY CLEAR A SYNOVIAL FLD VOLUME (test code = VOLSY) 0.5 mL SYNOVIAL FLD WBC (test code = WBCSY) 4510.000 /MM3 0-200 H SYNOVIAL FLD RBC (test code = RBCSY) 9543028.000 /mm3 0-2 H SYNOVIAL FLD POLY (test code = POLYSY) 52 % 0-25 H SYNOVIAL FLD LYMPHOCYTE (test code = LYMPHSY) 24 % 0-78 N SYNOVIAL FLD MONOCYTE (test code = MONOSY) 21 % 0-71 N SYNOVIAL FLD OTHER CELL (test code = OTHERSY) EOSINOPHILS = 3 SPECIMEN COMMENT: ASPIRATED PER DR SHARMA, LEFT KNEEC REACTIVE [id number] 11:55:00* Test Item Value Reference Range Interpretation Comme nts C REACTIVE PROTEIN (test cod e = CRP) < 0.2 mg/dL <0.9 CBC W/AUTO [id number] 11:45:00* Test Item Value Reference Range Interpretation Comme nts WHITE BLOOD CELL (test code = WBC) [...] 27-34 N MEAN CELL HGB CONCENTRATION (test code = MCHC) 33.6 g/dL 30.8-34.1 N RED CELL DISTRIBUTION WIDTH (test code = RDW) 14.6 % 11-16 N PLT (test code = PLT) 261 K/mm3 130-400 N MEAN PLATELET VOLUME (test c ode = MPV) 10.8 fL 8.9-12.1 N NEUTROPHIL % (test code = NT%) 65.4 [...] K/mm3 0.02-0.10 N MANUAL DIFF REQUIRED (test c ode = MDIFF) NO MANUAL DIFF NUCLEATED RED BLOOD CELL (te st code = NRBC) 0 % 0-0 N SED [id number] 11:45:00* Test Item Value Reference Range Interpretation Comme nts SED RATE (test code = SEDW) mm/hr 0-[id number] 11:42:00* Test Item Value Reference Range Interpretation Comme nts SYNOVIAL FLD COLOR (test code = COLSY) BLOODY LT. YELLOW A SYNOVIAL FLD APPEARANCE (test code = APPSY) BLOODY CLEAR A SYNOVIAL FLD VOLUME (test code = VOLSY) 0.5 mL SYNOVIAL FLD WBC (test code = WBCSY) 4510.000 /MM3 0-200 H SYNOVIAL FLD RBC (test code = RBCSY) 3069448.000 /mm3 0-2 H SPECIMEN COMMENT: ASPIRATED PER DR SHARMA, LEFT KNEESYNOVIAL FLD CELL CT/DIFF 2018-05-07 11:41:00* Test Item Value Reference Range Interpretation Comme nts SYNOVIAL FLD COLOR (test code = COLSY) LT. YELLOW SYNOVIAL FLD APPEARANCE (test code = APPSY) CLEAR SYNOVIAL FLD VOLUME (test code = VOLSY) mL SYNOVIAL FLD WBC (test code = WBCSY) 4510.000 /MM3 0-200 H SYNOVIAL FLD RBC (test code = RBCSY) 9502162.000 /mm3 0-2 H SPECIMEN COMMENT: ASPIRATED PER DR SHARMA, LEFT KNEE Consult Notes Date/Time Note Provider Source 2022-09-29 10:53:39 Associated Order(s): CONSULT ADULT PHYSICAL THERAPY Patient agreeable to PT. Patient met semi reclined in bed and /w daugther at bedside. . Recommend nursing staff utilize RW to safely assist patient with mobility out of the bed or chair. PHYSICAL THERAPY RE-EVALUATION Discharge Recommendations: Therapy Needs and Potential: Patient would benefit from continued physical therapy services to address: decline in bed mobility decline in transfers decline in gait and/or balance decreased strength decreased range of motion decreased endurance Patient demonstrates good potential to improve and meet therapy goals with further physical therapy services. Patient appears motivated to improve their functional mobility and return to their previous level of function. Patient demonstrates ability to tolerate atleast 30-60 minutes of physical therapy with active participation. Challenges to Home Transition: increased risk of falls decreased safety awareness Equipment recommendations: Patient has or access to necessary equipment Current Functional Status and/or Treatment: AM-PAC 6 Clicks (Raw Score 0=Dependent, 24=Independent; Low function Raw Score 0= Dependent, 32=Independent): Raw Score - Basic Mobility : 17 T-Scale Score - Basic Mobility : 39.67 Bed Mobility: Rolling: Minimal Assistance Supine to sit: Minimal Assistance Sit to supine: Minimal Assistance Pt requiring VC and TC for safe form and technique. Pt able to perform with minimal assist due to weakness. Transfers: Sit to stand: Minimal Assistance using Rolling Walker Stand to sit: Minimal Assistance using Rolling Walker Static/dynamic standing balance: Poor+ Verbal cueing provided for correct hand placement and correct use of AD Pt requiring TC and VC for hand placement for proper form and technique with transfers. Pt able to perform with min A today from bed slightly elevated using RW. Ambulation: Assisted patient with ambulation as follows: 95 feet using Rolling Walker and Supervision. Patient presenting with Swing-To gait pattern. Pt demonstrating decreased swing phase and increased stance with noted shuffle of BLE feet along with FHP, kyphotic Tspine posture eyes down. Cues minimally effective for resolution. No notable loss of balance during upright mobility. Therapeutic exercise: patient educated in Energy conservation, Fall prevention, General strengthening, and Positioning., instructed patient in the following: ankle pumps, heel slides, long arc quads, seated marching, and patient/caregiver instructed to perform HEP 2-3 times per day, 10-20 repetitions. Pt issued seated HEP to perform on own or with family assisting. Functional Outcome Measures: (Values within the past 12 hours) After session, patient up in chair. Call button provided. All needs met, and RN debriefed. PLAN OF CARE: While in the hospital, PT will follow patient at least 3 times per week,once or twice a day, per patient's tolerance and needs. PT Diagnosis: Difficulty walking, Weakness, Pain, and Abnormality of gait and balance Hospital Diagnosis: Hematoma [T14.8XXA] Fall, initial encounter [W19.XXXA] Reason for reassessment: s/p RLE Angiogram & Embolization on 09/28/22 Suspected ischemic or hemorraghic stroke patient: No Weight Bearing Precaution: NA General Precautions: PPE used:Gloves and Surgical mask, General, Fall, IV BUE Bracing/Cast present or required:N/A SUBJECTIVE: Pt agreeable and motivated to participate in therapy. Some complains regarding bottom bothering her. PAIN: -Pain Description: aching -Pain Location: bottom -Pain rating before treatment: 4, After treatment: 4 OBJECTIVE: Cognition: Oriented to: person, place, date/time, and situation Awake: Yes Alert: Yes Follows Commands: Yes 1-Step Yes Multi-Step Yes Inconsistent: No NEUROLOGICAL Light Touch: within functional limits bilateral LE Heel to champagne: WFL Tone: WFL BALANCE: Sitting: Static: Fair Dynamic: Poor+ Standing: Static: Poor+ Dynamic: Poor+ RANGE OF MOTION: within functional limits bilateral LE STRENGTH: deficit: 3+/5 BLE MMT Grossly. ENDURANCE: Poor+ Room air PROBLEM LIST: Decline in bed mobility, Decline in gait, Decline in transfers, Decreased strength, Decreased endurance, Decreased balance, Safety awareness deficits, and Pain ASSESSMENT: Patient is a 87 year old female seen secondary to the above listed diagnosis. Patient would benefit from continued PT to address the above listed deficits to maximize independence and safety with functional mobility. Pt's most notable deficits regarding decreased endurance with mobility/gait, impaired balance, decreased LE strength, and difficulty with transfers with the primary barrier being pain on the left gluteal. Pt otherwise motivated and participatory with therapy. Pt demonstrates medical necessity to render skilled PT services in order to facilitate safe DC/return to home. Rehabilitation Potential: good Goals: The following goals are to maximize independence and safety with functional mobility to eventually return to prior living situation and prior functional status. Upon discharge, patient and/or family will demonstrate the followin. Rolling: Independent Supine to sit: Independent Sit to supine: Independent 2. Sit to stand: Independent using LRAD Stand to sit: Independent using LRAD 3. Independent with ambulation, Feet: 300 using least assistive device. 4. Demonstrate or verbalize understanding of home exercise program in order to continue with their rehab on their own. Treatment Plan: Gait training, Therapeutic exercise, Transfer training, Balance training, Bed mobility training, Equipment needs assessment, Safety education, patient/caregiver education, Pain management, and Neuromuscular Re-Education Patient and Family member provided with preferred teaching of verbal information, written information, and demonstration on HEP and fall prevention. Shows readiness to learn. Verbal instruction and Written material teaching provided. Individual is able to read and verbalizes understanding of teaching provided and accurately returns demonstration of skill. Total Time Tx Codes in Minutes: 38 min Total Treatment Time in Minutes: 38 min Patient will be followed up by a PT , but this PT might not be the primary therapist[place] [phone] for questions or concerns on weekday coverage. Luis Antonio PT [facility] 2022-09-25 11:38:00 Associated Order(s): CONSULT ADULT PHYSICAL THERAPY Patient agreeable to working with physical therapy. Patient met supine. Recommend nursing staff utilize RW to safely assist patient with mobility out of the bed or chair. PHYSICAL THERAPY EVALUATION Consult received, chart reviewed and evaluation complete this date. Patient is referred to PT for evaluation and treatment. Patient is a 87 year old female who presents to hospital for Hematoma [T14.8XXA] , right posterior thigh hematoma with active contrast extravasation (noted on CT) s/p fall on AC. S/P right proximal lower extremity angiogram and embolization of the distal branch of P1 branch of the profunda femoral artery and distal branch of lateral circumflex femoral artery. Consult received, chart reviewed and evaluation completed this date 09/25/22 in conjunction with 09/24/22 FLORENTIN Coon/Eddie for safety given patient's decreased activity, tolerance. Billing for PT portion only Discharge Recommendations: Therapy Needs and Potential: Patient would benefit from continued physical therapy services to address: decline in bed mobility decline in transfers decline in gait and/or balance decreased endurance Patient demonstrates good potential to improve and meet therapy goals with further physical therapy services. Patient appears motivated to improve their functional mobility and return to their previous level of function. Patient demonstrates ability to tolerate atleast 30-60 minutes of physical therapy with active participation. Challenges to Home Transition: increased risk of falls decreased safety awareness Increased physical assistance with functional mobility Equipment recommendations: Patient has or access to necessary equipment Current Functional Status and/or Treatment: AM-PAC 6 Clicks (Raw Score 0=Dependent, 24=Independent; Low function Raw Score 0= Dependent, 32=Independent): Raw Score - Basic Mobility : 17 T-Scale Score - Basic Mobility : 39.67 Bed Mobility: Rolling: Minimal Assistance Supine-sit: Minimal Assistance Sitting balance Fair Scooting to edge of bed: Moderate Assistance compensatory strategies to complete rolling using side rails patient given verbal cues for proper body mechanics during transition supine to sit provided min assistance to swing both LE in/out of bed provided min assistance for elevation of the upper body to complete transition to upright position for safe techniques Transfers: Sit to stand: Minimal Assistance using Rolling Walker Stand to sit: Minimal Assistance using Rolling Walker Static/dynamic standing balance: Fair Verbal cueing provided for correct hand placement and correct use of AD Patient given education with verbal and tactile cues for proper feet placement, trunk movement, sequencing, and safety during STS. Ambulation: Assisted patient with ambulation as follows: 5 feet using Rolling Walker and Moderate Assistance. Patient presenting with Step-to gait pattern. Patient ambulated with short step length, patient with slight tremors, and unsteadiness. Patient needed moderate assistance with proper placement of RW, and turning. Therapeutic exercise: patient educated in Deep breathing, Fall prevention, General strengthening, Positioning, Relaxation/breathing techniques, and Safety awareness., instructed patient in the following: ankle pumps, heel slides, hip abduction/adduction, long arc quads, seated marching, patient/caregiver instructed to perform HEP 2-3 times per day, 10 repetitions., and patient/caregiver demonstrates understanding of instructions. Patient educated on functional mobility and the importance/benefits of active and safe performance to help prevent BLE DVT's, PNA, overall decrease in mobility, strength, and endurance, skin breakdown Weight shifting in supine and sitting position with correct frequency and duration to help prevent any possible skin breakdown. After session, patient up in chair. Call button provided. Nurse notified. PLAN OF CARE: While in the hospital, PT will follow patient at least 2-3 times per week,once or twice a day, per patient's tolerance and needs. See below for complete details. Admit Date: 09/23/2022 Hospital Diagnosis:Hematoma [T14.8XXA] right posterior thigh hematoma with active contrast extravasation (noted on CT) s/p fall on AC. S/P right proximal lower extremity angiogram and embolization of the distal branch of P1 branch of the profunda femoral artery and distal branch of lateral circumflex femoral artery. PT Diagnosis: Difficulty walking and Abnormality of gait and balance Weight Bearing Precaution: NA General Precautions: PPE used:Gloves, General, Fall, Lines/Tubes,Purewick catheter, ICU lines Bracing/Cast present or required:N/A PMH: Past Medical History: Diagnosis Date Diabetes mellitus Hypertension Thyroid disease PSH: Past Surgical History: Procedure Laterality Date HYSTERECTOMY JOINT SURGERY Prior Living Situation: in a house and with their daughter, DME: Rolling Walker, Four wheeled walker with seat, Wheel Chair Prior level of Mobility: community ambulation, house hold ambulation, ambulates with Rolling Walker , x 10 years or more per daughter Suspected ischemic or hemorraghic stroke:No Subjective: "I do not have pain, my daughter made me do this" Patient/Family Goals: To go home Patient/Family verbalizes understanding of condition: Yes PAIN: denies pain before and after session COMMUNICATION Primary Language: [place] Able to Verbalize needs: Yes Vision:good; no issues reported Hearing:hard of hearing ORIENTATION/COGNITION: Oriented to: person and date/time Awake: Yes Alert: Yes Dizzy: No Follows Commands: Yes 1-Step Yes Multi-Step Yes Inconsistent: Yes NEUROLOGICAL Light Touch: within functional limits bilateral LE Heel to champagne WNL Tone: intact BALANCE: Sitting: Static: Good Dynamic: Fair Standing: Static: Fair Dynamic: Poor+ RANGE OF MOTION: within functional limits bilateral LE STRENGTH: 4/5 (Good), bilateral LE ENDURANCE: Poor+, Room air SKIN INTEGRITY: intact PROBLEM LIST: Decline in bed mobility, Decline in gait, Decline in transfers, Decreased endurance, Decreased balance, and Safety awareness deficits ASSESSMENT: Patient is a 87 year old female seen secondary to the above listed diagnosis. Patient would benefit from continued PT to address the above listed deficits to maximize independence and safety with functional mobility. Rehabilitation Potential: good Goals: The following goals are to maximize independence and safety with functional mobility to eventually return to prior living situation and prior functional status. Upon discharge, patient and/or family will demonstrate the followin. Rolling: Independent Supine-sit: Independent Sit to supine: Independent 2. Sit to stand: Independent using Rolling Walker Stand to sit: Independent using Rolling Walker 3. Independent with ambulation, Feet: 300 using least assistive device. 4. Demonstrate or verbalize understanding of home exercise program in order to continue with their rehab on their own. Treatment Plan: Gait training, Therapeutic exercise, Transfer training, Balance training, Bed mobility training, Equipment needs assessment, Safety education, patient/caregiver education, and Neuromuscular Re-Education PATIENT EDUCATION: Patient provided with preferred teaching of verbal information on role of PT, plan of care, HEP,and Home management. Shows readiness to learn. Verbal instruction teaching provided. Individual verbalizes understanding of teaching provided. Total Time Tx Codes in Minutes: 31 min Total Treatment Time in Minutes: 34 min Rosalina Barrera PT, DPT [facility] A physical therapy evaluation of high complexity was completed based on meeting at the criteria below: A history of present problem with at least 3 or more personal factors (includes environmental factors) and/or comorbidities that impact the plan of care An examination of body systems using standardized tests and measures addressing a total of at least 4 or more elements from any of the following: body structures and functions, activity limitations, and/or participation limitations A clinical presentation with unstable and unpredictable characteristics Rosalina Barrera PT [facility] 2022-09-25 11:38:00 Associated Order(s): CONSULT ADULT OCCUPATIONAL THERAPY OT GENERAL EVALUATION Consult received via [facility], EMR reviewed and evaluation completed 09/25/22. Patient referred to occupational therapy for evaluation and treatment secondary to fall resulting in hematoma to R LE and s/p embolization with IR. Patient agreeable to participate in occupational therapy. 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 Pt seen in conjunction with PT (Khalif Barrera DPT) secondary to medical complexity with commodities and anticipated limited activity tolerance. Only billing for OT services. Discharge Recommendations: Therapy Needs and Potential:- Patient would benefit from continued skilled occupational therapy services to address: Decline in basic activities of daily living, Decline in instrumental activities of daily living, Decline in cognition, Decreased strength, Decreased range of motion, Decreased endurance, and Decreased coordination - Patient demonstrates good potential to improve and meet therapy goals with further skilled occupational therapy services. - Patient appears motivated to improve their B/IADLs and return to their previous level of function. - Patient demonstrates ability to tolerate at least 30-60 minutes of active participation in occupational therapy. - Patient exhibits limited activity tolerance. - Patient able to follow commands: 1-step Yes, Multi-step NT, Inconsistencies No Challenges to Home Transition:- Requires physical assistance for BADLS - Requires physical assistance for IADLS - Requires supervision or verbal cues for BADLS - Requires supervision or verbal cues for IADLS - Decreased safety awareness/judgement - Increased risk of falls - Environmental barriers -combo tub/shower Equipment Recommendations:Bedside commode PLAN OF CARE: At least 2x/week Precautions: Weight bearing status: WBAT R LE General: PPE Utilized: Gloves and Fall Bracing: N/A Current Occupational Performance and/or Treatment: Per family report, pt requires min-mod assistance at baseline for ADLs. Pt refused most ADLs secondary to agitation. AM-PAC 6 Clicks (Raw Score 0=Dependent, 24=Independent; Low function Raw Score 0= Dependent, 32=Independent): Raw Score - Daily Activity: 8 T-Scale Score - Daily Activity: 22.87 Feeding: Maximum Assistance, pt leaned forward to take a sip of water but did not want to hold cup herself; however, Pt demonstrated functional ROM during UE testing to bring utensils/cup to her mouth. Grooming: Total Assistance, while sitting EOB, daughter assisted in brushing pt's hair due to pt's limited mobility at B shoulder joints to reach hair. When asked if pt would like to brush her teeth or wash her face, pt refused. UB Dressing: Maximum Assistance, pt donned robe across back while sitting EOB with assist to bring sleeves up arms and robe across back and verbal/visual/tactile cues throughout. LB Dressing: Total Assistance, pt unable to participate in donning socks at this time. Toilet Transfer: Minimal Assistance, simulated toilet transfer by completing pivot transfer from EOB to bedside chair using Rolling Walker. Recommended to family a BSC to assist with safe transfers while pt is recovering. Toileting Hygiene: Total Assistance, purewick currently in place. Per family, pt is becoming increasingly agitated with inability to get to toilet on her own. Functional Mobility: HOB elevated; supine<->sit Min Assistance; sit<->stand Min Assistance and use of rolling walker; pivot transfer to bedside chair with rolling walker. Verbal cues given throughout for safety. Patient/caregiver educated on: Adaptive equipment and ADL training (see above), Role of OT, Safety awareness, and Compensatory strategies/adaptations (Spoke with family regarding pt's dementia and change in personality and provided tips to assist pt in feeling most comfortable away from home). Patient left reclining in bedside chair with call hendrix in reach. Daughters present. Please, see full evaluation below for more detail. OT EVALUATION: 87 year old female Admit date: 09/23/2022 Date of onset: 09/23/2022 Admit Diagnosis: Hematoma [T14.8XXA] OT Diagnosis: Impaired BADL independence, Impaired IADL independence, Weakness, Activity intolerance, Decreased endurance, Impaired self-care mobility, Decreased UE Function SARI, and Impaired cognition PMH: Past Medical History: Diagnosis Date Diabetes mellitus Hypertension Thyroid disease PSH: Past Surgical History: Procedure Laterality Date HYSTERECTOMY JOINT SURGERY PAIN: Denies pain before and after session. OCCUPATIONAL ROLES/HOME ENVIRONMENT: Home environment: Lives with daughter, 16/09 supervision/assistance is available, and Single story home. Bathroom access: Yes Bathroom setup: Combo Occupation(s): Retired Function prior to admission: Household ambulation, Community ambulation, Minimal Assistance-Moderate Assistance with ADL, and dependent with IADLs Suspected ischemic or hemorraghic stroke patient: No Equipment prior to admission: 4 wheeled walker, Grab bars, Rolling Walker, Shower chair , Wheelchair PERFORMANCE SKILLS/FACTORS: UE Muscle Tone: bilateral WNL UE ROM: bilateral AROM WFL except bilateral shoulder flexion ~90 degrees. Daughters report that one shoulder (could not remember) has a tear and needs to be replaced. UE Strength: SARI UE 4-/5 except bilateral deltoids NT due to possible rotator cuff tear(s). Hand dominance: right Dexterity/Coordination: bilateral Gross motor skills Intact Endurance - Sitting: Good Standing: Fair Sitting Balance - Static: Fair Dynamic: Fair Standing: Balance - Static Fair Dynamic: Fair Dizziness: Yes (resolved on its own) Skin Integrity: No breakdown noted and High risk for breakdown Sensation: Patient denies numbness and tinging. Oral Motor: WFL Communication: Able to verbalize needs Yes Other: N/A Vision: WFL Yes Other: glasses or contacts Hearing: hearing aid(s) and hard of hearing COGNITION: Orientation: NT Follows Commands: 1-step Yes Multi-step NT Inconsistencies No Safety Awareness/Judgment: Lacks insight to deficits PROBLEM LIST: Decreased independence with I/ADL, Decreased functional ROM, Decreased strength/endurance for functional activity, Impaired safety awareness, and Impaired Cognition REHAB POTENTIAL/PROGNOSIS: fair PATIENT/FAMILY GOALS: family would like to get their mother into the safest setting possible for recovery. TREATMENT/INTERVENTION PLAN: Patient/Caregiver Education, Equipment recommendations, and Daily living activities GOAL(S): By discharge, patient will increase independence in daily living skills as follows: 1 Patient will perform 3 in 1 BSC transfer with supervision. 2 Patient will don/doff Button up shirt with minimal assistance. 3 Patient will don/doff underwear, pants, or shorts with moderate assistance. 4 Patient will complete 1 grooming task with supervision while standing at the sink. 5 Patient will complete toileting hygiene, including clothing management, with supervision. 6 Patient will increase endurance for functional activity as evidenced by ability to sustain 20 minutes of active participation. 7 Patient/caregiver will verbalize/demonstrate understanding/proficiency in the following home programs: Fall prevention. PATIENT-FAMILY TEACHING Patient and Family member provided with preferred teaching of verbal information on Adaptive equipment and ADL training (see above), Role of OT, Safety awareness, and Compensatory strategies/adaptations (Spoke with family regarding pt's dementia and change in personality and provided tips to assist pt in feeling most comfortable away from home). Barriers to learning include cognitive limitations. Verbal instruction teaching provided. Individual verbalizes understanding of teaching provided and needs reinforcement of teaching. FLORENTIN Torres, URI Total Timed Treatment Codes: 10 Min Total Treatment Time: 34 Min Patient Complexity Level High - An occupational therapy evaluation of high complexity was completed using the above tests and measures. The following information was obtained: An occupational profile and medical and therapy history, including review of medical and/or therapy records and extensive additional review of physical, cognitive, or psychosocial history related to current functional performance, Various standardized and non-standardized assessments were used to identify at least 5 or more performance deficits related to physical, cognitive, or psychosocial skills that result in activity limitations and/or participation restrictions, and Clinical decision-making is of high analytic complexity, which includes an analysis of the patient profile, analysis of data from comprehensive assessment(s), and consideration of multiple treatment options. Patient present with comorbidities that affect occupational performance. Significant modification of tasks or assistance (e.g., physical or verbal) with assessment(s) is necessary to enable patient to complete evaluation component. Michael Rosales OT [facility] 2022-09-25 05:46:42 Associated Order(s): CONSULT ORTHOPAEDIC SURGERY ORTHOPAEDIC SURGERY CONSULTATION Attending Orthopaedic Surgeon: Dr. Cain Reason for Consultation: R knee periprosthetic lucency HPI: Ravinder Austin is a 87 year old female with concern for R knee periprosthetic lucency on xray. Pt fell 2 days ago in her home where she landed on her R hip/back. Pt reports pain of the R hip and back. Pt denies pain of the R knee. Pt denies numbness/tingling and paraesthesias. Patient lives in [place] Past Medical History: Past Medical History: Diagnosis Date Diabetes mellitus Hypertension Thyroid disease Past Surgical History: Past Surgical History: Procedure Laterality Date HYSTERECTOMY JOINT SURGERY Physical Exam Vitals: Vitals: 09/25/22 0200 09/25/22 0300 09/25/22 0400 09/25/22 0500 BP: 113/62 114/66 106/51 119/59 Pulse: 70 85 58 76 Resp: 12 11 12 10 Temp: 36.6 ?C (97.9 ?F) TempSrc: Axillary SpO2: 96% 95% 96% 95% Weight: Height: RLE - No obvious deformity; well healed TKA incision - No TTP - Motor intact TA/GS/EHL/FHL - SILT SP/DP/Sa/Gray/T - Palpable DP/PT Labs: Hemogram Recent Labs 09/23/22 1110 09/23/22 1455 09/23/229 09/24/227 09/24/2251309/24/22 0945 09/24/22200409/25/22 0424 WBC 11.67* 16.24* 11.22* 10.61 9.85 9.81 12.37* 8.89 HGB 11.5* 10.4* 8.8* 8.5* 8.5* 8.6* 7.6* 7.2* HCT 35.2* 31.9* 26.5* 25.7* 26.4* 26.6* 22.4* 22.0* PLT 224 223 184 185 201 205 197 178 Chemistry Recent Labs 09/23/22 1110 09/23/22 1455 09/24/22 0509/25/22 0424 NA 134* 134* 134* 128* K 4.6 4.9 4.6 4.8 CL 102 102 107 102 TCO2 24 25 21* 23 BUN 29* 29* 27* 38* CREAT 1.04 1.02 1.08* 1.27* GLU 146* 112* 100 102 PHOS -- -- 5.1* 4.5 MG -- -- 2.2 2.3 CA 8.5* 8.3* 8.1* 7.8* Imaging: XR HIP 1 VW RIGHT Result Date: 09/24/2022 Subtle lucency at the distal metaphysis of the femur just superior to the femoral prosthetic component, concerning for nondisplaced fracture. Suggest correlation with location of pain. Dedicated radiographs of the right knee could be performed. Metallic density projecting over the right proximal thigh-foreign body versus post surgical in etiology. XR FEMUR 2 VW RIGHT Result Date: 09/24/2022 Subtle lucency at the distal metaphysis of the femur just superior to the femoral prosthetic component, concerning for nondisplaced fracture. Suggest correlation with location of pain. Dedicated radiographs of the right knee could be performed. Metallic density projecting over the right proximal thigh-foreign body versus post surgical in etiology. IR EMBOLIZATION ARTERIAL OR VENOUS HEMORRHAGE OR LYMPHATIC EXTRAVASATION Result Date: 09/24/2022 Successful embolization of a distal branch of the P1 profundus femoris artery and distal branch of the lateral circumflex femoral artery. Plan: -Trend H- Leg straight 6 hours postop PROCEDURE SUMMARY: -Left common femoral arterial access with ultrasound guidance -Nonselective aortic catheterization and diagnostic aortogram with interpretation -Contralateral hypogastric artery catheterization and arteriography with interpretation -Contralateral common femoral artery catheterization and arteriography with interpretation -Contralateral lateral circumflex femoral artery catheterization and arteriography with interpretation -Contralateral superficial femoral artery catheterization and arteriography with interpretation -Contralateral deep femoral artery catheterization and angiography with interpretation -Contralateral first perforating branch of the profundus femoris artery catheterization and arteriography with interpretation -Contralateral distal P1 of the profunda femoris artery catheterization and arteriography with interpretation -Contralateral additional distal branch of the P1 of the profunda femoris artery catheterization and arteriography with interpretation -Embolization of the distal branch of the P1 profundus femoris artery with metallic coils and Gelfoam -Contralateral distal lateral circumflex femoral artery catheterization and arteriography with interpretation -Gelfoam embolization of a distal branch of the lateral circumflex artery to complete stasis -Groin access site closure with Angio-Seal. PROCEDURE DETAILS: Pre-procedure Consent: Informed consent for the procedure including risks, benefits and alternatives was obtained and time-out was performed prior to the procedure. Preparation: The site was prepared and draped using maximal sterile barrier technique including cutaneous antisepsis. Anesthesia/sedation Level of anesthesia/sedation: Moderate sedation (conscious sedation) Anesthesia/sedation administered by: Independent trained observer under attending supervision with continuous monitoring of the patient?s level of consciousness and physiologic status Access Local anesthesia was administered. The vessel was sonographically evaluated and judged to be patent. Real time ultrasound was used to visualize needle entry into the vessel and a permanent image was stored. A 5 Panamanian 10 cm vascular sheath was placed and connected to a heparinized saline drip. Laterality: Left Vessel accessed: Common femoral artery Access technique: Micropuncture set with 21 gauge needle Selective angiography A pigtail catheter was advanced into the abdominal aorta. A aortogram was performed. Findings: Widely patent abdominal aorta, bilateral common iliac arteries with mild to moderate atherosclerotic disease affecting the bilateral hypogastric arteries. The external iliac arteries and bilateral common femoral arteries are widely patent. No active extravasation or pseudoaneurysm was identified. An angled glidecath was then used to catheterize the hypogastric artery. Diagnostic arteriography was performed. Findings: Patent epigastric artery with no evidence of extravasation from the hypogastric artery branches. Moderate atherosclerotic disease affecting the proximal hypogastric artery. Reflux of contrast into the external iliac artery demonstrated 2 sites of contrast extravasation arising from the lateral circumflex artery and profunda femoris artery. The angle-tip Glidecath was then advanced into the common femoral artery and diagnostic arteriography was performed. Findings: Widely patent common femoral artery and superficial femoral artery. The lateral circumflex artery arises just proximal to the femoral bifurcation. There is a focus of contrast extravasation seen along the distal aspect of the distal branch of the lateral circumflex artery. The angle-tip glide catheter was then advanced into the lateral circumflex artery and diagnostic arteriography was performed. Findings: Widely patent lateral circumflex artery with trace extravasation seen from a distal third order branch from this vessel. The angle-tip Glidecath was then retracted and placed within the deep femoral artery and diagnostic arteriography was performed. Findings: Widely patent profunda femoris artery with active extravasation seen from the first perforating branch of the profunda femoris. A truselect catheter and Synchro wire were used to catheterize the first perforating branch of the profundus femoris and diagnostic arteriography was performed. Findings: Patent first perforating branch of the profunda femoris with active extravasation seen from a distal branch. The catheter was advanced more distally within this branch. Findings: Active extravasation noted from a distal third order branch of the profunda femoris. Embolization was performed from this branch. The catheter was then retracted and placed within the lateral circumflex artery. The distal branch of the lateral circumflex artery was catheterized and diagnostic arteriography performed. Findings: Widely patent lateral circumflex artery with active extravasation seen along the lateral aspect of a third order branch. A more distal branch of the lateral circumflex artery was then catheterized. Diagnostic arteriography was performed. Findings: Widely patent vessel with active extravasation seen along the lateral aspect of this branch. Gelfoam embolization was performed from this branch. Embolization Primary embolic agent: Hilal and Azur microvascular coils Catheter position for embolization: Distal branch of the lateral circumflex femoral artery and distal branch of the first perforating branch of the profunda femoris artery Completion angiography Vessel catheterized: Deep femoral artery Findings: Complete stasis of flow is noted within the embolized vascular territories. No additional sites of active extravasation identified. Closure Access site angiography performed: Yes Findings: Patent vessel with the access site lying within the common femoral artery below the inguinal ligament and above the femoral bifurcation. Arterial closure technique: Angioseal Hemostasis achieved from closure technique: Yes Duration of manual compression (minutes): 10 Contrast Contrast agent: Isovue 300 Additional Details Estimated blood loss (mL): Less than 10 Attestation Signer name: Nick Cardona I attest that I supervised the procedure and was immediately available. I reviewed the stored images and agree with the report as written. CT Trauma Abdomen Pelvis w Contrast Result Date: 09/23/2022 A large right gluteal hematoma with tubular hyperdensity in the medial aspect inferior after concerning for active bleeding/pseudoaneurysm. No hip fractures are identified. Soft tissue contusion of the upper thigh and buttocks. Findings regarding large hematoma in the right buttocks with concern for internal bleeding were communicated to Dr. Carl at 11:58 AM on 09/23/2022 by Chad Herman by telephone. Preliminary Report Dictated by Resident: Chad Herman I, Fidelina Molina MD., have reviewed this study and agree with the above report. CT Trauma Thorax w Contrast Result Date: 09/23/2022 A large right gluteal hematoma with tubular hyperdensity in the medial aspect inferior after concerning for active bleeding/pseudoaneurysm. No hip fractures are identified. Soft tissue contusion of the upper thigh and buttocks. Findings regarding large hematoma in the right buttocks with concern for internal bleeding were communicated to Dr. Carl at 11:58 AM on 09/23/2022 by Chad Herman by telephone. Preliminary Report Dictated by Resident: Chad Herman I, Fidelina Molina MD., have reviewed this study and agree with the above report. CT Trauma Cervical Spine wo Contrast Result Date: 09/23/2022 No evidence of acute fracture or traumatic subluxation. Trauma Head wo Contrast Result Date: 09/23/2022 No acute intracranial abnormality. Preliminary Report Dictated by Resident: Chad Herman I, Olga Ovalles MD., have reviewed this study and agree with the above report. Chest 1 View Result Date: 09/23/2022 Mild cardiac silhouette enlargement and mild pulmonary vascular prominence. No acute pulmonary abnormality identified. Assessment: Ravinder Austin is a 87 year old female s/p fall with R knee periprosthetic lucency. Patient's RLE is neurovascularly intact. Pt has no pain with ROM or TTP. Recommendations: - No acute orthopedic intervention indicated - WBAT RLE - Rest per primary - All findings and diagnoses were discussed with patient at time of visit. All patient questions were answered. Patient states they understand and are in agreement with the treatment plan at this time. Efrain Rogers MD Orthopaedic Surgery Resident Agree with note above and plan of care [facility] - Health History and Physical Notes Date/Time Note Provider Source 2022-09-23 15:10:38 Formatting of this n ote is different from the original. TRAUMA SURGERY HISTORY & PHYSICAL Date of Service: 09/23/2022 Chief complaint: Right hip pain HISTORY OF MECHANISM OF INJURY Ground level fall Date of Injury- 09/23/2022 Time of Injury- 1000 Transfer from [facility]. Patient was walking to bathroom with walker and fell on back, head hit wall. Transferred here due to large right hip hematoma with active extravasation. PAIN/INJURY Locations: Right hip Quality: Persistent Severity: Moderated PRIMARY SURVEY/GCS Heart rate- 82 Blood Pressure- 110/61 Temperature- 98.6F Respiratory Rate- 16 Glascow Coma Scale: 15 Airway: Patent Comment- Breathing: Bilateral breath sounds equal Circulation: Radial pulses present and equal and Pedal pulses present and equal Pupils: Equal/reactive and 2 mm ALLERGIES: Allergies Allergen Reactions Ciprofloxacin Rash MEDICATIONS: Home Medications: Medications Prior to Admission Medication Sig Dispense Refill Last Dose rivastigmine 4.6 mg/24 hour patch Apply 1 Patch to skin in the morning. Use this prescription first. 30 Patch 0 rivastigmine 9.5 mg/24 hour patch Apply 1 Patch to skin in the morning. 30 Patch 5 acetaminophen-codeine 300-30 mg tablet Take 1 tablet by mouth every 8 (eight) hours as needed for Pain (scale 4-6). 15 tablet 0 levothyroxine 50 mcg tablet Take 50 mcg by mouth every morning. metFORMIN 500 mg tablet Take 500 mg by mouth. aspirin 81 mg chewable tablet Take 81 mg by mouth daily. Biotin 1 mg Tab Take by mouth. CALCIUM CARBONATE/VITAMIN D3 (CALCIUM 500 + D, D3, ORAL) Take by mouth. Fish Oil-Covel-3 Fatty Acids (FISH OIL) 360-1,200 mg Cap Take by mouth. losartan-hydrochlorothiazide (HYZAAR) 100-12.5 mg per tablet Take 1 Tab by mouth daily. traMADOL (ULTRAM) 50 mg tablet Take 50 mg by mouth every 6 (six) hours as needed. VITAMIN B COMP AND VIT C NO.6 (VITAMIN B COMP WITH VIT C NO.6 ORAL) Take by mouth. VITAMIN B COMPLEX NO.12-NIACIN ORAL Take by mouth. Last Taken: Last night Hospital Medications: Current Facility-Administered Medications Medication Dose Route Frequency Last Rate Last Admin acetaminophen (TYLENOL) tablet 650 mg 650 mg Oral Q6HPRN FENTanyl PF (SUBLIMAZE (PF)) injection Slow IV Push PRN 25 mcg at 09/23/22 1646 HYDROcodone-acetaminophen (NORCO 5) 5-325 mg tablet 1 tablet 1 tablet Oral Q6HPRN lactated ringers IV infusion 1,000 mL 1,000 mL IV Infusion CONTINUOUS morpHINE (2 mg/mL) injection 2 mg 2 mg Slow IV Push Q6HPRN pantoprazole (PROTONIX) injection 40 mg 40 mg Slow IV Push Q24H PAST MEDICAL HISTORY: No problems updated. Past Medical History: Diagnosis Date Diabetes mellitus Hypertension Thyroid disease Atrial fibrillation PAST SURGICAL HISTORY: Past Surgical History: Procedure Laterality Date HYSTERECTOMY JOINT SURGERY non-contributory to this encounter FAMILY HISTORY: No family history on file. non-contributory to this encounter SOCIAL HISTORY: Social History Socioeconomic History Marital status: Spouse name: Not on file Number of children: Not on file Years of education: Not on file Highest education level: Not on file Occupational History Not on file Tobacco Use Smoking status: Never Smokeless tobacco: Never Substance and Sexual Activity Alcohol use: No Drug use: No Sexual activity: Never Other Topics Concern Not on file Social History Narrative She lives with her daughter. Social Determinants of Health Financial Resource Strain: Not on file Food Insecurity: Not on file Transportation Needs: Not on file Physical Activity: Not on file Stress: Not on file Social Connections: Not on file Intimate Partner Violence: Not on file Housing Stability: Not on file non-contributory to this encounter REVIEW OF SYSTEMS Eye: negative HEENT: (+) headache CV: negative Respiratory: negative GI: negative : negative Musculoskeletal: (+) myalgia, (+) arthralgia Skin: negative Neuro: negative Hematic/lymphatic: negative Estimated Weight: 52.2 Kg PHYSICAL EXAM 1. HEAD a. Inspect and palpate scalp and face for fractures. Tenderness to right scalp. No obvious lesions. b. Perform otoscopic examination of nose and ears (CSF leak, hemotympanum). Normal c. Examine eyes. - Eye movement Normal -Size of Pupils Normal -Reaction of pupils to light Normal -Visual acuity Normal d. Inspect mouth for malocclusion, carious and/or missing teeth and lacerations. Normal e. Check for facial fractures: -Palpate nose; inspect septum for hematoma. Normal -Palpate zygomatic arches and infraorbital ridges. Normal -Check stability of midface and mandible. Normal 2. NECK a. Inspect for wounds, hematoma, swelling and venous distention. Normal b. Palpate for subcutaneous emphysema and tracheal deviation. Normal c. Palpate cervical spine for evidence of injury. Normal 3. CHEST a. Inspect for wounds, hematoma, swelling and ecchymosis. Normal b. Observe chest and it's movements (prominent hemothorax, paradoxical, etc). Normal c. Palpate for fractures and subcutaneous emphysema. Check thoracic cage stability using anterior-posterior and lateral compressions. Normal d. Auscultate for breath and heart sounds. Normal 4. ABDOMEN a. Inspect for wounds, hematoma, swelling and ecchymosis. Normal b. Auscultate for bowel sounds. Normal c. Palpate for tenderness, guarding (voluntary vs. involuntary), rebound, and masses (bladder, etc). Normal d. Check stability of pelvis by compressing iliac wings and symphysis pubis. Normal, stable pelvis but tenderness at right hip. Abdominal binder wrapped around pelvis. 5. MUSCULOSKELETAL a. Observe posture (decerebrate, decorticate, etc) and identify wounds, swelling, ecchymosis, and hematoma.. Normal b. Palpate each extremity for tenderness, deformity, crepitus, and/or fracture. Record pulses. Tenderness to palpation of pelvis but worse at right hip with overlying ecchymosis c. Record muscle strength, range of motion and sensation bilaterally. Normal for b/l UE and left lower extremity. Movement limited in RLE. d. Record pulses. Normal 6. GENITALIA AND PERINEUM a. Inspect penis (blood at meatus) and perineum (ecchymosis or laceration), priapism. Deferred b. Perform rectal exam. Record: N/A - Position of prostate N/A - Anal sphincter activity N/A - Rectal sensation N/A - Rectal blood N/A 7. BACK (logroll patient with neck stabilized) a. Inspect for wounds, hematuria, swelling, ecchymosis and fractures. Normal b. Palpate spinal vertebrae, ribs and pelvis for tenderness and/or fractures. Normal LABORATORY RESULTS CBC BMP PT/INR WBC (10*3/?L) Date Value 09/23/2022 16.24 (H) NA (mmol/L) Date Value 09/23/2022 134 (L) No results found for: "PT" RBC (10*6/?L) Date Value 09/23/2022 3.38 (L) K (mmol/L) Date Value 09/23/2022 4.9 INR (no units) Date Value 09/23/2022 1.9 PLT (10*3/?L) Date Value 09/23/2022 223 CALCIUM (mg/dL) Date Value 09/23/2022 8.3 (L) HGB (g/dL) Date Value 09/23/2022 10.4 (L) CL (mmol/L) Date Value 09/23/2022 102 aPTT HCT (%) Date Value 09/23/2022 31.9 (L) BUN (mg/dL) Date Value 09/23/2022 29 (H) APTT Patient (Seconds) Date Value 09/23/2022 36 CREATININE (mg/dL) Date Value 09/23/2022 1.02 GLUCOSE (mg/dL) Date Value 09/23/2022 112 (H) CO2 TOTAL (mmol/L) Date Value 09/23/2022 25 X-RAY RESULTS CT Trauma Abdomen Pelvis w Contrast Result Date: 09/23/2022 CT SCAN OF THE THORAX, ABDOMEN, AND PELVIS WITH IV CONTRAST HISTORY: Patient with mechanical fall. TECHNIQUE: A CT scan of the thorax, abdomen, and pelvis was performed during venous phase after uncomplicated administration of intravenous contrast. FINDINGS: THORAX: No lung contusions or pneumothorax is identified. Minimal subsegmental atelectasis is noted at the lung bases. The heart is globally enlarged with marked left atrial enlargement. A right ICD lead terminates within the right ventricle. The trachea, major bronchi, and great vessels are unremarkable. No acute skeletal fracture is identified. Chronic compression deformity of T6 vertebral body. Chronic fracture of posterior right seventh rib. Marked degenerative changes of glenohumeral joints and unchanged bilateral glenohumeral joint effusions/chronic bursitis. ABDOMEN: The liver, gallbladder, spleen, pancreas, adrenals, and kidneys show no evidence of traumatic injury. A couple of bilateral small simple renal cysts are present. A fat-containing right supraumbilical ventral hernia is unchanged. A focal area of increased enhancement in the inferior right hepatic lobe (2:27, 4, 41), likely represent muscle shunt or perfusional, unchanged. The bowel shows no sign of obstruction. Moderate calcified plaque abdominal aorta and iliac branches. PELVIS: The urinary bladder is unremarkable. The uterus is surgically removed. No pelvic free fluid is identified. A large fluid collection compatible with a hematoma in the right buttocks and posterior compartments of the upper thigh measures at least 4.1 x 9.4 x 15.9 cm (AP by TV by CC). Hyperattenuating tubular foci in the inferior portion of this section is present (2:119). Focal areas of fat stranding around this hematoma present A large right gluteal hematoma with tubular hyperdensity in the medial aspect inferior after concerning for active bleeding/pseudoaneurysm. No hip fractures are identified. Soft tissue contusion of the upper thigh and buttocks. Findings regarding large hematoma in the right buttocks with concern for internal bleeding were communicated to Dr. Carl at 11:58 AM on 09/23/2022 by Chad Herman by telephone. Preliminary Report Dictated by Resident: Chad Herman I, Fidelina Molina MD., have reviewed this study and agree with the above report. CT Trauma Thorax w Contrast Result Date: 09/23/2022 CT SCAN OF THE THORAX, ABDOMEN, AND PELVIS WITH IV CONTRAST HISTORY: Patient with mechanical fall. TECHNIQUE: A CT scan of the thorax, abdomen, and pelvis was performed during venous phase after uncomplicated administration of intravenous contrast. FINDINGS: THORAX: No lung contusions or pneumothorax is identified. Minimal subsegmental atelectasis is noted at the lung bases. The heart is globally enlarged with marked left atrial enlargement. A right ICD lead terminates within the right ventricle. The trachea, major bronchi, and great vessels are unremarkable. No acute skeletal fracture is identified. Chronic compression deformity of T6 vertebral body. Chronic fracture of posterior right seventh rib. Marked degenerative changes of glenohumeral joints and unchanged bilateral glenohumeral joint effusions/chronic bursitis. ABDOMEN: The liver, gallbladder, spleen, pancreas, adrenals, and kidneys show no evidence of traumatic injury. A couple of bilateral small simple renal cysts are present. A fat-containing right supraumbilical ventral hernia is unchanged. A focal area of increased enhancement in the inferior right hepatic lobe (2:27, 4, 41), likely represent muscle shunt or perfusional, unchanged. The bowel shows no sign of obstruction. Moderate calcified plaque abdominal aorta and iliac branches. PELVIS: The urinary bladder is unremarkable. The uterus is surgically removed. No pelvic free fluid is identified. A large fluid collection compatible with a hematoma in the right buttocks and posterior compartments of the upper thigh measures at least 4.1 x 9.4 x 15.9 cm (AP by TV by CC). Hyperattenuating tubular foci in the inferior portion of this section is present (2:119). Focal areas of fat stranding around this hematoma present A large right gluteal hematoma with tubular hyperdensity in the medial aspect inferior after concerning for active bleeding/pseudoaneurysm. No hip fractures are identified. Soft tissue contusion of the upper thigh and buttocks. Findings regarding large hematoma in the right buttocks with concern for internal bleeding were communicated to Dr. Carl at 11:58 AM on 09/23/2022 by Chad Herman by telephone. Preliminary Report Dictated by Resident: Chad Herman I, Fidelina Molina MD., have reviewed this study and agree with the above report. CT Trauma Cervical Spine wo Contrast Result Date: 09/23/2022 Indication: blunt trauma Comparison: CT cervical spine 07/04/2022 and RL: [id number] ORDERING PHYSICIAN: ABE CARL TECHNIQUE: Multidetector row helical CT of the cervical spine was performed without administration of intravenous contrast. Coronal and sagittal reformations were obtained. This CT scan was performed with one or more of the following dose optimization techniques: iterative reconstruction, automatic exposure control, and/or manual adjustment of mAs and kVp according to the patient's size. FINDINGS: There is straightening of the normal cervical lordosis. No acute fractures or subluxations are identified. The vertebral body heights are maintained. There are multilevel degenerative changes with anterior disc osteophytes and disc degeneration. Anterolisthesis of C3 on C4. The prevertebral soft tissues are unremarkable. No evidence of acute fracture or traumatic subluxation. Trauma Head wo Contrast Result Date: 09/23/2022 EXAM: CT TRAUMA HEAD WO CONTRAST HISTORY: 87 years-old Female; Provided indication: blunt trauma . History obtained from [facility]: Fall from standing. Patient states she hit her head on the wall, landing on her right hip. Patient has visible hematoma to right hip. TECHNIQUE: Axial CT of the head was performed and reconstructed at 5 mm intervals. Coronal and sagittal reformatted images were generated. COMPARISON: CT head dated 07/04/2022 FINDINGS: Moderate bifrontal brain volume loss, likely age-related. The ventricles and sulci are prominent but within normal limits for the patient's age. No midline shift or pathological extra-axial fluid collection is present. The basal cisterns are unremarkable. No acute intracranial hemorrhage or significant mass effect is visualized. Periventricular and subcortical white matter hypodensities are nonspecific but likely represent sequelae of microvascular ischemic disease. The butterfield-white matter differentiation is preserved. The mastoid air cells and paranasal air sinuses are clear. The calvarium and central skull base are unremarkable.Intracranial atherosclerosis. Subcentimeter calcified pineal gland cyst. No acute intracranial abnormality. Preliminary Report Dictated by Resident: Olga Arnold MD., have reviewed this study and agree with the above report. Chest 1 View Result Date: 09/23/2022 INDICATION: blunt trauma ORDERING PROVIDER: ABE CARL TECHNIQUE: Frontal view of the chest. RL: [id number] COMPARISON: CT chest 06/17/2022 FINDINGS: Mild cardiac silhouette enlargement is noted. There is a single lead cardiac device. Mild pulmonary vascular prominence present. No substantial pulmonary consolidation, pleural effusion, or pneumothorax is demonstrated. Chronic deformities of both shoulders noted. Mild cardiac silhouette enlargement and mild pulmonary vascular prominence. No acute pulmonary abnormality identified. RIES/PROBLEMS/DIAGNOSES and TREATMENT PLAN: Active Problems: Large right gluteal hematoma with active extravasation Plan: Neuro: MMPC Q2H neuro checks CV: Monitor for atrial fibrillation - hold Xarelto for now Continuous cardiac monitoring Pulm: IS/pulm toilet GI: Protonix NPO /Renal: Strict intake and output Daily BMP Heme/ID: Consult IR to embolize Trend CBC Prophylaxis: SCDs Hold Lovenox Dispo: Admit to ICU Dr. Sunshine, Faculty, was notified of admission on 09/23/2022. Jeri Bond MD PGY-1 General Surgery 09/23/2022 18:44 Associated attestation - Beau Sunshine MD - 09/23/2022 8:05 PM CDT Attending Seen and examined by me with Dr Lizama on 23Sep2022 in the ED shortly after arrival. Agree with the history, exam, and medical decision making in her note that was directed by me. Briefly, this is an 87 yo woman who presents with a fall from standing in the bathroom striking her head. This information was obtained from patient and daughter. She was initially evaluated at our [facility] and found to have an expanding haematoma in the right buttock with contrast extravasation inducing the transfer. On exam, alert and oriented, neurologically intact, abdomen soft and non-distended. Some drop in BP in the ED which responded to some volume and stablised. Her past medical history includes Past Medical History: Diagnosis Date Diabetes mellitus Hypertension Thyroid disease Notable labs, imaging, and other tests that we ordered include leukocytosis, acute blood loss anaemia, normal platelets, PT 21.4 sec associated with xaralto for atrial fibrillation, mild hyponatremia, mild azotemia. Imaging revealed a gluteal haemorrhage with active extravasation, normal head and neck CT. Sent to IR for angioembolisation which was successful. Her principal diagnosis for us is fall with gluteal artery laceration and angioembolisation. Medical decision-making for her course is complicated by additional conditions including anticoagulation for atrial fibrillation. Our plan is to hold xaralto for now and close monitoring in the ICU after angioembolisation. I discussed these determinations and findings with Emergency Medicine provider in [place] to develop and refine further plans. RISKS: Moderate based upon acute bleed and intervention to stop it which has a significant risk of recrudescence. Number and Complexity of Problems Addressed High - one illness/injury with severe exacerbation, progression, or side effects of treatment Amount and Complexity of Data to be Reviewed and Analysed Moderate - discussion of management or test interpretation with another external provider not separately reported Risk of Complications and/or Morbidity or Mortality of Patient Management Moderate - moderate risk of morbidity from additional diagnostic testing or treatment CPT: 46967 - Admit/Observation Moderate (at least two of number and complexity of problems, amount of data, and risk of complications are moderate) [facility] - Health Procedure Notes Date/Time Note Provider Source 2022-09-28 19:43:10 Formatting of this n ote might be different from the original. VASCULAR AND INTERVENTIONAL RADIOLOGY PROCEDURE NOTE Pre-procedure diagnosis: Right Gluteal Hematoma, Down-Trending H&H Post-procedure diagnosis: Right Gluteal Hematoma, Down-Trending H&H Procedure: RLE Angiogram & Embolization Anesthesia: Local Findings: - Access site: left common femoral artery - Following Arteriograms were performed: ... Abdominal Aortogram ... Right External Iliac Arteriogram ... Right Lateral Circumflex Femoral Artery ... Branches of Right Lateral Cx Artery ... Right Common Femoral Artery - Arteriograms showed no active extravasation or pseudoaneurysm. However, there was abnormal vessel cut-off in the branches of the right lateral circumflex femoral artery. This was the site of bleeding on previous angiogram and decision was therefore made to proceed with embolization. - Embolization of the branches of right lateral circumflex femoral artery. - Access site closure: Perclose Complications: None Condition: Stable EBL: < 10 mL. PLAN: - Lie flat for 4 hours with head of bed < 30 degrees for 4 hours. - Continue to trend H&H and transfuse if < 7. - If continues to have down-trending H&H, recommend CTA to rule out any other source of bleeding. - IR will continue to follow. Full dictated note to follow in PACS. [facility] 2022-09-23 20:01:49 Formatting of this n ote might be different from the original. VASCULAR AND INTERVENTIONAL RADIOLOGY PROCEDURE NOTE Pre-procedure diagnosis: Right posterior thigh hematoma with active contrast extravasation (noted on CT) Post-procedure diagnosis: Same Procedure: Ultrasound guided left common femoral artery access sheath placement (CPT code: 54795 and 84872) Limited retrograde angiogram through common femoral artery access sheath with interpretation (CPT code: 53722) Aortogram catheterization (CPT code: 64950) and angiography with interpretation (CPT code: 90641). Right lower extremity catheter selection and interpretation (CPT code: 48823) Contralateral internal iliac artery catheterization (CPT code: 39758) and angiography with interpretation Contralateral CONSTRUCTION MANAGER catheterization (CPT code: 70554) and angiography with interpretation Contralateral lateral circumflex femoral artery catheterization (CPT code: 30070) and angiography with interpretation Contralateral SFA catheterization (CPT code: 31469) and angiography with interpretation Contralateral P1 of profunda femoral artery catheterization (CPT code: 19732) and angiography with interpretation Contralateral distal P1 of profunda femoral artery catheterization (CPT code: 57939) and angiography with interpretation Contralateral distal branch of P1 of profunda femoral artery catheterization (CPT code: 68541) and angiography with interpretation Contralateral profunda femoral artery catheterization (CPT code: 86614) and angiography with interpretation Embolization of distal branch of P1 branch of the profunda femoral artery (CPT code: 21846). Contralateral distal lateral circumflex femoral artery catheterization (CPT code: 12405 x 2) and angiography with interpretation Gelfoam embolization of distal branch of lateral circumflex femoral artery (CPT code: 74317). Closure of CF arteriotomy site with 6Fr Angioseal (CPT code: G0269). Findings: Diagnostic angiograms of the above arteries are positive for active contrast extravasation in the territory of the right thigh region Successful embolization of the feeding arteries with gelfoam and metallic coils Postembolization arteriography demonstrates successful embolization of the with no active extravastion. Complications: None immediate Condition: Unchange Estimated blood loss: < 10 mL Recommendation -Plan: ICU care and hemodynamic monitoring. - Keep right and left leg straight for four hours. - Trend H/H Q4H; transfuse to keep Hgb >7; have active type and screen. - IR on board and will continue to follow, please page IR for any questions. - Case discussed with IR faculty, Dr Cardona. Thank you for allowing us participate in the care of this patient. Full dictated note to follow in PACS. Post-Procedure Sedation Addendum Immediately prior to start of sedation, the patient was evaluated and there was no change from the pre-procedure evaluation. I was present and directed medical care. The patient underwent moderate sedation for the procedure. The medications administered were recorded in the MAR; oxygenation, ventilation and circulation were monitored continuously and were recorded in the EMR. I evaluated the patient after the procedure. The patient was evaluated immediately as recovering from sedation. Complications: None RAD-DIAGNOSTIC RADIOLOGY STAFF [facility] Notes Date/Time Note Provider Source 2024-04-15 16:50:07 E Rx did not go through to pharmacy. Resending. Requested Prescriptions Signed Prescriptions Disp Refills rivastigmine 9.5 mg/24 hour transdermal patch 90 Patch 3 Sig: Apply 1 Patch to skin in the morning. Authorizing Provider: MIKE WALDEN Ordering User: KERRI CASILLAS [facility] 2024-03-31 18:42:12 Informed pt about lab results [facility] Maritza Amaya MA [facility] 2024-03-30 10:51:31 Spoke to daughter of pt regarding lab results. N CHAIN MARKER Maritza Amaya MA [facility] 2024-03-29 10:02:32 Appointment has been added to the wait list. [facility] 2024-03-29 08:13:00 Ravinder Austin is a 89 year old female Pts daughter is calling and is asking if pt can be seen sooner than 04/20. Pt was in the er 03/28. Pt was in the ER due to confusion and does not know where she is at. Please advise. PH [phone] [facility] Haley Connolly [facility] 2024-03-28 14:20:00 Urine culture did not grow anything Stop antibiotics Follow up with neurology. [facility] 2023-02-28 15:15:52 90 day supply given per pt request. Requested Prescriptions Signed Prescriptions Disp Refills rivastigmine 9.5 mg/24 hour patch 90 Patch 1 Sig: APPLY 1 PATCH TOPICALLY TO THE SKIN IN THE MORNING Authorizing Provider: MIKE WALDEN Ordering User: KERRI CASILLAS N CHAIN MARKER [facility] 2022-10-07 14:08:26 Formatting of this n ote might be different from the original. Called Pt EC Vanessa to inform her that the providers only see pts in clinic. Lisa Sherman [facility] 2022-10-04 13:36:14 Formatting of this n ote might be different from the original. Ravinder Austin is a 87 year old female Patient's relative (not listed as EC) Eulalia Austin, is calling as patient is at [facility] in [place]. Patient had a follow up appt scheduled with [facility] on 10/11. Requesting an appointment with either provider to go to the facility instead. Patient's daughter, Vanessa, can be reached - Ros Zuniga [facility] 2022-10-01 13:19:34 Formatting of this n ote is different from the original. TRANSITIONAL CARE MANAGEMENT ASSESSMENT 10/01/2022 Ravinder Austin [id number] Ravinder Austin is a 87 year old /White female was admitted on 09/23/[address] She was discharged on 09/30/22 with discharge disposition of HR- Routine Discharge. Admitting Physician: Beau Sunshine Discharge Diagnosis: FINAL DIAGNOSIS: Gluteal hematoma SECONDARY DIAGNOSIS: Hypothyroidism Atrial fibrillation PRINCIPAL PROCEDURE: Embolization of distal branch of P1 branch of the profunda femoral artery, Gelfoam embolization of distal branch of lateral circumflex femoral artery 09/23/22 ADDITIONAL PROCEDURES: Embolization of the branches of right lateral circumflex femoral artery Linked Episodes Type: Episode: Status: Noted: Resolved: Last update: Updated by: TRANSITION OF CARE TCM Active 10/01/2022 10/01/2022 1:19 PM Cassandra Cooper, ALEJANDRA Comments: TCM [id number] outreach documentation: Discharge Assessment Chart Assessed: 10/01/22 Chart Reviewed - Post Discharge Call Deferred due to Change in Discharge Status.: Discharged to SNF Discharge Plan: Longterm Facility (SNF) Discharge Location: SNF location: [address] [address] () [phone] (F) [phone] MOT: Accepting physician: DR Alexis Future Appointments: Future Appointments Provider Department Dept Phone 10/11/2022 2:30 PM Nina Saenz FNP [facility] Neurology, [place] [phone] Transition CM follow-up call deferred at this time. Cassandra Cooper RN, MSN, MEDSURG-BC, CCRN, CCM Transitions of Director Of Neurology Proficient Multifocal Button Inspector Build Manager Management Office: [phone] Cassandra Cooper RN [facility] 2022-09-29 22:00:38 Formatting of this n ote might be different from the original. Problem: Discharge Planning Goal: Adequate for discharge Outcome: Progressing as expected Goal: Effective communication Outcome: Progressing as expected Problem: Falls, Risk of Goal: Absence of falls Outcome: Progressing as expected Problem: Infection, Risk of or Actual Goal: Absence of infection Outcome: Progressing as expected Problem: Mental Status - Impaired, Risk of Goal: Mental status restored to baseline Outcome: Progressing as expected Goal: Absence of physical injury Outcome: Progressing as expected Problem: Pain Goal: Control of pain at or below patient's documented comfort goal Outcome: Progressing as expected Goal: Reduction in pain sensation Outcome: Progressing as expected Problem: Respiratory Function - Impaired Goal: Able to cough effectively Outcome: Progressing as expected Goal: Adequate oxygenation Outcome: Progressing as expected Goal: Adequate work of breathing Outcome: Progressing as expected Goal: Patent airway Outcome: Progressing as expected Problem: Tissue Perfusion - Altered, Risk of Goal: Hemodynamically stable Outcome: Progressing as expected Alexis Boogie RN [facility] 2022-09-29 07:55:47 Formatting of this n ote might be different from the original. Problem: Discharge Planning Goal: Adequate for discharge Outcome: Progressing as expected Goal: Effective communication Outcome: Progressing as expected Problem: Falls, Risk of Goal: Absence of falls Outcome: Progressing as expected Problem: Infection, Risk of or Actual Goal: Absence of infection Outcome: Progressing as expected Problem: Mental Status - Impaired, Risk of Goal: Mental status restored to baseline Outcome: Progressing as expected Goal: Absence of physical injury Outcome: Progressing as expected Problem: Pain Goal: Control of pain at or below patient's documented comfort goal Outcome: Progressing as expected Goal: Reduction in pain sensation Outcome: Progressing as expected Problem: Respiratory Function - Impaired Goal: Able to cough effectively Outcome: Progressing as expected Goal: Adequate oxygenation Outcome: Progressing as expected Goal: Adequate work of breathing Outcome: Progressing as expected Goal: Patent airway Outcome: Progressing as expected Problem: Tissue Perfusion - Altered, Risk of Goal: Hemodynamically stable Outcome: Progressing as expected Ck Thomas RN [facility] 2022-09-28 11:17:20 Formatting of this n ote might be different from the original. Problem: Discharge Planning Goal: Adequate for discharge Outcome: Progressing as expected Goal: Effective communication Outcome: Progressing as expected Problem: Falls, Risk of Goal: Absence of falls Outcome: Progressing as expected Problem: Infection, Risk of or Actual Goal: Absence of infection Outcome: Progressing as expected Problem: Pain Goal: Control of pain at or below patient's documented comfort goal Outcome: Progressing as expected Goal: Reduction in pain sensation Outcome: Progressing as expected Problem: Respiratory Function - Impaired Goal: Able to cough effectively Outcome: Progressing as expected Goal: Adequate oxygenation Outcome: Progressing as expected Goal: Adequate work of breathing Outcome: Progressing as expected Goal: Patent airway Outcome: Progressing as expected Problem: Tissue Perfusion - Altered, Risk of Goal: Hemodynamically stable Outcome: Progressing as expected Marcelo Bloom RN [facility] 2022-09-27 22:50:40 Formatting of this n ote might be different from the original. Problem: Discharge Planning Goal: Adequate for discharge Outcome: Progressing as expected Goal: Effective communication Outcome: Progressing as expected Problem: Falls, Risk of Goal: Absence of falls Outcome: Progressing as expected Problem: Infection, Risk of or Actual Goal: Absence of infection Outcome: Progressing as expected Problem: Mental Status - Impaired, Risk of Goal: Mental status restored to baseline Outcome: Progressing as expected Goal: Absence of physical injury Outcome: Progressing as expected Problem: Pain Goal: Control of pain at or below patient's documented comfort goal Outcome: Progressing as expected Goal: Reduction in pain sensation Outcome: Progressing as expected Problem: Respiratory Function - Impaired Goal: Able to cough effectively Outcome: Progressing as expected Goal: Adequate oxygenation Outcome: Progressing as expected Goal: Adequate work of breathing Outcome: Progressing as expected Goal: Patent airway Outcome: Progressing as expected Problem: Tissue Perfusion - Altered, Risk of Goal: Hemodynamically stable Outcome: Progressing as expected Rehka Garg RN [facility] 2022-09-27 06:22:26 Formatting of this n ote might be different from the original. Problem: Discharge Planning Goal: Adequate for discharge Outcome: Progressing as expected Goal: Effective communication Outcome: Progressing as expected Problem: Falls, Risk of Goal: Absence of falls Outcome: Progressing as expected Problem: Infection, Risk of or Actual Goal: Absence of infection Outcome: Progressing as expected Problem: Mental Status - Impaired, Risk of Goal: Mental status restored to baseline Outcome: Progressing as expected Goal: Absence of physical injury Outcome: Progressing as expected Problem: Pain Goal: Control of pain at or below patient's documented comfort goal Outcome: Progressing as expected Goal: Reduction in pain sensation Outcome: Progressing as expected Problem: Respiratory Function - Impaired Goal: Able to cough effectively Outcome: Progressing as expected Goal: Adequate oxygenation Outcome: Progressing as expected Goal: Adequate work of breathing Outcome: Progressing as expected Goal: Patent airway Outcome: Progressing as expected Problem: Tissue Perfusion - Altered, Risk of Goal: Hemodynamically stable Outcome: Progressing as expected Phuong Butterfield RN [facility] 2022-09-26 15:15:02 Formatting of this n ote is different from the original. Called and spoke with Vanessa who confirmed pt is still in the hospital and would d/c to [facility] once she is ready for d/c. Vanessa confirmed she still had refills of Rivastigmine at the pharmacy. She stated she would call and schedule a f/u appt once her mom is d/c from the hospital. Requested Prescriptions Refused Prescriptions Disp Refills rivastigmine 4.6 mg/24 hour patch 30 Patch 0 Sig: Apply 1 Patch to skin in the morning. Use this prescription first. Refused By: KERRI CASILLAS Reason for Refusal: Patient has requested refill too soon Kerri Casillas LVN [facility] 2022-09-26 05:54:45 Formatting of this n ote might be different from the original. Problem: Discharge Planning Goal: Adequate for discharge Outcome: Progressing as expected Goal: Effective communication Outcome: Progressing as expected Problem: Falls, Risk of Goal: Absence of falls Outcome: Progressing as expected Problem: Infection, Risk of or Actual Goal: Absence of infection Outcome: Progressing as expected Problem: Mental Status - Impaired, Risk of Goal: Mental status restored to baseline Outcome: Progressing as expected Goal: Absence of physical injury Outcome: Progressing as expected Problem: Pain Goal: Control of pain at or below patient's documented comfort goal Outcome: Progressing as expected Goal: Reduction in pain sensation Outcome: Progressing as expected Problem: Respiratory Function - Impaired Goal: Able to cough effectively Outcome: Progressing as expected Goal: Adequate oxygenation Outcome: Progressing as expected Goal: Adequate work of breathing Outcome: Progressing as expected Goal: Patent airway Outcome: Progressing as expected Problem: Tissue Perfusion - Altered, Risk of Goal: Hemodynamically stable Outcome: Progressing as expected [facility] 2022-09-25 09:01:30 Formatting of this n ote might be different from the original. Per daughter pt is currently in the hospital in [place] and would like to know if provider can come see the pt. Daughter is also wanting a refill on rx because the hospital does not have it. [facility] 2022-09-25 07:16:03 Formatting of this n ote might be different from the original. Problem: Discharge Planning Goal: Adequate for discharge Outcome: Progressing as expected Goal: Effective communication Outcome: Progressing as expected Problem: Falls, Risk of Goal: Absence of falls Outcome: Progressing as expected Problem: Infection, Risk of or Actual Goal: Absence of infection Outcome: Progressing as expected Problem: Mental Status - Impaired, Risk of Goal: Mental status restored to baseline Outcome: Progressing as expected Goal: Absence of physical injury Outcome: Progressing as expected Problem: Pain Goal: Control of pain at or below patient's documented comfort goal Outcome: Progressing as expected Goal: Reduction in pain sensation Outcome: Progressing as expected Problem: Respiratory Function - Impaired Goal: Able to cough effectively Outcome: Progressing as expected Goal: Adequate oxygenation Outcome: Progressing as expected Goal: Adequate work of breathing Outcome: Progressing as expected Goal: Patent airway Outcome: Progressing as expected Problem: Tissue Perfusion - Altered, Risk of Goal: Hemodynamically stable Outcome: Progressing as expected [facility] 2022-09-24 01:48:08 Formatting of this n ote might be different from the original. Problem: Discharge Planning Goal: Adequate for discharge Outcome: Progressing as expected Goal: Effective communication Outcome: Progressing as expected Problem: Falls, Risk of Goal: Absence of falls Outcome: Progressing as expected Problem: Infection, Risk of or Actual Goal: Absence of infection Outcome: Progressing as expected Problem: Mental Status - Impaired, Risk of Goal: Mental status restored to baseline Outcome: Progressing as expected Goal: Absence of physical injury Outcome: Progressing as expected Problem: Pain Goal: Control of pain at or below patient's documented comfort goal Outcome: Progressing as expected Goal: Reduction in pain sensation Outcome: Progressing as expected Problem: Respiratory Function - Impaired Goal: Able to cough effectively Outcome: Progressing as expected Goal: Adequate oxygenation Outcome: Progressing as expected Goal: Adequate work of breathing Outcome: Progressing as expected Goal: Patent airway Outcome: Progressing as expected Problem: Tissue Perfusion - Altered, Risk of Goal: Hemodynamically stable Outcome: Progressing as expected [facility] 2022-09-23 18:13:07 Formatting of this n ote might be different from the original. Pt to go to ICU bed after IR procedure Henna Zaman RN [facility] 2022-09-23 15:53:58 Formatting of this n ote might be different from the original. Pt to IR [facility] 2022-09-23 15:46:53 Formatting of this n ote might be different from the original. IR at bedside consenting pt. Pt reports last intake at 0900AM [facility] 2022-09-23 14:58:16 Formatting of this n ote might be different from the original. Pelvic binder remains in place T [facility] 2022-09-23 14:54:46 Formatting of this n ote might be different from the original. Upgraded to Trauma STAT. [facility] 2022-09-23 14:54:23 Formatting of this n ote might be different from the original. Dr Sunshine at bedside for pt evaluation [facility] 2022-09-23 14:32:38 Formatting of this n ote might be different from the original. Trauma EVAL transfer from [place] Ravinder Austin is a 87 year old female who presents to the ED with chief complaints of GLF on blood thinners. Pt was walking with her walker when she tripped and fell. Pt hit her head but did not lose consciousness. Pt denies head, neck, and back pain. Pt takes Xarelto and is compliant. Pt has pain and bruising noted to right hip/buttock area. (+) hematoma. Pelvic binder placed at 11:38am. AAOx4. VSS. RR E/U. Skin warm and dry. NAD noted. Roomed to ED105 for trauma eval. Tanika Ordonez RN [facility] 2022-09-23 13:26:10 Formatting of this n ote might be different from the original. Patient transferred to [facility] ER for diagnosis of head injury, hematoma to right femur. Patient agrees to transfer/admit plan and verbalized understanding of plan of care, family aware of plan. Patient awake alert, oriented, resp reg unlabored, skin w/d PIV patent x2, no s/s infiltration noted. Fluids continued with EMS personnel. No adverse reaction to medications given while in ED. Report given to [facility] EMS personnel. [facility] 2022-09-23 13:12:00 Formatting of this n ote might be different from the original. Report given to [facility] EMS personnel [facility] 2022-09-23 12:39:10 Formatting of this n ote might be different from the original. Spoke with Nancy, [facility] ETA 30 min Marsha Alvarez PCT [facility] 2022-09-23 12:28:38 Formatting of this n ote might be different from the original. Report called to Eloise [facility] 2022-09-23 12:17:00 Formatting of this n ote might be different from the original. Pelvic binder applied to patient [facility] 2022-09-23 11:31:00 Formatting of this n ote might be different from the original. Patient back in room from [facility] 2022-09-23 11:11:00 Formatting of this n ote might be different from the original. Patient transported to CT scan with RN and trauma team. Continuous cardiac monitoring and serial vital signs monitored by ALEJANDRA Zhong. April Zhong RN [facility] 2022-09-23 11:03:10 Formatting of this n ote might be different from the original. Patient arrived via [facility] for a fall from standing from home. EMS states patient was walking to the bathroom with her walker, turned to see if someone was behind her and fell straight back. EMS states she hit her head on the wall, and landed on her right hip. EMS states patient has a visible hematoma to her right hip. Patient is currently taking blood thinners. [facility] 2022-09-23 10:52:00 Formatting of this n ote might be different from the original. Trauma alert called [facility]
--- NOTE | 2024-05-08 15:16 | RAD REPORT ---
EXAMINATION: XR LEFT FOOT CLINICAL INDICATION: PAIN TECHNIQUE: Multiple projections of the left foot were obtained. COMPARISON: No prior exam. FINDINGS: Diffuse osteopenia is seen. Mild to moderate dorsal soft tissue swelling. No acute fracture or dislocation evident. Moderate plantar calcaneal spur. If patient's symptomatology persists, MRI follow-up recommended.
--- NOTE | 2024-05-08 15:31 | ER ---
Nurse's Notes [facility] Name: Anna Cuello Age: 89 yrs Sex: Female : 1935 Arrival Date: 05/08/2024 Time: 14:27 Bed 12 Private MD: Diagnosis: Contusion of left foot Presentation: 05/08 14:31 Chief complaint: Chief complaint: Pt's family states "she dropped a picture frame on aa5 the top of her foot on April 28 and still has bruising and swelling to her foot". Pt takes Xarelto. 14:32 Coronavirus screen: At this time, the client does not indicate any symptoms associated aa5 with coronavirus-19. Ebola Screen: Patient denies travel to an Ebola-affected area in the 21 days before illness onset. Initial Sepsis Screen: Does the patient meet any 2 criteria? No. Patient's initial sepsis screen is negative. Does the patient have a suspected source of infection? No. Patient's initial sepsis screen is negative. Risk Assessment: Do you want to hurt yourself or someone else? Patient reports no desire to harm self or others. Onset of symptoms was April 28, 2024. 14:32 Acuity: JERALD 3 aa5 14:32 Method Of Arrival: Wheelchair aa5 Historical: - Allergies: 14:31 Cipro; aa5 - PMHx: 14:31 diabetes mellitus; Gout; Hypertensive disorder; Hypothyroidism; aa5 14:35 Atrial fibrillation; aa5 - PSHx: 14:31 Total abdominal hysterectomy; aa5 14:35 Pacemaker; aa5 - Immunization history:: Adult Immunizations unknown. - Infectious Disease History:: Denies. - Social history:: Smoking status: Patient denies any tobacco usage or history of. Vital Signs: 14:32 BP 132 / 63; Pulse 78; Resp 18 S; Temp 97.5(O); Pulse Ox 97% on R/A; Weight 54.3 kg aa5 (R); Height 4 ft. 11 in. (R); 14:32 Body Mass Index 24.18 (54.30 kg, 149.86 cm) aa5 ED Course: 14:30 Patient arrived in ED. al6 14:31 Arm band placed on. aa5 14:32 Krystal Brady FNP-C is [facility]. kb 14:32 Ashutosh Rodriguez MD is Attending Physician. kb 14:34 Triage completed. aa5 15:11 Foot Left 3 View XRAY In Process Unspecified. EDMS Administered Medications: No medications were administered Outcome: 15:30 Discharge ordered by . kb 15:37 Patient left the ED. aa5 Signatures: Dispatcher [employer] EDMS Krystal Brady, WORD PROCESSOR TECHNICIAN-C WORD PROCESSOR TECHNICIAN-Tiki Ordonez RN RN aa5 Chyna Hairston6 Corrections: (The following items were deleted from the chart) 14:34 14:31 Chief complaint: aa5 aa5
--- NOTE | 2024-05-08 15:31 | EDPHYS ---
Physician Documentation [facility] Name: Anna Cuello Age: 89 yrs Sex: Female : 1935 Arrival Date: 05/08/2024 Time: 14:27 Bed 12 Private MD: ED Physician Ashutosh Rodriguez HPI: 05/08 15:08 This 89 yrs old Female presents to ER via Wheelchair with complaints of Foot Injury. kb 15:08 Pt is an 89 year old female who presents for left foot pain. States a picture frame kb fell onto left foot 10 days ago. Pt is on xarelto so they didn't worry about the bruising, but it has been 10 days and there is still swelling so daughters brought pt in for xrays. . Historical: - Allergies: 14:31 Cipro; aa5 - PMHx: 14:31 diabetes mellitus; Gout; Hypertensive disorder; Hypothyroidism; aa5 14:35 Atrial fibrillation; aa5 - PSHx: 14:31 Total abdominal hysterectomy; aa5 14:35 Pacemaker; aa5 - Immunization history:: Adult Immunizations unknown. - Infectious Disease History:: Denies. - Social history:: Smoking status: Patient denies any tobacco usage or history of. ROS: 15:06 Constitutional: As per HPI kb Exam: 15:06 Constitutional: This is a well developed, well nourished patient who is awake, alert, kb and in no acute distress. Head/Face: Normocephalic, atraumatic. ENT: Moist Mucous membranes Cardiovascular: Regular rate Respiratory: Respirations even and unlabored. No increased work of breathing. Talking in full sentences Neuro: Awake and alert, GCS 15, oriented to person, place, time, and situation. 15:06 Musculoskeletal/extremity: Extremities: grossly normal except: noted in the left foot: ecchymosis, pain, swelling, tenderness, ROM: intact in all extremities, Circulation is intact in all extremities. Sensation intact. Weight bearing: able to fully bear weight, unchanged, Vital Signs: 14:32 BP 132 / 63; Pulse 78; Resp 18 S; Temp 97.5(O); Pulse Ox 97% on R/A; Weight 54.3 kg aa5 (R); Height 4 ft. 11 in. (R); 14:32 Body Mass Index 24.18 (54.30 kg, 149.86 cm) aa5 MDM: 14:32 Medical Screening Exam initiated kb 15:07 Differential diagnosis: dislocation, closed fracture, contusion. Data reviewed: vital kb signs, nurses notes. Historians other than the Patient: Daughter/Son: daughter. 15:30 Counseling: I had a detailed discussion with the patient and/or guardian regarding the kb historical points, exam findings, and any diagnostic results supporting the discharge/admit diagnosis, radiology results, the need for outpatient follow up, a family practitioner, to return to the emergency department if symptoms worsen or persist or if there are any questions or concerns that arise at home. 05/08 14:40 Order name: Foot Left 3 View XRAY; Complete Time: 15:17 kb Administered Medications: No medications were administered Disposition: 18:25 Co-signature as Attending Physician, Ashutosh Rodriguez MD I reviewed the patient's care rt provided by the Advanced Practice Provider and agree with the diagnosis and treatment plan. Disposition Summary: 05/08/24 15:30 Discharge Ordered Notes: Location: Home kb Condition: Stable kb Diagnosis - Contusion of left foot kb Followup: kb - With: Emergency Department - When: As needed - Reason: Worsening of condition Followup: kb - With: Private Physician - When: 2 - 3 days - Reason: Recheck today's complaints, Continuance of care, Re-evaluation by your physician Discharge Instructions: - Discharge Summary Sheet kb - Foot Contusion, [id number] kb Forms: - Medication Reconciliation Form kb - Antibiotic Education kb - Prescription Opioid Use kb - Patient Portal Instructions kb - Leadership Thank You Letter kb Signatures: Dispatcher [employer] Krystal Keane, PERFECTO LEDBETTER-Tiki Ordonez, RN RN aa5 Ashutosh Rodriguez MD MD rt
[2024-05-08 15:40] VITALS: BP 132/63; TEMP 97.5; O2SAT 97
== END 2024-05-08 15:37 | disposition home or self-care (01) ==
LOC: ER 14:27
DX: S90.32XA Contusion of left foot, initial encounter (principal); W22.8XXA Striking against or struck by other objects, initial encounter
CPT/HCPCS: 99281